=== PATIENT | female | born 1975 | race Caucasian/White ===

== ENCOUNTER 2021-10-23 12:10 | Emergency (ER) | payer OTHER, SELFPAY ==
[2021-10-23 12:20] VITALS: BP 140/90; PULSE 100; RESP 18; TEMP 36.4; O2SAT 100; BMI 35.4
--- NOTE | 2021-10-23 12:38 | ED_ITS ---
HPI - Nausea/Vomiting/Diarrhea General Chief complaint: Diarrhea Stated complaint: Diarrhea Time Seen by Provider: 10/23/21 12:11 History of Present Illness HPI Narrative: This 46-year-old female comes in reporting nausea, vomiting, and diarrhea for the past 7 or 8 days. She states that she has been able to take some liquids but does feel that her mouth is dry. She does not report any fevers. She has some crampy abdominal discomfort that occurs occasionally. She denies having any blood in the toilet or mucus type diarrhea. She states that she did take an antibiotic for urinary tract infection and completed this prior to these symptoms. She does not report any upper respiratory symptoms or shortness of breath. Related Data Home Medications Medication Instructions Recorded Confirmed albuterol sulfate 90 mcg/actuation 2 inh inhalation Q4H 08/24/21 09/24/21 breath activated powder inhaler,sensor (Proair Digihaler) diphenhydramine 25 1 tab PO Q6H PRN 08/24/21 09/24/21 mg-acetaminophen 500 mg tablet (Tylenol PM Extra Strength) epinephrine 0.3 mg/0.3 mL 0.3 mg IM ONCE 08/24/21 09/24/21 injection, auto-injector ferrous gluconate 324 mg (38 mg 324 mg PO BID 08/24/21 09/24/21 iron) tablet fluticasone propionate 50 2 spray intranasal QDAY 08/24/21 09/24/21 mcg/actuation nasal spray,suspension (Allergy Relief (fluticasone)) furosemide 20 mg tablet 20 mg PO DAILY 08/24/21 09/24/21 loratadine 10 mg tablet (Allergy 10 mg PO QDAY 08/24/21 09/24/21 Relief (loratadine)) metformin 500 mg tablet 500 mg PO BID 08/24/21 09/24/21 nitrofurantoin macrocrystal 100 mg 100 mg PO BID 08/24/21 09/24/21 capsule omeprazole 20 mg capsule,delayed 20 mg PO BID 08/24/21 09/24/21 release phenazopyridine 200 mg tablet 200 mg PO TID PRN 08/24/21 09/24/21 prochlorperazine maleate 10 mg 10 mg PO TID PRN 08/24/21 09/24/21 tablet pseudoephedrine HCl 120 mg 120 mg PO Q12H 08/24/21 09/24/21 tablet,extended release (Sudafed 12 Hour) scopolamine base 1 mg over 3 days 1 patch transdermal Q3D PRN 08/24/21 09/24/21 transdermal patch spironolactone 25 mg tablet 25 mg PO BID 08/24/21 09/24/21 warfarin 3 mg tablet See Rx Instructions PO QDAY 08/24/21 09/24/21 Previous Rx's Medication Instructions Recorded cyclobenzaprine 10 mg tablet 10 mg PO DAILY PRN muscle spasm 09/01/21 #30 tabs minocycline 100 mg capsule 100 mg PO QDAY #90 caps 09/01/21 tramadol 50 mg tablet 50 - 100 mg PO Q6H PRN pain #90 09/01/21 tabs gabapentin 300 mg capsule 300 - 600 mg PO TID PRN pain #360 10/05/21 caps trazodone 50 mg tablet 50 mg PO .hs #90 tabs 10/05/21 ondansetron HCl 4 mg tablet 4 mg PO Q6H #20 tabs 10/23/21 Allergies Allergy/AdvReac Type Severity Reaction Status Date / Time bee venom protein (honey bee) Allergy Severe Verified 09/24/21 13:00 clavulanic acid Allergy Severe Verified 09/24/21 13:00 diphtheria,pertussis Allergy Severe Swelling Verified 09/24/21 13:00 (acellular),te [From Boostrix Tdap] Penicillins Allergy Severe Hives Verified 09/24/21 13:00 Sulfa (Sulfonamide Allergy Severe N/V Verified 09/24/21 13:00 Antibiotics) latex Allergy Intermediate Verified 09/24/21 13:00 cat dander Allergy Mild Hives Verified 09/24/21 13:00 codeine Allergy Mild Vomiting Verified 09/24/21 13:00 dog dander Allergy Mild Hives Verified 09/24/21 13:00 strawberry Allergy Mild numbness Verified 09/24/21 13:00 lips and tongue Dust Allergy Severe Wheezing Uncoded 09/24/21 13:00 Tetanus toxoid Allergy Severe major Uncoded 09/24/21 13:00 swelling Tobacco Allergy Intermediate sinusitis Uncoded 09/24/21 13:00 Birds Allergy Mild Hives Uncoded 09/24/21 13:00 tropical fruits Allergy Mild hives, Uncoded 09/24/21 13:00 swelling Review of Systems Status of ROS: Reports: 10 or more systems reviewed and unremarkable except as noted in History and below Narrative: Constitutional: No fevers, no weight gain or loss. Eyes: No discharge. No vision changes. HENT: No congestion, no sore throat, no ear pain. Cardiovascular: No chest pain, no palpitations. Respiratory: No shortness of breath, no wheezes, no cough. Gastrointestinal: Crampy abdominal pain, nausea, vomiting, and diarrhea as described above. Genitourinary: No dysuria, no hematuria. Musculoskeletal: Normal range of motion. Skin: No rashes, no pruritis. Neurological: No dizziness, weakness, sensory change, speech change. Endo/Heme/Allergies: No bruising or bleeding. No polydipsia. Pysch: no suicidality, no anxiety, no insomnia. All other systems reviewed and are negative. [facility] Medical History Shoulder injury UTI (urinary tract infection) Surgical History History of right breast biopsy History of third molar tooth extraction (10/24/08) History of tonsillectomy and adenoidectomy (10/24/08) Hx of nasal septoplasty S/P breast biopsy S/P foot surgery S/P tonsillectomy and adenoidectomy Status post surgery of both feet Family History Other Diabetes Social History Smoking Status: Never smoker Do you use any of these nicotine containing products: None How often do you have a drink containing alcohol: monthly or less AUDIT-C Alcohol total score: 1 Non-prescribed substance use: denies use Exam Narrative: Exam Narrative: Constitutional: Well-developed, well-nourished, no acute distress. HEENT: Normocephalic, atraumatic. Neck: Normal range of motion. Nontender. Supple. Heart: Regular. No murmurs. Normal rate. Intact distal pulses. Lungs: Clear to auscultation. No chest discomfort. No wheezes, rhonchi, or rales. Abdomen: Normal bowel sounds. Nontender. No rebound tenderness. Genitalia: Deferred. Back: No midline tenderness. Normal range of motion. Extremities: Normal range of motion. No injury. Skin: Intact. No rash. Warm. No erythema or pallor. Neurologic: No altered sensation. No weakness. Alert and oriented. Psychiatric: No suicidality. No anxiety or depression. No insomnia. Nursing notes and vitals signs are reviewed. Const: Vital Signs, click to edit/add: Vital Signs - 24 hr 10/23/21 12:20 Temperature 97.6 F Pulse Rate [Left P ulse Oximeter] 100 Respiratory Rate 18 Blood Pressure [Ri ght Upper Arm] 140/90 H Pulse Oximetry 100 Oxygen Delivery Me thod Room Air Course Vital Signs Vital signs: Initial Vital Signs Temperature 97.6 F 10/23/21 12:20 Temperature Source Temporal Artery Scan 10/23/21 12:20 Pulse Rate 100 10/23/21 12:20 Respiratory Rate 18 10/23/21 12:20 Blood Pressure 140/90 H 10/23/21 12:20 Blood Pressure Mean 106 10/23/21 12:20 Blood Pressure Position Sitting 10/23/21 12:20 Pulse Oximetry 100 10/23/21 12:20 Oxygen Delivery Method 10/23/21 12:20 Vital Signs Temperature 97.6 F 10/23/21 12:20 Pulse Rate 100 10/23/21 12:20 Respiratory Rate 18 10/23/21 12:20 Blood Pressure 140/90 H 10/23/21 12:20 Pulse Oximetry 100 10/23/21 12:20 Oxygen Delivery Method 10/23/21 12:20 Temperature 97.6 F 10/23/21 12:20 Pulse Rate 100 10/23/21 12:20 Respiratory Rate 18 10/23/21 12:20 Blood Pressure 140/90 H 10/23/21 12:20 Pulse Oximetry 100 10/23/21 12:20 Oxygen Delivery Method 10/23/21 12:20 MDM - Nausea/Vomiting/Diarrhea MDM Narrative Medical decision making narrative: This patient comes in with nausea, vomiting, and diarrhea for the past week or so. She arrives with normal vital signs. An IV was established where she received a L of normal saline and 4 mg of Zofran. Lab results returned with findings that are consistent with previous values. She does have some anemia and has a history of non alcoholic steatohepatitis. With the treatments received today her nausea is much improved. She is okay to return home and advance her diet as tolerated. She received a prescription for Zofran. Lab Data Labs: Lab Results 10/23/21 10/23/21 10/23/21 Range/Units 12:36 12:36 12:36 WBC 3.28 L (4.50-11.00) K/uL RBC 3.30 L (4.00-5.20) m/uL Hgb 9.9 L (12.0-16.0) gm/dL Hct 32.0 L (33.0-51.0) % MCV 97 (80-100) fL MCH 30 (26-34) pg MCHC 31 L (32-36) gm/dL RDW Coeff of Kaleb 17.1 H (11.5-15.5) % Plt Count 78 L (140-440) K/uL Neut % (Auto) 74.2 H (42.0-72.0) % Lymph % (Auto) 9.1 L (20-44) % Davison % (Auto) 14.3 H (0.0-11.0) % Eos % (Auto) 1.5 (0.0-7.0) % Baso % (Auto) 0.9 (0.0-3.0) % Neut # (Auto) 2.40 (1.7-7.0) K/uL Lymph # (Auto) 0.30 L (0.90-2.90) K/uL Davison # (Auto) 0.50 (0.00-0.90) K/UL Eos # (Auto) 0.00 (0.00-0.50) K/uL Baso # (Auto) 0.00 (0.00-0.30) K/uL Abs Immat Gran (auto) 0.00 (0.00-0.30) K/uL Sodium 134 L (135-149) mmol/L Potassium 3.5 L (3.6-5.1) mmol/L Chloride 103 (96-114) mmol/L Carbon Dioxide 21 (20-32) mmol/L BUN < 2 L (5-24) mg/dL Creatinine 0.4 L (0.5-1.5) mg/dL Estimated Creat Clear 146.92 Estimated GFR 124 ml/min Glucose 115 (60-115) mg/dL Calcium 8.3 L (8.4-10.6) mg/dL Total Bilirubin (0.1-1.5) mg/dL Direct Bilirubin (0.0-0.5) mg/dL AST (12-35) U/L ALT (4-35) U/L Alkaline Phosphatase (40-150) U/L Total Protein (6.0-8.3) g/dL Albumin (3.3-5.0) g/dL Lipase (23-300) U/L SARS-CoV-2 (PCR) Negative SARS-CoV-2 (Negative) Influenza Type A (PCR) Negative PCR FLU A (Negative) Influenza Type B (PCR) Negative PCR FLU B (Negative) 10/23/21 Range/Units 12:36 WBC (4.50-11.00) K/uL RBC (4.00-5.20) m/uL Hgb (12.0-16.0) gm/dL Hct (33.0-51.0) % MCV (80-100) fL MCH (26-34) pg MCHC (32-36) gm/dL RDW Coeff of Kaleb (11.5-15.5) % Plt Count (140-440) K/uL Neut % (Auto) (42.0-72.0) % Lymph % (Auto) (20-44) % Davison % (Auto) (0.0-11.0) % Eos % (Auto) (0.0-7.0) % Baso % (Auto) (0.0-3.0) % Neut # (Auto) (1.7-7.0) K/uL Lymph # (Auto) (0.90-2.90) K/uL Davison # (Auto) (0.00-0.90) K/UL Eos # (Auto) (0.00-0.50) K/uL Baso # (Auto) (0.00-0.30) K/uL Abs Immat Gran (auto) (0.00-0.30) K/uL Sodium (135-149) mmol/L Potassium (3.6-5.1) mmol/L Chloride (96-114) mmol/L Carbon Dioxide (20-32) mmol/L BUN (5-24) mg/dL Creatinine (0.5-1.5) mg/dL Estimated Creat Clear Estimated GFR ml/min Glucose (60-115) mg/dL Calcium (8.4-10.6) mg/dL Total Bilirubin 1.5 (0.1-1.5) mg/dL Direct Bilirubin 0.8 H (0.0-0.5) mg/dL AST 48 H (12-35) U/L ALT 23 (4-35) U/L Alkaline Phosphatase 221 H (40-150) U/L Total Protein 7.2 (6.0-8.3) g/dL Albumin 3.1 L (3.3-5.0) g/dL Lipase 135 (23-300) U/L SARS-CoV-2 (PCR) (Negative) Influenza Type A (PCR) (Negative) Influenza Type B (PCR) (Negative) Discharge Plan Discharge Clinical Impression: Gastroenteritis Patient Disposition: Home, Self-Care Condition: Stable Instructions: Gastroenteritis (ED) Additional Instructions: Increased diet as tolerated. Take medication as needed and indicated. Follow up with MD or return if worsening. Prescriptions: New ondansetron HCl 4 mg tablet 4 mg PO Q6H Qty: 20 0RF No Action loratadine [Allergy Relief (loratadine)] 10 mg tablet 10 mg PO QDAY pseudoephedrine HCl [Sudafed 12 Hour] 120 mg tablet extended release 120 mg PO Q12H Proair Digihaler 90 mcg/actuation aero powdr breath act w/sensor 2 inh inhalation Q4H epinephrine 0.3 mg/0.3 mL auto-injector 0.3 mg IM ONCE Rx Instructions: as a single dose; may repeat once ferrous gluconate 324 mg (38 mg iron) tablet 324 mg PO BID fluticasone propionate [Allergy Relief (fluticasone)] 50 mcg/actuation spray,suspension 2 spray intranasal QDAY Rx Instructions: administer into each nostril furosemide 20 mg tablet 20 mg PO DAILY metformin 500 mg tablet 500 mg PO BID nitrofurantoin macrocrystal 100 mg capsule 100 mg PO BID Rx Instructions: must administer with a meal/food omeprazole 20 mg capsule,delayed release(DR/EC) 20 mg PO BID phenazopyridine 200 mg tablet 200 mg PO TID PRN prochlorperazine maleate 10 mg tablet 10 mg PO TID PRN scopolamine base 1 mg over 3 days patch 3 day 1 patch transdermal Q3D PRN spironolactone 25 mg tablet 25 mg PO BID diphenhydramine-acetaminophen [Tylenol PM Extra Strength] 25-500 mg tablet 1 tab PO Q6H PRN warfarin 3 mg tablet See Rx Instructions PO QDAY Label Comments: KWONG 3 mg,M, 1.5 MG, TU 3 MG, W 1.5 MG, TH 3 MG, F 1.5 MG, SA 3 MG Rx Instructions: 1.5-3 PO every day; 1.5 mg Q Monday, and 3 mg Q Monday tramadol 50 mg tablet 50 - 100 mg PO Q6H PRN (Reason: pain) Qty: 90 0RF cyclobenzaprine 10 mg tablet 10 mg PO DAILY PRN (Reason: muscle spasm) Qty: 30 3RF minocycline 100 mg capsule 100 mg PO QDAY Qty: 90 3RF trazodone 50 mg tablet 50 mg PO .hs Qty: 90 3RF gabapentin 300 mg capsule 300 - 600 mg PO TID PRN (Reason: pain) Qty: 360 5RF Follow Up/Referrals: Dl Oneil MD [Primary Care Provider] - Stand Alone Forms: [facility] Info Instructions
[2021-10-23] MEDS: 0.9 % SODIUM CHLORIDE 1000 ml 1,000 ML IV (13:07)
[2021-10-23 13:08] LABS: Basophils Percent Auto 0.9 % (0.0-3.0); Eosinophils Percent Auto 1.5 % (0.0-7.0); Hemoglobin* 9.9 gm/dL (12.0-16.0); Lymphocytes Percent Auto 9.1 % (20-44); Mean Corpuscular HGB Conc 31 gm/dL (32-36); Mean Corpuscular Hemoglobin 30 pg (26-34); Mean Corpuscular Volume 97 fL (80-100); Monocytes Percent Auto 14.3 % (0.0-11.0); Neutrophils Percent Auto 74.2 % (42.0-72.0); Platelet Count* 78 K/uL (140-440); RDW Coefficient of Variation % 17.1 % (11.5-15.5); White Blood Count* 3.28 K/uL (4.50-11.00)
[2021-10-23] MEDS: ONDANSETRON 2 MG/ML inj 4 MG IVP (13:08)
[2021-10-23 13:10] LABS: Slide Review Reflex No
[2021-10-23 13:44] LABS: PCR FLU A Negative PCR FLU A (Negative); PCR FLU B Negative PCR FLU B (Negative)
[2021-10-23 13:53] LABS: SARS PCR* Negative SARS-CoV-2 (Negative)
[2021-10-23 13:57] LABS: Chloride* 103 mmol/L (96-114); Sodium* 134 mmol/L (135-149)
[2021-10-23 13:58] LABS: Albumin* 3.1 g/dL (3.3-5.0); Potassium* 3.5 mmol/L (3.6-5.1)
[2021-10-23 14:00] LABS: Carbon Dioxide* 21 mmol/L (20-32); Creatinine* 0.4 mg/dL (0.5-1.5); Est. Creatinine Clearance* 146.92; Estimated Glomerular Filt Rate 124 ml/min
[2021-10-23 14:01] LABS: Aspartate Amino Transferase* 48 U/L (12-35); Bilirubin Direct* 0.8 mg/dL (0.0-0.5); Bilirubin Total* 1.5 mg/dL (0.1-1.5); Calcium* 8.3 mg/dL (8.4-10.6); Glucose* 115 mg/dL (60-115); Total Protein* 7.2 g/dL (6.0-8.3)
[2021-10-23 14:02] LABS: Alanine Aminotransferase* 23 U/L (4-35); Alkaline Phosphatase* 221 U/L (40-150); Lipase* 135 U/L (23-300)
[2021-10-23 14:06] LABS: Blood Urea Nitrogen* < 2 mg/dL (5-24)
[2021-10-23 14:27] VITALS: BP 139/90; PULSE 95; RESP 18; O2SAT 100
== END 2021-10-23 14:34 | disposition home or self-care (01) ==
PROVIDERS: Emergency Provider Emergency Medicine Emergency Medical Services; PCP Family Medicine
DX: K52.9 Noninfective gastroenteritis and colitis, unspecified (principal); D64.9 Anemia, unspecified; K75.81 Nonalcoholic steatohepatitis (NASH)
CPT/HCPCS: 36415; 80048; 80076; 83690; 85025; 87631; 96374; 99284; J2405; J7030

== ENCOUNTER 2021-11-07 15:43 | Inpatient (IN) | payer OTHER, SELFPAY ==
[2021-11-07] VITALS (9 sets, daily range): BP systolic 121–159; BP diastolic 86–97; PULSE 104–105; RESP 16–32; TEMP 36.4–36.7; O2SAT 100; BMI 33.7; BMI 34.2
--- NOTE | 2021-11-07 16:07 | CRLHL7_ITS ---
For Patients: As a result of the Century Cures Act, medical imaging exams and procedure reports are released immediately into your electronic medical record. You may view this report before your referring provider. If you have questions, please contact your health care provider. INDICATION: Two weeks of vomiting. COMPARISON: [address] TECHNIQUE: 91 mL Isovue-370 IV contrast. FINDINGS: Moderate amount of new ascites. Indurated appearance of presumed omentum in the anterior left abdomen and edematous mesenteries. Fat filled and fluid-filled supraumbilical midline hernia. IUD in the uterus. Heterogeneous low attenuation of liver with somewhat punctate low-attenuation cystic or low attenuation nodular appearance. Portal veins are patent. Spleen size is moderately enlarged at 15.5 cm. No varices appreciated. Indistinct intermediate attenuation possible dependent sludge in the inferior body of the gallbladder. Mucosal mass in the lumen is felt less likely. Small somewhat poorly defined faviola hepatis, portacaval and peripancreatic lymph nodes presumably from liver disease. No dilated or inflamed large or small bowel. IMPRESSION: 1. Interval development of prominent ascites presumably related to chronic cirrhotic liver and portal hypertension. Moderate splenomegaly. Vascular congestion in the mesentery. 2. Chronic supraumbilical abdominal wall hernia. 3. Presumed dependent sludge in the gallbladder. Ultrasound recommended for better characterization. Intraluminal mass felt unlikely but not excluded. Please note that all CT scans at this facility use dose modulation, iterative reconstruction, and/or weight-based dosing when appropriate to reduce radiation dose to as low as reasonably achievable. Dictated by Jeff Wolf MD @ 11/07/2021 5:25:04 PM (Electronically Signed)
--- NOTE | 2021-11-07 16:25 | ED_ITS ---
HPI - General Adult General Date Seen: 11/07/21 Chief complaint: Nausea/Vomiting Stated complaint: vomiting and finger numbness Time Seen by Provider: 11/07/21 15:49 Source: patient History of Present Illness HPI narrative: Patient is a 46-year-old woman who says she has been having difficulty with daily vomiting since seen here on October 23. She was having diarrhea at that time and that has resolved. She says she has not had a bowel movement in multiple days. She does not feel constipated however, she just says she is not really taking in much orally. She feels nauseated, she has Zofran but says that makes her feel more nauseated. She is vomiting 3 to 4 times a day, not associated with eating. Last time was earlier today. She has not had any fevers. She denies urinary symptoms, bloody stools. She sometimes has some b lood in her emesis. She says she had a problem like this in 2014 where she had weeks of vomiting, eventually just resolved and she says no cause was ever found, although she says also that she does not recall any tests being done. She says that she believes she was given medication for yeast infection and that helped. She also says that her fingers and toes are feeling numb today. I asked her about previous colonoscopy which she says she last had in 2015 or 17, she reports that that was unremarkable. She also tells me she had a previous abdominal surgery because of intestinal pain, she had a laparotomy and says that part of her intestine was removed, but she does not think that they ever told her why. As far she knows she still has her appendix. She believes she still has her gallbladder. She takes warfarin for a history of factor 5 Leiden and DVT. She is here with her boyfriend. She does not smoke, she says that she drank a little bit before this problem with vomiting started, but denies drinking to excess. She has not had anything to drink since starting have problems with vomiting. Related Data Home Medications Medication Instructions Recorded Confirmed albuterol sulfate 90 mcg/actuation 2 inh inhalation Q4H 08/24/21 09/24/21 breath activated powder inhaler,sensor (Proair Digihaler) diphenhydramine 25 1 tab PO Q6H PRN 08/24/21 09/24/21 mg-acetaminophen 500 mg tablet (Tylenol PM Extra Strength) epinephrine 0.3 mg/0.3 mL 0.3 mg IM ONCE 08/24/21 09/24/21 injection, auto-injector ferrous gluconate 324 mg (38 mg 324 mg PO BID 08/24/21 09/24/21 iron) tablet fluticasone propionate 50 2 spray intranasal QDAY 08/24/21 09/24/21 mcg/actuation nasal spray,suspension (Allergy Relief (fluticasone)) furosemide 20 mg tablet 20 mg PO DAILY 08/24/21 09/24/21 loratadine 10 mg tablet (Allergy 10 mg PO QDAY 08/24/21 09/24/21 Relief (loratadine)) metformin 500 mg tablet 500 mg PO BID 08/24/21 09/24/21 nitrofurantoin macrocrystal 100 mg 100 mg PO BID 08/24/21 09/24/21 capsule omeprazole 20 mg capsule,delayed 20 mg PO BID 08/24/21 09/24/21 release phenazopyridine 200 mg tablet 200 mg PO TID PRN 08/24/21 09/24/21 prochlorperazine maleate 10 mg 10 mg PO TID PRN 08/24/21 09/24/21 tablet pseudoephedrine HCl 120 mg 120 mg PO Q12H 08/24/21 09/24/21 tablet,extended release (Sudafed 12 Hour) scopolamine base 1 mg over 3 days 1 patch transdermal Q3D PRN 08/24/21 09/24/21 transdermal patch spironolactone 25 mg tablet 25 mg PO BID 08/24/21 09/24/21 warfarin 3 mg tablet See Rx Instructions PO QDAY 08/24/21 09/24/21 Previous Rx's Medication Instructions Recorded cyclobenzaprine 10 mg tablet 10 mg PO DAILY PRN muscle spasm 09/01/21 #30 tabs minocycline 100 mg capsule 100 mg PO QDAY #90 caps 09/01/21 tramadol 50 mg tablet 50 - 100 mg PO Q6H PRN pain #90 09/01/21 tabs gabapentin 300 mg capsule 300 - 600 mg PO TID PRN pain #360 10/05/21 caps trazodone 50 mg tablet 50 mg PO .hs #90 tabs 10/05/21 ondansetron HCl 4 mg tablet 4 mg PO Q6H #30 tabs 11/02/21 Allergies Allergy/AdvReac Type Severity Reaction Status Date / Time bee venom protein (honey bee) Allergy Severe Verified 09/24/21 13:00 clavulanic acid Allergy Severe Verified 09/24/21 13:00 diphtheria,pertussis Allergy Severe Swelling Verified 09/24/21 13:00 (acellular),te [From Boostrix Tdap] Penicillins Allergy Severe Hives Verified 09/24/21 13:00 Sulfa (Sulfonamide Allergy Severe N/V Verified 09/24/21 13:00 Antibiotics) latex Allergy Intermediate Verified 09/24/21 13:00 cat dander Allergy Mild Hives Verified 09/24/21 13:00 codeine Allergy Mild Vomiting Verified 09/24/21 13:00 dog dander Allergy Mild Hives Verified 09/24/21 13:00 strawberry Allergy Mild numbness Verified 09/24/21 13:00 lips and tongue Dust Allergy Severe Wheezing Uncoded 09/24/21 13:00 Tetanus toxoid Allergy Severe major Uncoded 09/24/21 13:00 swelling Tobacco Allergy Intermediate sinusitis Uncoded 09/24/21 13:00 Birds Allergy Mild Hives Uncoded 09/24/21 13:00 tropical fruits Allergy Mild hives, Uncoded 09/24/21 13:00 swelling Review of Systems Status of ROS: Reports: 10 or more systems reviewed and unremarkable except as noted in History and below [facility] Medical History (Updated 11/07/21 @ 21:28 by Prosper Silvestre MD) Adult acne Asthma Chronic anticoagulation Esophageal varices Factor 5 Leiden mutation, heterozygous Foot injury Insomnia Nonalcoholic steatohepatitis Obesity Polycystic ovarian syndrome Polycystic ovaries (10/24/08) Portal hypertension with esophageal varices Portal vein thrombosis Shoulder injury Traumatic brain injury UTI (urinary tract infection) Surgical History History of right breast biopsy History of third molar tooth extraction (10/24/08) History of tonsillectomy and adenoidectomy (10/24/08) Hx of nasal septoplasty S/P breast biopsy S/P foot surgery S/P tonsillectomy and adenoidectomy Status post surgery of both feet Family History Other Diabetes Social History Highest level of school completed/degree received: Associate degree: occupational, technical, vocational program Smoking Status: Never smoker Do you use any of these nicotine containing products: None How often do you have a drink containing alcohol: monthly or less AUDIT-C Alcohol total score: 1 Non-prescribed substance use: denies use Caffeine: Yes (soda in AM) Exam Narrative: Exam Narrative: Vital signs as noted above. In general, an alert, well-appearing patient. Head: Normocephalic, atraumatic. Eyes: Pupils are equal reactive. Extraocular movements are full. Conjunctivae are normal. ENT: Mucous membranes are slightly dry. Throat is normal. Neck: Supple without lymphadenopathy. Heart: Regular rate and rhythm. No murmur or rub. Lungs: Clear bilaterally. No increased work of breathing, crackles or wheezes. Tachypneic. Abdomen: Soft and nontender. No organomegaly. Small hernia near the umbilicus which is easily reducible. No erythema. Extremities: Well perfused. No edema. No calf tenderness. Pulses intact. Neurologic: Patient is alert and oriented to person and place. Speech is fluent. Face is symmetric. Moves all extremities equally. Affect: Normal. Skin: Warm and dry. Well perfused. Const: Vital Signs, click to edit/add: Vital Signs - 24 hr 11/07/21 15:49 11/07/21 18:49 11/07/21 19:00 Temperature 97.8 F 97.8 F Pulse Rate [Left P ulse Oximeter] Pulse Rate [Pulse Oximeter] 105 H 105 H Respiratory Rate 32 H 32 H Blood Pressure [Le ft Arm] Blood Pressure [Ri ght Upper Arm] 136/90 H 136/90 H 121/96 H Pulse Oximetry 100 100 Oxygen Delivery Me thod Room Air Room Air 11/07/21 19:30 11/07/21 20:28 Temperature 97.6 F Pulse Rate [Left P ulse Oximeter] 105 H Pulse Rate [Pulse Oximeter] Respiratory Rate 16 Blood Pressure [Le ft Arm] 159/97 H Blood Pressure [Ri ght Upper Arm] 150/86 H Pulse Oximetry 100 Oxygen Delivery Me thod Room Air Documenting provider has reviewed patient's vital signs: yes Course Course Hospital Course: We will go ahead and place an IV and give her some fluids, recheck labs. I reviewed her records from the . She is tachypneic here, which may be related to some anxiety but we will see how labs look in terms of whether not she is acidotic at this point. I do think she just has likely some tingling in her fingers and toes related to hyperventilation most likely. I am going to try giving her some Compazine here since she has not felt that Zofran is helpful. I am going to do a CT scan today to look for any evidence of increased tightest, cholecystitis, obstruction, hepatitis, or other acute process which may be contributing to her vomiting. Her lactate can back rather quickly at 6.9. She was given a L of normal saline and this was rechecked at 5.8. I did do a venous gas at that point and her pH was normal although she was noted to have a bicarb of 16 and a pCO2 of 25, so I think she has a compensated metabolic acidosis at this point. White blood cell count is 10.9, hemoglobin is 12.3 and platelets an hour normal although looking at her labs from the end of September at that time she had 78,000 platelets and her white blood cell count was suppressed at 3.8. Her basic metabolic panel shows a normal creatinine of 0.5. CO2 is 11. Sodium is low at 132 but potassium is normal at 4. Blood sugar was normal at 111. LFT show an elevated bilirubin of 2.3, increased from 1.5 at the end of September. Direct is 1.1. AST is 86, ALT of 47, alk-phos is stable at 221. CRP is minimally elevated at 2.8. Total protein is slightly elevated at 8.7, albumin is normal at 3.9. Lipase is normal at 246. Urinalysis showed ketones and bilirubin, no evidence of infection. Drug screen was positive for tricyclics; according to the drug list I have she is not on a tricyclic antidepressant. I am not sure if something is cross reacting or if she is on medication that we do not have on our list. I reviewed her CT scan, she has evidence of ascites and her gallbladder looks distended with what looks like sludge. The wall looked thickened to me as well. CT scan is read by Radiology as follows:IMPRESSION: 1. Interval development of prominent ascites presumably related to chronic cirrhotic liver and portal hypertension. Moderate splenomegaly. Vascular congestion in the mesentery. 2. Chronic supraumbilical abdominal wall hernia. 3. Presumed dependent sludge in the gallbladder. Ultrasound recommended for better characterization. Intraluminal mass felt unlikely but not excluded. I ordered a right upper quadrant ultrasound which is read as follows: Findings: The liver is nodular and heterogeneous with a shrunken morphology characteristic of significant cirrhosis. There is significant ascites identified. The aorta and cava are not well seen. The right kidney is unremarkable in size and appearance. The right kidney measures 10.7 x 5.5 x 5.4 centimeters. No pancreatic ductal dilatation or pancreatic mass. The common duct measures 4 millimeters which is normal. The gallbladder is abnormal. Gallbladder wall is diffusely thickened and irregular at 9 millimeters. Greater than 3 millimeters is considered abnormal. This probably is not associated with acute cholecystitis. This is probably associated with chronic liver disease, hypoproteinemia or portal hypertension. There is nodular masslike thickening of a portion of the wall. This probably represents sludge within the gallbladder. It does not appear to be vascularized at Doppler. It does make sense to me the gallbladder is likely not thickened due to cholecystitis given that she does not complain of abdominal pain and does not have right upper quadrant tenderness or Garcia sign. I did talk with Dr. Vieyra, on-call for Gastroenterology at [facility]. They do not have any bed availability, although he said that really she does not require admission to a facility with GI. He said that he would recommend admission for diuresis, getting her on a low-sodium diet, getting her metabolically improved. He also would recommend paracentesis to make sure she does not have spontaneous bacterial peritonitis, despite the fact that she does not have fever abdominal pain, because she has new ascites and has an elevated lactate. However, her INR returned at 15, so we are not able to do a paracentesis right now. I did run her by General surgery, and when her INR is acceptable they are willing to do a paracentesis. It sounds like in talking with the technology applications teacher they feel like there is enough ascites to get a sample for analysis. I am going to have the lab recheck her INR just to make sure that is accurate, and then have discussed that with the hospitalist who says that he will manage reversing that if needed. She does not have any active bleeding and I do not think there is any urgency to that. Vital Signs Vital signs: Initial Vital Signs Temperature 97.8 F 11/07/21 15:49 Temperature Source Temporal Artery Scan 11/07/21 15:49 Pulse Rate 105 H 11/07/21 15:49 Respiratory Rate 32 H 11/07/21 15:49 Blood Pressure 136/90 H 11/07/21 15:49 Blood Pressure Mean 105 11/07/21 15:49 Blood Pressure Position Supine 11/07/21 15:49 Pulse Oximetry 100 11/07/21 15:49 Oxygen Delivery Method 11/07/21 15:49 Vital Signs Temperature 97.8 F 11/07/21 15:49 Pulse Rate 105 H 11/07/21 15:49 Respiratory Rate 32 H 11/07/21 15:49 Blood Pressure 136/90 H 11/07/21 15:49 Pulse Oximetry 100 11/07/21 15:49 Oxygen Delivery Method 11/07/21 15:49 Temperature 97.6 F 11/07/21 20:28 Pulse Rate 105 H 11/07/21 20:28 Respiratory Rate 16 11/07/21 20:28 Blood Pressure 159/97 H 11/07/21 20:28 Pulse Oximetry 100 11/07/21 20:28 Oxygen Delivery Method 11/07/21 20:28 Medical Decision Making Lab Data Labs: Lab Results 11/07/21 11/07/21 11/07/21 Range/Units 16:09 16:09 16:40 WBC 10.90 (4.50-11.00) K/uL RBC 4.06 (4.00-5.20) m/uL Hgb 12.3 (12.0-16.0) gm/dL Hct 37.9 (33.0-51.0) % MCV 93 (80-100) fL MCH 30 (26-34) pg MCHC 33 (32-36) gm/dL RDW Coeff of Kaleb 18.4 H (11.5-15.5) % Plt Count 216 (140-440) K/uL Neut % (Auto) 81.9 H (42.0-72.0) % Lymph % (Auto) 7.5 L (20-44) % [place] % (Auto) 8.3 (0.0-11.0) % Eos % (Auto) 1.3 (0.0-7.0) % Baso % (Auto) 0.5 (0.0-3.0) % Neut # (Auto) 8.90 H (1.7-7.0) K/uL Lymph # (Auto) 0.80 L (0.90-2.90) K/uL [place] # (Auto) 0.90 (0.00-0.90) K/UL Eos # (Auto) 0.14 (0.00-0.50) K/uL Baso # (Auto) 0.05 (0.00-0.30) K/uL Abs Immat Gran (auto) 0.05 (0.00-0.30) K/uL INR (0.91-1.10) APTT (23-33) Seconds VBG pH (7.32-7.43) VBG pCO2 (40-50) mmHG VBG pO2 (25-47) mmHG VBG HCO3 (21-28) mmol/L Sodium (135-149) mmol/L Potassium (3.6-5.1) mmol/L Chloride (96-114) mmol/L Carbon Dioxide (20-32) mmol/L BUN (5-24) mg/dL Creatinine (0.5-1.5) mg/dL Estimated Creat Clear Estimated GFR ml/min Glucose (60-115) mg/dL Lactate (0.5-1.9) mmol/L Calcium (8.4-10.6) mg/dL Total Bilirubin (0.1-1.5) mg/dL Direct Bilirubin (0.0-0.5) mg/dL AST (12-35) U/L ALT (4-35) U/L Alkaline Phosphatase (40-150) U/L C-Reactive Protein (0.5-1.0) mg/dL Total Protein (6.0-8.3) g/dL Albumin (3.3-5.0) g/dL Lipase (23-300) U/L Urine Color Yellow (Yellow) Urine Appearance Clear (Clear) Urine pH 6.0 (5.0-8.5) Ur Specific [place] >= 1.030 (1.000-1.030) Urine Protein 1+ A (Negative) Urine Glucose (UA) Negative (Negative) Urine Ketones 2+ A (Negative) Urine Blood Trace-intact A (Negative) Urine Nitrite Negative (Negative) Urine Bilirubin 2+ A (Negative) Urine Urobilinogen 1.0 (0.2-1.0) Ur Leukocyte Esterase Negative (Negative) Urine RBC 2-5 A (0-2) Urine WBC 0-2 (0-5) Ur Squamous Epith Cells Few (None-Few) Urine Bacteria Few A (None) Urine Opiates Screen Negative (Negative) Ur Oxycodone Screen Negative (Negative) Urine Methadone Screen Negative (Negative) Ur Propoxyphene Screen Negative (Negative) Ur Barbiturates Screen Negative (Negative) U Tricyclic Antidepress POSITIVE A* (Negative) Ur Phencyclidine Scrn Negative (Negative) Ur Amphetamines Screen Negative (Negative) U Methamphetamines Scrn Negative (Negative) U Benzodiazepines Scrn Negative (Negative) Urine Cocaine Screen Negative (Negative) U Marijuana (THC) Screen Negative (Negative) Ur Drug Screen Comment See Note SARS-CoV-2 (PCR) (Negative) Influenza Type A (PCR) (Negative) Influenza Type B (PCR) (Negative) RSV (PCR) (Negative) 11/07/21 11/07/21 11/07/21 Range/Units 16:40 16:40 17:43 WBC (4.50-11.00) K/uL RBC (4.00-5.20) m/uL Hgb (12.0-16.0) gm/dL Hct (33.0-51.0) % MCV (80-100) fL MCH (26-34) pg MCHC (32-36) gm/dL RDW Coeff of Kaleb (11.5-15.5) % Plt Count (140-440) K/uL Neut % (Auto) (42.0-72.0) % Lymph % (Auto) (20-44) % [place] % (Auto) (0.0-11.0) % Eos % (Auto) (0.0-7.0) % Baso % (Auto) (0.0-3.0) % Neut # (Auto) (1.7-7.0) K/uL Lymph # (Auto) (0.90-2.90) K/uL [place] # (Auto) (0.00-0.90) K/UL Eos # (Auto) (0.00-0.50) K/uL Baso # (Auto) (0.00-0.30) K/uL Abs Immat Gran (auto) (0.00-0.30) K/uL INR 15.27 H* (0.91-1.10) APTT (23-33) Seconds VBG pH (7.32-7.43) VBG pCO2 (40-50) mmHG VBG pO2 (25-47) mmHG VBG HCO3 (21-28) mmol/L Sodium 132 L (135-149) mmol/L Potassium 4.0 (3.6-5.1) mmol/L Chloride 100 (96-114) mmol/L Carbon Dioxide 11 L (20-32) mmol/L BUN 5 (5-24) mg/dL Creatinine 0.5 (0.5-1.5) mg/dL Estimated Creat Clear 117.54 Estimated GFR 118 ml/min Glucose 111 (60-115) mg/dL Lactate 6.9 H* (0.5-1.9) mmol/L Calcium 8.9 (8.4-10.6) mg/dL Total Bilirubin 2.3 H (0.1-1.5) mg/dL Direct Bilirubin 1.1 H (0.0-0.5) mg/dL AST 86 H (12-35) U/L ALT 47 H (4-35) U/L Alkaline Phosphatase 221 H (40-150) U/L C-Reactive Protein 2.8 H (0.5-1.0) mg/dL Total Protein 8.7 H (6.0-8.3) g/dL Albumin 3.9 (3.3-5.0) g/dL Lipase 246 (23-300) U/L Urine Color (Yellow) Urine Appearance (Clear) Urine pH (5.0-8.5) Ur Specific [place] (1.000-1.030) Urine Protein (Negative) Urine Glucose (UA) (Negative) Urine Ketones (Negative) Urine Blood (Negative) Urine Nitrite (Negative) Urine Bilirubin (Negative) Urine Urobilinogen (0.2-1.0) Ur Leukocyte Esterase (Negative) Urine RBC (0-2) Urine WBC (0-5) Ur Squamous Epith Cells (None-Few) Urine Bacteria (None) Urine Opiates Screen (Negative) Ur Oxycodone Screen (Negative) Urine Methadone Screen (Negative) Ur Propoxyphene Screen (Negative) Ur Barbiturates Screen (Negative) U Tricyclic Antidepress (Negative) Ur Phencyclidine Scrn (Negative) Ur Amphetamines Screen (Negative) U Methamphetamines Scrn (Negative) U Benzodiazepines Scrn (Negative) Urine Cocaine Screen (Negative) U Marijuana (THC) Screen (Negative) Ur Drug Screen Comment SARS-CoV-2 (PCR) (Negative) Influenza Type A (PCR) (Negative) Influenza Type B (PCR) (Negative) RSV (PCR) (Negative) 11/07/21 11/07/21 11/07/21 Range/Units 17:43 19:03 19:07 WBC (4.50-11.00) K/uL RBC (4.00-5.20) m/uL Hgb (12.0-16.0) gm/dL Hct (33.0-51.0) % MCV (80-100) fL MCH (26-34) pg MCHC (32-36) gm/dL RDW Coeff of [place] (11.5-15.5) % Plt Count (140-440) K/uL Neut % (Auto) (42.0-72.0) % Lymph % (Auto) (20-44) % [place] % (Auto) (0.0-11.0) % Eos % (Auto) (0.0-7.0) % Baso % (Auto) (0.0-3.0) % Neut # (Auto) (1.7-7.0) K/uL Lymph # (Auto) (0.90-2.90) K/uL [place] # (Auto) (0.00-0.90) K/UL Eos # (Auto) (0.00-0.50) K/uL Baso # (Auto) (0.00-0.30) K/uL Abs Immat Gran (auto) (0.00-0.30) K/uL INR 14.79 H* (0.91-1.10) APTT 105 H* (23-33) Seconds VBG pH 7.410 (7.32-7.43) VBG pCO2 25 L (40-50) mmHG VBG pO2 47.6 H (25-47) mmHG VBG HCO3 16 L (21-28) mmol/L Sodium (135-149) mmol/L Potassium (3.6-5.1) mmol/L Chloride (96-114) mmol/L Carbon Dioxide (20-32) mmol/L BUN (5-24) mg/dL Creatinine (0.5-1.5) mg/dL Estimated Creat Clear Estimated GFR ml/min Glucose (60-115) mg/dL Lactate 5.8 H* (0.5-1.9) mmol/L Calcium (8.4-10.6) mg/dL Total Bilirubin (0.1-1.5) mg/dL Direct Bilirubin (0.0-0.5) mg/dL AST (12-35) U/L ALT (4-35) U/L Alkaline Phosphatase (40-150) U/L C-Reactive Protein (0.5-1.0) mg/dL Total Protein (6.0-8.3) g/dL Albumin (3.3-5.0) g/dL Lipase (23-300) U/L Urine Color (Yellow) Urine Appearance (Clear) Urine pH (5.0-8.5) Ur Specific [place] (1.000-1.030) Urine Protein (Negative) Urine Glucose (UA) (Negative) Urine Ketones (Negative) Urine Blood (Negative) Urine Nitrite (Negative) Urine Bilirubin (Negative) Urine Urobilinogen (0.2-1.0) Ur Leukocyte Esterase (Negative) Urine RBC (0-2) Urine WBC (0-5) Ur Squamous Epith Cells (None-Few) Urine Bacteria (None) Urine Opiates Screen (Negative) Ur Oxycodone Screen (Negative) Urine Methadone Screen (Negative) Ur Propoxyphene Screen (Negative) Ur Barbiturates Screen (Negative) U Tricyclic Antidepress (Negative) Ur Phencyclidine Scrn (Negative) Ur Amphetamines Screen (Negative) U Methamphetamines Scrn (Negative) U Benzodiazepines Scrn (Negative) Urine Cocaine Screen (Negative) U Marijuana (THC) Screen (Negative) Ur Drug Screen Comment SARS-CoV-2 (PCR) Negative SARS-CoV-2 (Negative) Influenza Type A (PCR) Negative PCR FLU A (Negative) Influenza Type B (PCR) Negative PCR FLU B (Negative) RSV (PCR) Negative PCR RSV (Negative) Discharge Plan Discharge Clinical Impression: Elevated INR, Nonalcoholic steatohepatitis, Acute liver failure
[2021-11-07 16:39] LABS: Appearance Urine Clear (Clear); Bilirubin Urine 2+ (Negative); Blood Urine Trace-intact (Negative); Glucose Urine Negative (Negative); Ketones Urine 2+ (Negative); Leukocyte Esterase Urine Negative (Negative); Nitrite Urine Negative (Negative); Protein Urine 1+ (Negative); Specific Gravity Urine >= 1.030 (1.000-1.030)
[2021-11-07] MEDS: 0.9 % SODIUM CHLORIDE 1000 ml 1,000 ML IV ×3 (16:44→22:27)
[2021-11-07] MEDS: PROCHLORPERAZINE 5 MG/ML VIAL IV (16:44)
[2021-11-07 16:46] LABS: Amphetamine Screen Urine Negative (Negative); Barbiturate Screen Urine Negative (Negative); Benzodiazepines Screen Urine Negative (Negative); Cannabinoid Screen Urine Negative (Negative); Cocaine Screen Urine Negative (Negative); Methadone Screen Urine Negative (Negative); Methamphetamines Screen Urine Negative (Negative); Opiate Screen Urine Negative (Negative); Oxycodone Screen Urine Negative (Negative); Phencyclidine Screen Urine Negative (Negative)
[2021-11-07 16:48] LABS: Tricyclic Antidepressant Urine POSITIVE (Negative)
--- NOTE | 2021-11-07 16:49 | ED.NURSE ---
call from lab, urine pos tca, care nurse and md notified
[2021-11-07 16:56] LABS: Color Urine Yellow (Yellow)
[2021-11-07 16:56] LABS: Basophils Absolute Auto 0.05 K/uL (0.00-0.30); Basophils Percent Auto 0.5 % (0.0-3.0); Eosinophils Absolute Auto 0.14 K/uL (0.00-0.50); Eosinophils Percent Auto 1.3 % (0.0-7.0); Hematocrit 37.9 % (33.0-51.0); Hemoglobin* 12.3 gm/dL (12.0-16.0); Immature Granulocytes Abs Auto 0.05 K/uL (0.00-0.30); Lymphocytes Percent Auto 7.5 % (20-44); Mean Corpuscular HGB Conc 33 gm/dL (32-36); Mean Corpuscular Hemoglobin 30 pg (26-34); Mean Corpuscular Volume 93 fL (80-100); Monocytes Percent Auto 8.3 % (0.0-11.0); Neutrophils Percent Auto 81.9 % (42.0-72.0); Platelet Count* 216 K/uL (140-440); RDW Coefficient of Variation % 18.4 % (11.5-15.5); Red Blood Count 4.06 m/uL (4.00-5.20)
[2021-11-07 17:00] LABS: Lactate* 6.9 mmol/L (0.5-1.9)
[2021-11-07 17:01] LABS: Slide Review Reflex No
[2021-11-07 17:05] LABS: Bacteria Urine Few; Squamous Epithelial Cell Urine Few (None-Few); WBC Urine 0-2 (0-5)
[2021-11-07 17:13] LABS: Albumin* 3.9 g/dL (3.3-5.0); Chloride* 100 mmol/L (96-114)
[2021-11-07 17:14] LABS: Sodium* 132 mmol/L (135-149)
[2021-11-07 17:16] LABS: Alkaline Phosphatase* 221 U/L (40-150); Aspartate Amino Transferase* 86 U/L (12-35); Bilirubin Direct* 1.1 mg/dL (0.0-0.5); Bilirubin Total* 2.3 mg/dL (0.1-1.5); Blood Urea Nitrogen* 5 mg/dL (5-24); Carbon Dioxide* 11 mmol/L (20-32); Creatinine* 0.5 mg/dL (0.5-1.5); Est. Creatinine Clearance* 117.54; Estimated Glomerular Filt Rate 118 ml/min; Total Protein* 8.7 g/dL (6.0-8.3)
[2021-11-07 17:17] LABS: Calcium* 8.9 mg/dL (8.4-10.6); Glucose* 111 mg/dL (60-115); Lipase* 246 U/L (23-300)
[2021-11-07 17:19] LABS: C Reactive Protein* 2.8 mg/dL (0.5-1.0)
[2021-11-07 17:27] LABS: Alanine Aminotransferase* 47 U/L (4-35)
--- NOTE | 2021-11-07 17:31 | CRLHL7_ITS ---
For Patients: As a result of the Century Cures Act, medical imaging exams and procedure reports are released immediately into your electronic medical record. You may view this report before your referring provider. If you have questions, please contact your health care provider. Indication: Assess gallbladder appearance Technique: Sonography of the abdomen was performed limited to the structures discussed below. Comparison: Portions of a CT from earlier the same day Findings: The liver is nodular and heterogeneous with a shrunken morphology characteristic of significant cirrhosis. There is significant ascites identified. The aorta and cava are not well seen. The right kidney is unremarkable in size and appearance. The right kidney measures 10.7 x 5.5 x 5.4 centimeters. No pancreatic ductal dilatation or pancreatic mass. The common duct measures 4 millimeters which is normal. The gallbladder is abnormal. Gallbladder wall is diffusely thickened and irregular at 9 millimeters. Greater than 3 millimeters is considered abnormal. This probably is not associated with acute cholecystitis. This is probably associated with chronic liver disease, hypoproteinemia or portal hypertension. There is nodular masslike thickening of a portion of the wall. This probably represents sludge within the gallbladder. It does not appear to be vascularized at Doppler. Impression: 1. Morphologic evidence of cirrhosis. Ascites 2. Irregular thickening of the gallbladder wall measuring up to 9 millimeters. Greater than 3 millimeters is considered abnormal. This is probably not related to acute cholecystitis and is probably related to chronic liver disease, hypoproteinemia and/or portal hypertension. 3. Nonmobile masslike thickening of the wall the gallbladder. This is nonmobile and does not appear to be vascularized at Doppler. This probably represents sludge rather than a true mass. Dictated by Devon Chandler MD @ 11/07/2021 6:28:38 PM (Electronically Signed)
[2021-11-07 17:53] LABS: HCO3 VBG 16 mmol/L (21-28); PCO2 VBG 25 mmHG (40-50); PO2 VBG 47.6 mmHG (25-47)
[2021-11-07 17:58] LABS: Lactate* 5.8 mmol/L (0.5-1.9)
[2021-11-07 18:45] LABS: INR 15.27 (0.91-1.10)
[2021-11-07 19:49] LABS: INR 14.79 (0.91-1.10); Partial Thromboplastin Time* 105 Seconds (23-33); Prothrombin Time 106.3 Seconds
[2021-11-07 19:53] LABS: PCR FLU A Negative PCR FLU A (Negative); PCR FLU B Negative PCR FLU B (Negative); PCR RSV Negative PCR RSV (Negative)
[2021-11-07 19:55] LABS: SARS PCR* Negative SARS-CoV-2 (Negative)
--- NOTE | 2021-11-07 20:49 | P.IMHP_ITS ---
Hospitalist- H&P: HPI History of Present Illness Time Seen by Provider: 19:30 Date Seen: 11/07/21 Chief complaint: vomiting and finger numbness Narrative: Monica Haines is a 46 year old woman who presents to our emergency department today with a 4-6 week history of nausea, vomiting, decreased ability to maintain her hydration, decreased ability to maintain her nutritional status, at least a 15 lb weight loss over the last month, increasing abdominal girth, 1 week history of constipation, tingling sensation on her fingers and toes for the last couple of days. Typically has about 2 episodes of nausea and vomiting during the course of the day, morning and evening. Has tried ondansetron p.r.n. without success. Has episodes of dry heaves as well. Nausea and vomiting worse postprandially. Able to keep some 7 up and water down. Last few days has been able to eat only bites of pudding. Has had blood in her vomitus at times. No other bleeding. When this 1st started over a month ago she had a couple episodes of diarrhea but none since. Denies abdominal pain. Denies nausea or vomiting. She tells me she may have had abdominal surgery in the past and possibly a to part of the intestine may have been removed, her memory is not the best given her traumatic brain injury however. No other recollection of details of this. Last colonoscopy was in 2016 or 17 and was unremarkable according to her. Was treated for of bladder infection in early August with nitrofurantoin and possibly also with doxycycline. Denies any dysuria, urgency, frequency, or hematuria at this time. Denies chest heaviness, pressure, tightness, or pain. Denies dyspnea at rest, paroxysmal nocturnal dyspnea, orthopnea. Acknowledges a sense of lightheadedness. Denies syncope. Denies palpitations. She tells me she has previously been followed by Gastroenterology. Has not seen a cardiovascular surgical tech for over 6 years. Was seeing the cardiovascular surgical tech in regard to non alcoholic steatohepatitis. Follows with her primary care physician, Dr. Vasile Oneil. Does take low-dose furosemide 20 mg daily and low- dose spironolactone 25 mg daily. Additionally has a history of portal vein thrombosis as well as esophageal varices, and has known factor 5 Leiden deficiency, heterozygous, for which she is chronically anticoagulated with warfarin. Review of Systems Status of ROS: Reports: 10 or more systems reviewed and unremarkable except as noted in History and below Narrative: Acknowledges increasing fatigue and malaise. Denies night sweats. Denies cold or heat intolerance. Denies polyuria, polydipsia, polyphagia. Denies odynophagia. Acknowledges intermittent reflux. Denies pain or swelling of any extremity or myalgias or arthralgias. Acknowledges long-standing easy bruising, although she is chronically anticoagulated. Lives alone. . Has no pets. Designates her sister as her power of trade mark attorney for health should that be required. Her sister's name is Mary. Sykes cell phone number is [phone]. Patient requests DNR DNI resuscitation status. I spent a fair amount of time reviewing this with her but she is resolu te about this decision. She tells me her primary care physician is Dr. Oneil. [facility] Medical History (Updated 11/07/21 @ 21:28 by Prosper Silvestre MD) Adult acne Asthma Chronic anticoagulation Esophageal varices Factor 5 Leiden mutation, heterozygous Foot injury Insomnia Nonalcoholic steatohepatitis Obesity Polycystic ovarian syndrome Polycystic ovaries (10/24/08) Portal hypertension with esophageal varices Portal vein thrombosis Shoulder injury Traumatic brain injury UTI (urinary tract infection) Surgical History History of right breast biopsy History of third molar tooth extraction (10/24/08) History of tonsillectomy and adenoidectomy (10/24/08) Hx of nasal septoplasty S/P breast biopsy S/P foot surgery S/P tonsillectomy and adenoidectomy Status post surgery of both feet Family History Other Diabetes Social History Highest level of school completed/degree received: Associate degree: occupational, technical, vocational program Smoking Status: Never smoker Do you use any of these nicotine containing products: None How often do you have a drink containing alcohol: monthly or less AUDIT-C Alcohol total score: 1 Non-prescribed substance use: denies use Caffeine: Yes (soda in AM) Meds Home Medications and Allergies Home Medications Medication Instructions Recorded Confirmed Type albuterol sulfate 90 mcg/actuation 2 inh inhalation Q4H 08/24/21 09/24/21 History breath activated powder inhaler,sensor (Proair Digihaler) diphenhydramine 25 1 tab PO Q6H PRN 08/24/21 09/24/21 History mg-acetaminophen 500 mg tablet (Tylenol PM Extra Strength) epinephrine 0.3 mg/0.3 mL 0.3 mg IM ONCE 08/24/21 09/24/21 History injection, auto-injector ferrous gluconate 324 mg (38 mg 324 mg PO BID 08/24/21 09/24/21 History iron) tablet fluticasone propionate 50 2 spray intranasal QDAY 08/24/21 09/24/21 History mcg/actuation nasal spray,suspension (Allergy Relief (fluticasone)) furosemide 20 mg tablet 20 mg PO DAILY 08/24/21 09/24/21 History loratadine 10 mg tablet (Allergy 10 mg PO QDAY 08/24/21 09/24/21 History Relief (loratadine)) metformin 500 mg tablet 500 mg PO BID 08/24/21 09/24/21 History nitrofurantoin macrocrystal 100 mg 100 mg PO BID 08/24/21 09/24/21 History capsule omeprazole 20 mg capsule,delayed 20 mg PO BID 08/24/21 09/24/21 History release phenazopyridine 200 mg tablet 200 mg PO TID PRN 08/24/21 09/24/21 History prochlorperazine maleate 10 mg 10 mg PO TID PRN 08/24/21 09/24/21 History tablet pseudoephedrine HCl 120 mg 120 mg PO Q12H 08/24/21 09/24/21 History tablet,extended release (Sudafed 12 Hour) scopolamine base 1 mg over 3 days 1 patch transdermal Q3D PRN 08/24/21 09/24/21 History transdermal patch spironolactone 25 mg tablet 25 mg PO BID 08/24/21 09/24/21 History warfarin 3 mg tablet See Rx Instructions PO QDAY 08/24/21 09/24/21 History Allergies Allergy/AdvReac Type Severity Reaction Status Date / Time bee venom protein (honey bee) Allergy Severe Verified 09/24/21 13:00 clavulanic acid Allergy Severe Verified 09/24/21 13:00 diphtheria,pertussis Allergy Severe Swelling Verified 09/24/21 13:00 (acellular),te [From Boostrix Tdap] Penicillins Allergy Severe Hives Verified 09/24/21 13:00 Sulfa (Sulfonamide Allergy Severe N/V Verified 09/24/21 13:00 Antibiotics) latex Allergy Intermediate Verified 09/24/21 13:00 cat dander Allergy Mild Hives Verified 09/24/21 13:00 codeine Allergy Mild Vomiting Verified 09/24/21 13:00 dog dander Allergy Mild Hives Verified 09/24/21 13:00 strawberry Allergy Mild numbness Verified 09/24/21 13:00 lips and tongue Dust Allergy Severe Wheezing Uncoded 09/24/21 13:00 Tetanus toxoid Allergy Severe major Uncoded 09/24/21 13:00 swelling Tobacco Allergy Intermediate sinusitis Uncoded 09/24/21 13:00 Birds Allergy Mild Hives Uncoded 09/24/21 13:00 tropical fruits Allergy Mild hives, Uncoded 09/24/21 13:00 swelling Exam Narrative: Exam Narrative: Moderate respiratory distress with tachypnea when I 1st see her. Otherwise in no acute distress. Alert, oriented to self, place, time, situation. Cooperative, friendly, articulate. Mood and affect are congruent. Hearing is preserved. Vision is also preserved. Midline nasal septum. Dry buccal mucosa. Dentition in fair repair. Mild icterus. No conjunctival injection. Pupils equally round and reactive to light and accommodation. Extraocular muscles intact. No jaundice. Does have areas of scattered ecchymosis on forearms and hands. No petechiae. No rashes. No cyanosis. Full neck. Neck is supple. Midline trachea. No obvious JVD, hepatojugular reflux, or carotid bruits. Does not have adenopathy in the pre or postauricular chains, anterior-posterior cervical chains, submandibular or submental fossa, supra or infraclavicular fossa, or axilla bilaterally. Lungs clear to auscultation, without wheezing, rhonchi, or rales. Chest wall excursions are full. Heart tones with regular rhythm, tachycardic, normal S1-S2, without murmur, gallop, or rub. PMI not laterally displaced. Abdomen is obese. Protuberant. Periumbilical hernia easily reducible. Active bowel sounds. Soft, nontender. Extremities without edema. Decreased pulses in upper and lower extremities but palpable. Independent with transfer, station, and gait. No tremor, asterixis, or ataxia. Moves slowly. Const: Vital Signs, click to edit/add: Vital Signs - 24 hr 11/07/21 15:49 11/07/21 18:49 11/07/21 19:00 Temperature 97.8 F 97.8 F Pulse Rate [Left P ulse Oximeter] Pulse Rate [Pulse Oximeter] 105 H 105 H Respiratory Rate 32 H 32 H Blood Pressure [Le ft Arm] Blood Pressure [Ri ght Upper Arm] 136/90 H 136/90 H 121/96 H Pulse Oximetry 100 100 Oxygen Delivery Me thod Room Air Room Air 11/07/21 19:30 11/07/21 20:28 Temperature 97.6 F Pulse Rate [Left P ulse Oximeter] 105 H Pulse Rate [Pulse Oximeter] Respiratory Rate 16 Blood Pressure [Le ft Arm] 159/97 H Blood Pressure [Ri ght Upper Arm] 150/86 H Pulse Oximetry 100 Oxygen Delivery Me thod Room Air Documenting provider has reviewed patient's vital signs: yes Hospitalist - H&P: Result Labs Labs: Short CBC 11/07/21 Range/Units 16:40 WBC 10.90 (4.50-11.00) K/uL Hgb 12.3 (12.0-16.0) gm/dL Hct 37.9 (33.0-51.0) % Plt Count 216 (140-440) K/uL BMP 11/07/21 16:40 Sodium 132 L Potassium 4.0 Chloride 100 Carbon Dioxide 11 L BUN 5 Creatinine 0.5 Glucose 111 Calcium 8.9 Liver Function 11/07/21 Range/Units 16:40 Total Bilirubin 2.3 H (0.1-1.5) mg/dL Direct Bilirubin 1.1 H (0.0-0.5) mg/dL AST 86 H (12-35) U/L ALT 47 H (4-35) U/L Alkaline Phosphatase 221 H (40-150) U/L Albumin 3.9 (3.3-5.0) g/dL Urine 11/07/21 Range/Units 16:09 Urine Color Yellow (Yellow) Urine Appearance Clear (Clear) Urine pH 6.0 (5.0-8.5) Ur Specific [place] >= 1.030 (1.000-1.030) Urine Protein 1+ A (Negative) Urine Glucose (UA) Negative (Negative) Imaging CT scan - abdomen: Attestation: I have reviewed the pertinent imaging results. Radiologist's impression: 1. Interval development of prominent ascites presumably related to chronic cirrhotic liver and portal hypertension. Moderate splenomegaly. Vascular congestion in the mesentery. 2. Chronic supraumbilical abdominal wall hernia. 3. Presumed dependent sludge in the gallbladder. Ultrasound recommended for better characterization. Intraluminal mass felt unlikely but not excluded. US - abdomen: Radiologist's impression: 1. Morphologic evidence of cirrhosis. Ascites 2. Irregular thickening of the gallbladder wall measuring up to 9 millimeters. Greater than 3 millimeters is considered abnormal. This is probably not related to acute cholecystitis and is probably related to chronic liver disease, hypoproteinemia and/or portal hypertension. 3. Nonmobile masslike thickening of the wall the gallbladder. This is nonmobile and does not appear to be vascularized at Doppler. This probably represents sludge rather than a true mass. Assessment and Plan Assessment and plan (1) Nausea & vomiting: Status: Acute Assessment and Plan: 1. Etiology not yet determined. 2. Differential diagnosis includes: PUD, gastroesophageal reflux, acute portal vein thrombosis (I doubt this without pain and with patient being hypoprothrombinemia), gastroparesis, increased pressure from increased ascites, eosinophilic gastroenteritis, functional nausea and vomiting, iatrogenic such as from recent course of doxycycline or recent course of nitrofurantoin, polypharmacy including from metformin and tramadol, multifactorial, etc. I doubt gallbladder disease is causing this. 3. Will check an upper GI fluoroscopy study to assess for gastroparesis in the lining of the upper gastrointestinal tract. 4. After we rehydrate, will consider intensifying the patient's diuresis regimen with furosemide and spironolactone in order to decrease the ascites. (2) Dehydration: Status: Acute Assessment and Plan: 1. Recheck her lactate as we continue with hydration efforts. 2. Administer another L of normal saline IV. 3. Maintenance normal saline 125 mL/hour IV overnight and consider stopping it in the morning.. 4. Monitor orthostatic blood pressures and pulses. 5. I doubt sepsis or spontaneous bacterial peritonitis. (3) Tachypnea on examination: Status: Acute Assessment and Plan: 1. Much improved with IV fluid administration. 2. Monitor vitals as well as venous blood gases. (4) Respiratory alkalosis: Status: Acute Assessment and Plan: 1. Tachypnea much improved with IV fluid administration. 2. Monitor symptoms. 3. Monitor venous blood gases (5) Tingling of both upper extremities: Status: Acute Assessment and Plan: 1. Due to respiratory alkalosis. (6) Situational anxiety: Status: Acute Assessment and Plan: 1. She is understandably anxious about her situation and circumstance. (7) Acute liver failure: Status: Acute Assessment and Plan: 1. It is unclear she has acute on chronic or simply chronic liver failure. Certainly has a known GOLDSMITH. Also recently took nitrofurantoin which can cause idiopathic hepatic failure. Also recently took a course of doxycycline. Given that she is chronically anticoagulated I doubt that she has more portal vein thrombosis but is certainly possible. 2. Monitor liver function studies. 3. 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 (8) Nonalcoholic steatohepatitis: Status: Acute (9) Elevated INR: Status: Acute Assessment and Plan: 1. Hold her warfarin. 2. Vitamin K 5 mg IV. 3. Daily INRs. (10) Chronic anticoagulation: Problem comment: INR range 2.5-3.5 Status: Acute (11) Ascites: Status: Acute Assessment and Plan: 1. Given her paucity of abdominal pain, fever, rigors, I am not convinced that we need to check her for spontaneous bacterial peritonitis. 2. Additionally her hypoprothrombinemia state precludes us from being able to safely do a diagnostic paracentesis at this time. (12) Portal hypertension with esophageal varices: Status: Acute (13) Obesity: Status: Acute (14) Protein-calorie malnutrition, moderate: Status: Acute Assessment and Plan: 1. Will ask our dietitian to see the patient in consultation. 2. Will initiate a 2 g sodium diet. (15) Constipation: Status: Acute Assessment and Plan: 1. Will initiate lactulose. Plan 1. I reviewed my impressions, plans, recommendations with the patient. Answered her questions to her satisfaction. She asses to proceed as specified.
[2021-11-07] MEDS: 0.9 % SODIUM CHLORIDE 1000 ml 1,000 ML 125 ML IV (21:05)
[2021-11-07] MEDS: PHYTONADIONE (VIT K1) 5 MG in 0.9 % SODIUM CHLORIDE 50 ml 50 ML 100 MG IVPB (21:19)
[2021-11-07] MEDS: SCOPOLAMINE 1 MG/3 DAY PATCH 1 PATCH TRANSDERMA (21:20)
[2021-11-07] MEDS: OMEPRAZOLE 20 MG CAPSULE DR PO (21:56)
[2021-11-07] MEDS: TRAZODONE HCL 50 MG TABLET PO (21:57)
[2021-11-07] MEDS: LACTULOSE 20 GM/30 ML PO (21:57)
[2021-11-07] MEDS: FLUTICASONE PROPIONATE NASAL 2 SPRAY NOSTRIL-B (22:28)
[2021-11-07] MEDS: PROCHLORPERAZINE 10 MG TABLET PO (22:37)
[2021-11-08] VITALS (7 sets, daily range): BP systolic 138–145; BP diastolic 82–87; PULSE 99–106; RESP 16–20; TEMP 36.6–37; O2SAT 97–100
[2021-11-08] MEDS: LORazepam 2 MG/ML inj 1 MG IVP ×2 (00:57→16:03)
[2021-11-08] MEDS: OMEPRAZOLE 20 MG CAPSULE DR PO ×2 (05:59→16:03)
[2021-11-08] MEDS: 0.9 % SODIUM CHLORIDE 1000 ml 1,000 ML 125 ML IV ×2 (06:01→19:56)
[2021-11-08 06:49] LABS: HCO3 VBG 14 mmol/L (21-28); PCO2 VBG 23 mmHG (40-50); PO2 VBG 58.6 mmHG (25-47); pH VBG 7.387 (7.32-7.43)
[2021-11-08 06:50] LABS: Lactate* 5.5 mmol/L (0.5-1.9)
[2021-11-08 07:49] LABS: INR 2.95 (0.91-1.10)
--- NOTE | 2021-11-08 07:50 | PC.NURSE ---
END OF SHIFT NOTE: PT WITH x2 SMALL AMOUNT EMESIS WITH BLOOD. RELIEF FROM COMPAZINE. MOVES INDEPENDENTLY IN ROOM. PT REPORTS THAT ADMINISTRATION OF ZOFRAN INCREASES NAUSEA. PT DID NOT SLEEP AT ALL DURING THE NIGHT; PT SUFFERS FROM INSOMNIA. TACHYCARDIC [id number]. PT DENIES PAIN.
--- NOTE | 2021-11-08 08:00 | CRLHL7_ITS ---
For Patients: As a result of the Century Cures Act, medical imaging exams and procedure reports are released immediately into your electronic medical record. You may view this report before your referring provider. If you have questions, please contact your health care provider. Technique: Single contrast upper GI and small-bowel follow-through performed with thick and thin barium. Fluoroscopy time 27 seconds. Indication: Nausea and vomiting Comparison: CT 11/07/2021 Findings: Swallowing mechanism: Normal. Esophageal motility: Normal. Gastroesophageal reflux: None. Hernia: None. Stomach: Unremarkable. Small bowel: Normal. No evidence of inflammation. No obstruction. Transit time 3 hours. Impression: Normal upper GI/small bowel follow-through. Dictated by Mitchell Li MD @ 11/08/2021 3:42:48 PM (Electronically Signed)
[2021-11-08 08:01] LABS: Hemoglobin A1C* 4.64 % (0-5.6)
[2021-11-08 08:10] LABS: Iron* 216 ug/dL (37-170)
--- NOTE | 2021-11-08 08:19 | P.IMPN_ITS ---
Progress Note: A&P Assessment and plan (1) Acute liver failure: Problem details: Baseline bilirubin 1.4 Status: Acute Assessment and Plan: Ddx: iatrogenic (treated with Macrobid for UTI on 09/20/21), infectious, progression of chronic disease. Bilirubin 3.4 today, lactate remains elevated as well. Monica remains afebrile with a normal WBC count. Noted to have thickened gallbladder wall on abdominal ultrasound - likely related to chronic liver disease. General surgery has been consulted on patient to consider paracentesis given patient's risk for SBP. Empiric antibiotics not indicated at this time. Patient appears intravascularly dry with elevated lactate; will give another bolus of IVFs this morning, follow lactate, monitor fluid balance closely. On both Lasix and Spironolactone as an outpatient, will restart her Spironolactone this evening. Will require close outpatient follow-up for ongoing management. If worsening hematemesis, acute Hgb change, or change in status, would need transfer to tertiary care facility with GI capabilities. (2) Nonalcoholic steatohepatitis: Status: Acute (3) Portal hypertension with esophageal varices: Problem details: Last seen as an outpatient by Dr. Black at [facility] 12/17 - follow-up upper endoscopy with consideration of rebanding of varices recommended at that time; patient overdue for f/u with [facility]. Status: Acute (4) Nausea & vomiting: Status: Acute Assessment and Plan: Present for many weeks; etiology unclear. Upper GI with small-bowel follow- through completed this morning. Continue BID PPI. (5) Dehydration: Status: Acute Assessment and Plan: See #1 Above (6) Respiratory alkalosis: Status: Acute Assessment and Plan: Source unclear. RR has improved since admission. (7) Elevated INR: Problem details: Given 5 mg of IV vitamin K on 11/07. Status: Acute Assessment and Plan: INR down to 2.95 today. (8) Chronic anticoagulation: Problem details: INR range 2.5-3.5 Status: Acute (9) Ascites: Status: Acute Assessment and Plan: See #1 above (10) Protein-calorie malnutrition, moderate: Status: Acute Assessment and Plan: Nutrition referral has been placed. (11) Murmur: Status: Acute Assessment and Plan: TTE ordered for 11/08. Plan Per above. Appreciate input from Dr. Coronado of General Surgery. Patient lives independently, plans to go home when clinically stable. Time Spent With Patient Total time spent: 45 minutes, including review of outpatient records, discussion of care with specialty team, updating patient and parents at bedside. Subjective Date Seen: 11/08/21 Interval history: No acute events overnight. Bree continues to have intermittent nausea and vomiting since admission; intermittent hematemesis has been noted by both patient and nursing staff. She has remained afebrile. Her heart rate is in the low 100 range (baseline outpatient heart rate in the 90s per chart review). Exam Narrative: Exam Narrative: GEN: Alert and oriented, sitting comfortably in bed and answering questions appropriately HEENT: Normal external ears, EOMIs bilaterally CV: RRR, 3/6 systolic murmur heard best at left sternal border with radiation into left mid axillary line R: LCTA bilaterally without concerning wheezing, rales, or rhonchi, air movement adequate Abdomen: Positive fluid wave, mild discomfort with palpation of right upper quadrant Ext: wwp, no concerning edema Skin: Scattered bruising of extremities, most prominent over bilateral anterior lower extremities Neuro: Nonfocal, no resting tremor Psych: Appropriate Const: Vital Signs, click to edit/add: Vital Signs - 24 hr 11/07/21 15:49 11/07/21 18:49 11/07/21 19:00 Temperature 97.8 F 97.8 F Pulse Rate [Left P ulse Oximeter] Pulse Rate [Pulse Oximeter] 105 H 105 H Respiratory Rate 32 H 32 H Blood Pressure [Le ft Arm] Blood Pressure [Ri ght Arm] Blood Pressure [Ri ght Upper Arm] 136/90 H 136/90 H 121/96 H Pulse Oximetry 100 100 Oxygen Delivery Me thod Room Air Room Air 11/07/21 19:30 11/07/21 20:28 11/07/21 20:37 Temperature 97.6 F Pulse Rate [Left P ulse Oximeter] 105 H Pulse Rate [Pulse Oximeter] Respiratory Rate 16 18 Blood Pressure [Le ft Arm] 159/97 H Blood Pressure [Ri ght Arm] Blood Pressure [Ri ght Upper Arm] 150/86 H Pulse Oximetry 100 100 Oxygen Delivery Me thod Room Air Room Air 11/07/21 22:40 11/07/21 23:00 11/07/21 20:00 Temperature 98.0 F 97.6 F Pulse Rate [Left P ulse Oximeter] 104 H 104 H 105 H Pulse Rate [Pulse Oximeter] Respiratory Rate 18 18 16 Blood Pressure [Le ft Arm] 150/87 H 159/97 H Blood Pressure [Ri ght Arm] Blood Pressure [Ri ght Upper Arm] Pulse Oximetry 100 100 Oxygen Delivery Me thod Room Air Room Air 11/08/21 03:00 Temperature 98.5 F Pulse Rate [Left P ulse Oximeter] 106 H Pulse Rate [Pulse Oximeter] Respiratory Rate 18 Blood Pressure [Le ft Arm] Blood Pressure [Ri ght Arm] 138/82 Blood Pressure [Ri ght Upper Arm] Pulse Oximetry 100 Oxygen Delivery Me thod Room Air Labs Labs: Laboratory Results - last 24 hr 11/07/21 11/07/21 11/07/21 16:09 16:09 16:40 WBC 10.90 RBC 4.06 Hgb 12.3 Hct 37.9 MCV 93 MCH 30 MCHC 33 RDW Coeff of Kaleb 18.4 H Plt Count 216 Neut % (Auto) 81.9 H Lymph % (Auto) 7.5 L [place] % (Auto) 8.3 Eos % (Auto) 1.3 Baso % (Auto) 0.5 Neut # (Auto) 8.90 H Lymph # (Auto) 0.80 L [place] # (Auto) 0.90 Eos # (Auto) 0.14 Baso # (Auto) 0.05 Abs Immat Gran (auto) 0.05 INR APTT VBG pH VBG pCO2 VBG pO2 VBG HCO3 Sodium Potassium Chloride Carbon Dioxide BUN Creatinine Estimated Creat Clear Estimated GFR Glucose Hemoglobin A1c Lactate Calcium Iron Total Bilirubin Direct Bilirubin AST ALT Alkaline Phosphatase C-Reactive Protein Total Protein Albumin Lipase Urine Color Yellow Urine Appearance Clear Urine pH 6.0 Ur Specific [place] >= 1.030 Urine Protein 1+ A Urine Glucose (UA) Negative Urine Ketones 2+ A Urine Blood Trace-intact A Urine Nitrite Negative Urine Bilirubin 2+ A Urine Urobilinogen 1.0 Ur Leukocyte Esterase Negative Urine RBC 2-5 A Urine WBC 0-2 Ur Squamous Epith Cells Few Urine Bacteria Few A Urine Opiates Screen Negative Ur Oxycodone Screen Negative Urine Methadone Screen Negative Ur Propoxyphene Screen Negative Ur Barbiturates Screen Negative U Tricyclic Antidepress POSITIVE A* Ur Phencyclidine Scrn Negative Ur Amphetamines Screen Negative U Methamphetamines Scrn Negative U Benzodiazepines Scrn Negative Urine Cocaine Screen Negative U Marijuana (THC) Screen Negative Ur Drug Screen Comment See Note SARS-CoV-2 (PCR) Influenza Type A (PCR) Influenza Type B (PCR) RSV (PCR) 11/07/21 11/07/21 11/07/21 16:40 16:40 17:43 WBC RBC Hgb Hct MCV MCH MCHC RDW Coeff of Kaleb Plt Count Neut % (Auto) Lymph % (Auto) [place] % (Auto) Eos % (Auto) Baso % (Auto) Neut # (Auto) Lymph # (Auto) [place] # (Auto) Eos # (Auto) Baso # (Auto) Abs Immat Gran (auto) INR 15.27 H* APTT VBG pH VBG pCO2 VBG pO2 VBG HCO3 Sodium 132 L Potassium 4.0 Chloride 100 Carbon Dioxide 11 L BUN 5 Creatinine 0.5 Estimated Creat Clear 117.54 Estimated GFR 118 Glucose 111 Hemoglobin A1c Lactate 6.9 H* Calcium 8.9 Iron Total Bilirubin 2.3 H Direct Bilirubin 1.1 H AST 86 H ALT 47 H Alkaline Phosphatase 221 H C-Reactive Protein 2.8 H Total Protein 8.7 H Albumin 3.9 Lipase 246 Urine Color Urine Appearance Urine pH Ur Specific [place] Urine Protein Urine Glucose (UA) Urine Ketones Urine Blood Urine Nitrite Urine Bilirubin Urine Urobilinogen Ur Leukocyte Esterase Urine RBC Urine WBC Ur Squamous Epith Cells Urine Bacteria Urine Opiates Screen Ur Oxycodone Screen Urine Methadone Screen Ur Propoxyphene Screen Ur Barbiturates Screen U Tricyclic Antidepress Ur Phencyclidine Scrn Ur Amphetamines Screen U Methamphetamines Scrn U Benzodiazepines Scrn Urine Cocaine Screen U Marijuana (THC) Screen Ur Drug Screen Comment SARS-CoV-2 (PCR) Influenza Type A (PCR) Influenza Type B (PCR) RSV (PCR) 11/07/21 11/07/21 11/07/21 17:43 19:03 19:07 WBC RBC Hgb Hct MCV MCH MCHC RDW Coeff of Kaleb Plt Count Neut % (Auto) Lymph % (Auto) [place] % (Auto) Eos % (Auto) Baso % (Auto) Neut # (Auto) Lymph # (Auto) [place] # (Auto) Eos # (Auto) Baso # (Auto) Abs Immat Gran (auto) INR 14.79 H* APTT 105 H* VBG pH 7.410 VBG pCO2 25 L VBG pO2 47.6 H VBG HCO3 16 L Sodium Potassium Chloride Carbon Dioxide BUN Creatinine Estimated Creat Clear Estimated GFR Glucose Hemoglobin A1c Lactate 5.8 H* Calcium Iron Total Bilirubin Direct Bilirubin AST ALT Alkaline Phosphatase C-Reactive Protein Total Protein Albumin Lipase Urine Color Urine Appearance Urine pH Ur Specific [place] Urine Protein Urine Glucose (UA) Urine Ketones Urine Blood Urine Nitrite Urine Bilirubin Urine Urobilinogen Ur Leukocyte Esterase Urine RBC Urine WBC Ur Squamous Epith Cells Urine Bacteria Urine Opiates Screen Ur Oxycodone Screen Urine Methadone Screen Ur Propoxyphene Screen Ur Barbiturates Screen U Tricyclic Antidepress Ur Phencyclidine Scrn Ur Amphetamines Screen U Methamphetamines Scrn U Benzodiazepines Scrn Urine Cocaine Screen U Marijuana (THC) Screen Ur Drug Screen Comment SARS-CoV-2 (PCR) Negative SARS-CoV-2 Influenza Type A (PCR) Negative PCR FLU A Influenza Type B (PCR) Negative PCR FLU B RSV (PCR) Negative PCR RSV 11/08/21 11/08/21 11/08/21 06:25 06:25 06:25 WBC RBC Hgb Hct MCV MCH MCHC RDW Coeff of Kaleb Plt Count Neut % (Auto) Lymph % (Auto) [place] % (Auto) Eos % (Auto) Baso % (Auto) Neut # (Auto) Lymph # (Auto) [place] # (Auto) Eos # (Auto) Baso # (Auto) Abs Immat Gran (auto) INR 2.95 H APTT VBG pH 7.387 VBG pCO2 23 L VBG pO2 58.6 H VBG HCO3 14 L Sodium Potassium Chloride Carbon Dioxide BUN Creatinine Estimated Creat Clear Estimated GFR Glucose Hemoglobin A1c Lactate 5.5 H* Calcium Iron 216 H Total Bilirubin Direct Bilirubin AST ALT Alkaline Phosphatase C-Reactive Protein Total Protein Albumin Lipase Urine Color Urine Appearance Urine pH Ur Specific [place] Urine Protein Urine Glucose (UA) Urine Ketones Urine Blood Urine Nitrite Urine Bilirubin Urine Urobilinogen Ur Leukocyte Esterase Urine RBC Urine WBC Ur Squamous Epith Cells Urine Bacteria Urine Opiates Screen Ur Oxycodone Screen Urine Methadone Screen Ur Propoxyphene Screen Ur Barbiturates Screen U Tricyclic Antidepress Ur Phencyclidine Scrn Ur Amphetamines Screen U Methamphetamines Scrn U Benzodiazepines Scrn Urine Cocaine Screen U Marijuana (THC) Screen Ur Drug Screen Comment SARS-CoV-2 (PCR) Influenza Type A (PCR) Influenza Type B (PCR) RSV (PCR) 11/08/21 06:25 WBC RBC Hgb Hct MCV MCH MCHC RDW Coeff of Kaleb Plt Count Neut % (Auto) Lymph % (Auto) [place] % (Auto) Eos % (Auto) Baso % (Auto) Neut # (Auto) Lymph # (Auto) [place] # (Auto) Eos # (Auto) Baso # (Auto) Abs Immat Gran (auto) INR APTT VBG pH VBG pCO2 VBG pO2 VBG HCO3 Sodium Potassium Chloride Carbon Dioxide BUN Creatinine Estimated Creat Clear Estimated GFR Glucose Hemoglobin A1c 4.64 Lactate Calcium Iron Total Bilirubin Direct Bilirubin AST ALT Alkaline Phosphatase C-Reactive Protein Total Protein Albumin Lipase Urine Color Urine Appearance Urine pH Ur Specific [place] Urine Protein Urine Glucose (UA) Urine Ketones Urine Blood Urine Nitrite Urine Bilirubin Urine Urobilinogen Ur Leukocyte Esterase Urine RBC Urine WBC Ur Squamous Epith Cells Urine Bacteria Urine Opiates Screen Ur Oxycodone Screen Urine Methadone Screen Ur Propoxyphene Screen Ur Barbiturates Screen U Tricyclic Antidepress Ur Phencyclidine Scrn Ur Amphetamines Screen U Methamphetamines Scrn U Benzodiazepines Scrn Urine Cocaine Screen U Marijuana (THC) Screen Ur Drug Screen Comment SARS-CoV-2 (PCR) Influenza Type A (PCR) Influenza Type B (PCR) RSV (PCR)
[2021-11-08 09:06] LABS: Albumin* 3.6 g/dL (3.3-5.0); Chloride* 108 mmol/L (96-114); Sodium* 133 mmol/L (135-149)
[2021-11-08 09:07] LABS: Potassium* 4.1 mmol/L (3.6-5.1)
[2021-11-08 09:08] LABS: Creatinine* 0.4 mg/dL (0.5-1.5); Est. Creatinine Clearance* 146.92; Estimated Glomerular Filt Rate 124 ml/min
[2021-11-08 09:09] LABS: Alkaline Phosphatase* 186 U/L (40-150); Aspartate Amino Transferase* 74 U/L (12-35); Bilirubin Direct* 1.4 mg/dL (0.0-0.5); Bilirubin Total* 3.4 mg/dL (0.1-1.5); Blood Urea Nitrogen* 4 mg/dL (5-24); Carbon Dioxide* 10 mmol/L (20-32); Lipase* 257 U/L (23-300); Total Protein* 8.1 g/dL (6.0-8.3)
[2021-11-08 09:10] LABS: Alanine Aminotransferase* 59 U/L (4-35); Calcium* 8.6 mg/dL (8.4-10.6); Cholesterol* 128 mg/dL (90-199); Gamma Glutamyl Transpeptidase* 220 U/L (8-55); Glucose* 97 mg/dL (60-115)
[2021-11-08 09:12] LABS: C Reactive Protein* 3.2 mg/dL (0.5-1.0)
[2021-11-08 09:22] LABS: Troponin I* 0.01 ng/mL (0.01-0.04)
[2021-11-08 09:32] LABS: Hematocrit 48.2 % (33.0-51.0); Hemoglobin* 15.8 gm/dL (12.0-16.0); Mean Corpuscular HGB Conc 33 gm/dL (32-36); Mean Corpuscular Hemoglobin 30 pg (26-34); Mean Corpuscular Volume 92 fL (80-100); Platelet Count* 124 K/uL (140-440); Red Blood Count 5.26 m/uL (4.00-5.20); White Blood Count* 10.17 K/uL (4.50-11.00)
[2021-11-08 09:33] LABS: Slide Review Reflex No
[2021-11-08] MEDS: LACTATED RINGERS 1000 ML 500 ML 250 ML IV (09:50)
[2021-11-08] MEDS: FLUTICASONE PROPIONATE NASAL 2 SPRAY NOSTRIL-B (10:43)
[2021-11-08] MEDS: PROCHLORPERAZINE 10 MG TABLET PO (10:44)
[2021-11-08] MEDS: LACTULOSE 20 GM/30 ML PO ×2 (10:44→21:54)
[2021-11-08] MEDS: ONDANSETRON ODT 4 MG TAB PO ×2 (12:03→21:59)
--- NOTE | 2021-11-08 13:09 | P.GSCN_ITS ---
History of Present Illness Consult details Date Seen: 11/08/21 Consult date: 11/08/21 Narrative: The patient is a 46-year-old female who presented to the emergency department yesterday with several weeks of nausea and vomiting. This is accompanied by mild abdominal pain. She states that she has had some hematemesis with this. She ate lunch and vomited after this as well. She has not had a bowel movement in 1 week. She has a history of liver disease and previously was seen gastroenterology but has not seen anybody in approximately 6 years. She previously had an upper endoscopy with band ligation of varices as well as colonoscopy in 2014 at [facility]. She did see Dr. Black 1 year ago, however she was referred to a tertiary GI Center as banding is not performed in [place]. She however did not follow up because she did not want to drive to the [facility]. She states that her abdominal distension has been worsening over the past few weeks. No shortness of breath or chest pain. She has been on Coumadin for factor 5 Leiden mutation and is on warfarin. Presentation her INR was 15. I was asked to see this patient for consideration of paracentesis as well as to comment on her finding of gallbladder wall thickening on ultrasound. She thinks that she has had abdominal surgery before but is not sure what was done. It was an exploration. She thinks it was done at [facility]. Review of Systems Status of ROS: Reports: 10 or more systems reviewed and unremarkable except as noted in History and below [facility] Medical History (Updated 11/08/21 @ 13:18 by Arabella Coronado MD) Adult acne Asthma Chronic anticoagulation Esophageal varices Factor 5 Leiden mutation, heterozygous Foot injury Insomnia Nonalcoholic steatohepatitis Obesity Polycystic ovarian syndrome Polycystic ovaries (10/24/08) Portal hypertension with esophageal varices Portal vein thrombosis Shoulder injury Traumatic brain injury UTI (urinary tract infection) Surgical History History of right breast biopsy History of third molar tooth extraction (10/24/08) History of tonsillectomy and adenoidectomy (10/24/08) Hx of nasal septoplasty S/P breast biopsy S/P foot surgery S/P tonsillectomy and adenoidectomy Status post surgery of both feet Family History Other Diabetes Social History Highest level of school completed/degree received: Associate degree: occupational, technical, vocational program Smoking Status: Never smoker Do you use any of these nicotine containing products: None How often do you have a drink containing alcohol: monthly or less AUDIT-C Alcohol total score: 1 Non-prescribed substance use: denies use Caffeine: Yes (soda in AM) Meds Home Medications and Allergies Home Medications Medication Instructions Recorded Confirmed Type albuterol sulfate 90 mcg/actuation 2 inh inhalation Q4H PRN 08/24/21 11/08/21 History breath activated powder inhaler,sensor (Proair Digihaler) diphenhydramine 25 1 tab PO HS PRN 08/24/21 11/08/21 History mg-acetaminophen 500 mg tablet (Tylenol PM Extra Strength) fluticasone propionate 50 2 spray intranasal QDAY 08/24/21 11/08/21 History mcg/actuation nasal spray,suspension (Allergy Relief (fluticasone)) furosemide 20 mg tablet 20 mg PO DAILY 08/24/21 11/08/21 History loratadine 10 mg tablet (Allergy 10 mg PO QDAY 08/24/21 11/08/21 History Relief (loratadine)) metformin 500 mg tablet 1,000 mg PO DAILY 08/24/21 11/08/21 History omeprazole 20 mg capsule,delayed 20 mg PO BID 08/24/21 11/08/21 History release prochlorperazine maleate 10 mg 10 mg PO TID PRN 08/24/21 11/08/21 History tablet pseudoephedrine HCl 120 mg 120 mg PO DAILY 08/24/21 11/08/21 History tablet,extended release (Sudafed 12 Hour) spironolactone 25 mg tablet 25 mg PO BID 08/24/21 11/08/21 History warfarin 3 mg tablet See Rx Instructions PO QDAY 08/24/21 11/08/21 History gabapentin 300 mg capsule 900 mg PO BID pain 11/08/21 11/08/21 History trazodone 50 mg tablet 50 mg PO HS 11/08/21 11/08/21 History Allergies Allergy/AdvReac Type Severity Reaction Status Date / Time bee venom protein (honey bee) Allergy Severe Verified 09/24/21 13:00 clavulanic acid Allergy Severe Verified 09/24/21 13:00 diphtheria,pertussis Allergy Severe Swelling Verified 09/24/21 13:00 (acellular),te [From Boostrix Tdap] Penicillins Allergy Severe Hives Verified 09/24/21 13:00 Sulfa (Sulfonamide Allergy Severe N/V Verified 09/24/21 13:00 Antibiotics) latex Allergy Intermediate Verified 09/24/21 13:00 cat dander Allergy Mild Hives Verified 09/24/21 13:00 codeine Allergy Mild Vomiting Verified 09/24/21 13:00 dog dander Allergy Mild Hives Verified 09/24/21 13:00 strawberry Allergy Mild numbness Verified 09/24/21 13:00 lips and tongue Dust Allergy Severe Wheezing Uncoded 09/24/21 13:00 Tetanus toxoid Allergy Severe major Uncoded 09/24/21 13:00 swelling Tobacco Allergy Intermediate sinusitis Uncoded 09/24/21 13:00 Birds Allergy Mild Hives Uncoded 09/24/21 13:00 tropical fruits Allergy Mild hives, Uncoded 09/24/21 13:00 swelling Exam Narrative: Exam Narrative: General appearance: Alert, cooperative, and in no distress Eyes: PERRLA, eye lids clear, and sclera white HENT Head: Normocephalic Pulmonary: Breathing nonlabored on room air Cardiovascular Heart: Mildly tachycardic Extremities: warm and well perfused Gastrointestinal Abdominal: Protuberant. Nontender to palpation. There is an supraumbilic al scar. She also has a supraumbilical hernia which is reducible. Abdomen is somewhat distended but still soft. Musculoskeletal: Extremities: Upper: Both upper extremities have normal joint range of motion and intact strength. Lower: Both lower extremities have normal joint range of motion and intact strength. Skin: Normal skin color, texture, and turgor. No rashes or lesions. Neurologic: No focal deficits Psychiatric: Alert, oriented, cooperative, normal affect. Const: Vital Signs, click to edit/add: Vital Signs - 24 hr 11/07/21 15:49 11/07/21 18:49 11/07/21 19:00 Temperature 97.8 F 97.8 F Pulse Rate [Left P ulse Oximeter] Pulse Rate [Pulse Oximeter] 105 H 105 H Respiratory Rate 32 H 32 H Blood Pressure [Le ft Arm] Blood Pressure [Ri ght Arm] Blood Pressure [Ri ght Upper Arm] 136/90 H 136/90 H 121/96 H Pulse Oximetry 100 100 Oxygen Delivery Mo thod Room Air Room Air 11/07/21 19:30 11/07/21 20:28 11/07/21 20:37 Temperature 97.6 F Pulse Rate [Left P ulse Oximeter] 105 H Pulse Rate [Pulse Oximeter] Respiratory Rate 16 18 Blood Pressure [Le ft Arm] 159/97 H Blood Pressure [Ri ght Arm] Blood Pressure [Ri ght Upper Arm] 150/86 H Pulse Oximetry 100 100 Oxygen Delivery [place] Room Air Room Air 11/07/21 22:40 11/07/21 23:00 11/07/21 20:00 Temperature 98.0 F 97.6 F Pulse Rate [Left P ulse Oximeter] 104 H 104 H 105 H Pulse Rate [Pulse Oximeter] Respiratory Rate 18 18 16 Blood Pressure [Le ft Arm] 150/87 H 159/97 H Blood Pressure [Ri ght Arm] Blood Pressure [Ri ght Upper Arm] Pulse Oximetry 100 100 Oxygen Delivery [place] Room Air Room Air 11/08/21 03:00 Temperature 98.5 F Pulse Rate [Left P ulse Oximeter] 106 H Pulse Rate [Pulse Oximeter] Respiratory Rate 18 Blood Pressure [Le ft Arm] Blood Pressure [Ri ght Arm] 138/82 Blood Pressure [Ri ght Upper Arm] Pulse Oximetry 100 Oxygen Delivery Mo thod Room Air Results Labs Labs: Abnormal lab results 11/07/21 11/07/21 11/07/21 Range/Units 16:09 16:09 16:40 RBC (4.00-5.20) m/uL RDW Coeff of Kaleb 18.4 H (11.5-15.5) % Plt Count (140-440) K/uL Neut % (Auto) 81.9 H (42.0-72.0) % Lymph % (Auto) 7.5 L (20-44) % Neut # (Auto) 8.90 H (1.7-7.0) K/uL Lymph # (Auto) 0.80 L (0.90-2.90) K/uL INR (0.91-1.10) APTT (23-33) Seconds VBG pCO2 (40-50) mmHG VBG pO2 (25-47) mmHG VBG HCO3 (21-28) mmol/L Sodium (135-149) mmol/L Carbon Dioxide (20-32) mmol/L BUN (5-24) mg/dL Creatinine (0.5-1.5) mg/dL Lactate (0.5-1.9) mmol/L Iron (37-170) ug/dL Total Bilirubin (0.1-1.5) mg/dL Direct Bilirubin (0.0-0.5) mg/dL GGT (8-55) U/L AST (12-35) U/L ALT (4-35) U/L Alkaline Phosphatase (40-150) U/L C-Reactive Protein (0.5-1.0) mg/dL Total Protein (6.0-8.3) g/dL Urine Protein 1+ A (Negative) Urine Ketones 2+ A (Negative) Urine Blood Trace-intact A (Negative) Urine Bilirubin 2+ A (Negative) Urine RBC 2-5 A (0-2) Urine Bacteria Few A (None) U Tricyclic Antidepress POSITIVE A* (Negative) 11/07/21 11/07/21 11/07/21 Range/Units 16:40 16:40 17:43 RBC (4.00-5.20) m/uL RDW Coeff of Kaleb (11.5-15.5) % Plt Count (140-440) K/uL Neut % (Auto) (42.0-72.0) % Lymph % (Auto) (20-44) % Neut # (Auto) (1.7-7.0) K/uL Lymph # (Auto) (0.90-2.90) K/uL INR 15.27 H* (0.91-1.10) APTT (23-33) Seconds VBG pCO2 (40-50) mmHG VBG pO2 (25-47) mmHG VBG HCO3 (21-28) mmol/L Sodium 132 L (135-149) mmol/L Carbon Dioxide 11 L (20-32) mmol/L BUN (5-24) mg/dL Creatinine (0.5-1.5) mg/dL Lactate 6.9 H* (0.5-1.9) mmol/L Iron (37-170) ug/dL Total Bilirubin 2.3 H (0.1-1.5) mg/dL Direct Bilirubin 1.1 H (0.0-0.5) mg/dL GGT (8-55) U/L AST 86 H (12-35) U/L ALT 47 H (4-35) U/L Alkaline Phosphatase 221 H (40-150) U/L C-Reactive Protein 2.8 H (0.5-1.0) mg/dL Total Protein 8.7 H (6.0-8.3) g/dL Urine Protein (Negative) Urine Ketones (Negative) Urine Blood (Negative) Urine Bilirubin (Negative) Urine RBC (0-2) Urine Bacteria (None) U Tricyclic Antidepress (Negative) 11/07/21 11/07/21 11/08/21 Range/Units 17:43 19:03 06:25 RBC (4.00-5.20) m/uL RDW Coeff of Kaleb (11.5-15.5) % Plt Count (140-440) K/uL Neut % (Auto) (42.0-72.0) % Lymph % (Auto) (20-44) % Neut # (Auto) (1.7-7.0) K/uL Lymph # (Auto) (0.90-2.90) K/uL INR 14.79 H* 2.95 H (0.91-1.10) APTT 105 H* (23-33) Seconds VBG pCO2 25 L (40-50) mmHG VBG pO2 47.6 H (25-47) mmHG VBG HCO3 16 L (21-28) mmol/L Sodium (135-149) mmol/L Carbon Dioxide (20-32) mmol/L BUN (5-24) mg/dL Creatinine (0.5-1.5) mg/dL Lactate 5.8 H* (0.5-1.9) mmol/L Iron (37-170) ug/dL Total Bilirubin (0.1-1.5) mg/dL Direct Bilirubin (0.0-0.5) mg/dL GGT (8-55) U/L AST (12-35) U/L ALT (4-35) U/L Alkaline Phosphatase (40-150) U/L C-Reactive Protein (0.5-1.0) mg/dL Total Protein (6.0-8.3) g/dL Urine Protein (Negative) Urine Ketones (Negative) Urine Blood (Negative) Urine Bilirubin (Negative) Urine RBC (0-2) Urine Bacteria (None) U Tricyclic Antidepress (Negative) 11/08/21 11/08/21 11/08/21 Range/Units 06:25 06:25 06:25 RBC 5.26 H (4.00-5.20) m/uL RDW Coeff of Kaleb (11.5-15.5) % Plt Count 124 L (140-440) K/uL Neut % (Auto) (42.0-72.0) % Lymph % (Auto) (20-44) % Neut # (Auto) (1.7-7.0) K/uL Lymph # (Auto) (0.90-2.90) K/uL INR (0.91-1.10) APTT (23-33) Seconds VBG pCO2 (40-50) mmHG VBG pO2 (25-47) mmHG VBG HCO3 (21-28) mmol/L Sodium 133 L (135-149) mmol/L Carbon Dioxide 10 L (20-32) mmol/L BUN 4 L (5-24) mg/dL Creatinine 0.4 L (0.5-1.5) mg/dL Lactate (0.5-1.9) mmol/L Iron 216 H (37-170) ug/dL Total Bilirubin 3.4 H (0.1-1.5) mg/dL Direct Bilirubin 1.4 H (0.0-0.5) mg/dL GGT 220 H (8-55) U/L AST 74 H (12-35) U/L ALT 59 H (4-35) U/L Alkaline Phosphatase 186 H (40-150) U/L C-Reactive Protein 3.2 H (0.5-1.0) mg/dL Total Protein (6.0-8.3) g/dL Urine Protein (Negative) Urine Ketones (Negative) Urine Blood (Negative) Urine Bilirubin (Negative) Urine RBC (0-2) Urine Bacteria (None) U Tricyclic Antidepress (Negative) 11/08/21 Range/Units 06:25 RBC (4.00-5.20) m/uL RDW Coeff of Kaleb (11.5-15.5) % Plt Count (140-440) K/uL Neut % (Auto) (42.0-72.0) % Lymph % (Auto) (20-44) % Neut # (Auto) (1.7-7.0) K/uL Lymph # (Auto) (0.90-2.90) K/uL INR (0.91-1.10) APTT (23-33) Seconds VBG pCO2 23 L (40-50) mmHG VBG pO2 58.6 H (25-47) mmHG VBG HCO3 14 L (21-28) mmol/L Sodium (135-149) mmol/L Carbon Dioxide (20-32) mmol/L BUN (5-24) mg/dL Creatinine (0.5-1.5) mg/dL Lactate 5.5 H* (0.5-1.9) mmol/L Iron (37-170) ug/dL Total Bilirubin (0.1-1.5) mg/dL Direct Bilirubin (0.0-0.5) mg/dL GGT (8-55) U/L AST (12-35) U/L ALT (4-35) U/L Alkaline Phosphatase (40-150) U/L C-Reactive Protein (0.5-1.0) mg/dL Total Protein (6.0-8.3) g/dL Urine Protein (Negative) Urine Ketones (Negative) Urine Blood (Negative) Urine Bilirubin (Negative) Urine RBC (0-2) Urine Bacteria (None) U Tricyclic Antidepress (Negative) Diabetes panel 11/07/21 11/08/21 11/08/21 Range/Units 16:40 06:25 06:25 Sodium 132 L 133 L (135-149) mmol/L Potassium 4.0 4.1 (3.6-5.1) mmol/L Chloride 100 108 (96-114) mmol/L Carbon Dioxide 11 L 10 L (20-32) mmol/L BUN 5 4 L (5-24) mg/dL Creatinine 0.5 0.4 L (0.5-1.5) mg/dL Glucose 111 97 (60-115) mg/dL Hemoglobin A1c 4.64 (0-5.6) % Calcium 8.9 8.6 (8.4-10.6) mg/dL AST 86 H 74 H (12-35) U/L ALT 47 H 59 H (4-35) U/L Alkaline Phosphatase 221 H 186 H (40-150) U/L Total Protein 8.7 H 8.1 (6.0-8.3) g/dL Albumin 3.9 3.6 (3.3-5.0) g/dL Thyroid panel 11/08/21 Range/Units 06:25 TSH 3.150 (0.270-4.20) uIU/mL Calcium panel 11/07/21 11/08/21 Range/Units 16:40 06:25 Calcium 8.9 8.6 (8.4-10.6) mg/dL Phosphorus 3.0 (2.5-4.5) mg/dL Albumin 3.9 3.6 (3.3-5.0) g/dL Pituitary panel 11/07/21 11/08/21 11/08/21 Range/Units 16:40 06:25 06:25 Sodium 132 L 133 L (135-149) mmol/L Potassium 4.0 4.1 (3.6-5.1) mmol/L Chloride 100 108 (96-114) mmol/L Carbon Dioxide 11 L 10 L (20-32) mmol/L BUN 5 4 L (5-24) mg/dL Creatinine 0.5 0.4 L (0.5-1.5) mg/dL Glucose 111 97 (60-115) mg/dL Calcium 8.9 8.6 (8.4-10.6) mg/dL TSH 3.150 (0.270-4.20) uIU/mL Adrenal panel 11/07/21 11/08/21 Range/Units 16:40 06:25 Sodium 132 L 133 L (135-149) mmol/L Potassium 4.0 4.1 (3.6-5.1) mmol/L Chloride 100 108 (96-114) mmol/L Carbon Dioxide 11 L 10 L (20-32) mmol/L BUN 5 4 L (5-24) mg/dL Creatinine 0.5 0.4 L (0.5-1.5) mg/dL Glucose 111 97 (60-115) mg/dL Calcium 8.9 8.6 (8.4-10.6) mg/dL Total Bilirubin 2.3 H 3.4 H (0.1-1.5) mg/dL AST 86 H 74 H (12-35) U/L ALT 47 H 59 H (4-35) U/L Alkaline Phosphatase 221 H 186 H (40-150) U/L Total Protein 8.7 H 8.1 (6.0-8.3) g/dL Albumin 3.9 3.6 (3.3-5.0) g/dL All other labs normal. Imaging Abdomen CT scan report/results: image reviewed (Diagnostic Imaging Report Patient: Monica Haines LMR#: [id number]: 1975Acct:[id number]: EDService Date: 11/07/21Attending Dr: Ordering Physician: Lakesha Ventura MD Date of Service: 11/07/21 Procedure(s): CT abdomen pelvis w con Accession Number(s): [id number] cc: Lakesha Ventura ) Abdominal ultrasound report/results: image reviewed ( Diagnostic Imaging Report Patient: Monica Haines LMR#: [id number]: 1975Acct:[id number]: EDService Date: 11/07/21Attending Dr: Ordering Physician: Lakesha Ventura MD Date of Service: 11/07/21 Procedure(s): US abdomen limited Accession Number(s): [id number] cc: Lakesha Ventura MD;) Assessment and Plan Assessment and plan (1) Nonalcoholic steatohepatitis: Status: Acute (2) Portal hypertension with esophageal varices: Problem comment: Last seen as an outpatient by Dr. Black at [facility] 12/17 - follow-up upper endoscopy with consideration of rebanding of varices recommended at that time; patient overdue for f/u with [facility]. Status: Acute (3) Nausea & vomiting: Status: Acute (4) Elevated INR: Problem comment: Given 5 mg of IV vitamin K on 11/07. Status: Acute (5) Chronic anticoagulation: Problem comment: INR range 2.5-3.5 Status: Acute (6) Acute liver failure: Problem comment: Baseline bilirubin 1.4 Status: Acute (7) Ascites: Status: Acute (8) Obesity: Status: Acute (9) Hernia: Status: Acute Plan The patient is a 46-year-old female who has likely acute on chronic liver failure, factor 5 Leiden deficiency, supratherapeutic on Coumadin and nausea, vomiting and abdominal pain as well as esophageal variceal history and ascites. I was asked to weigh in on this patient's finding of gallbladder wall thickening as well as consider paracentesis. First, I believe the gallbladder wall thickening is likely 2nd to her cirrhosis and ascites. She would not be a candidate for cholecystectomy. Regarding paracentesis: She does have a fair amount of ascites though on her CT scan her bowel is very close to her abdominal wall in most locations except in the pelvis and near the liver. It is reasonable to attempt ultrasound-guided paracentesis today for diagnostic and possibly therapeutic purposes. If there is no good window then I would defer until the ascites worsens. She does not appear to have SBP given her normal white count and minimal abdominal pain. I discussed the risks and benefits with the patient and she agreed to proceed. Reducible supraumbilical hernia: Nothing further to be done with this. Patient would not be a candidate for endoscopy here as we do not have the capability to handle variceal bleeding. If she has further hematemesis recommend transfer to outside facility if possible.
--- NOTE | 2021-11-08 15:01 | PC.NURSE ---
Pt has had multiple radiology scans on day shift. Dr. Coronado will be in at 4PM to perform paracentesis at bedside with guided US. Poor appetite. 500 cc fluid bolus infused. New IV start #24 to left wrist. Old IV site d/c'ed on right ventral f/a d/to infiltration. Report to oncoming shift.
[2021-11-08 15:55] LABS: Lactate* 4.2 mmol/L (0.5-1.9)
--- NOTE | 2021-11-08 17:05 | W.PM.PARA ---
Paracentesis Date Date: 11/08/21 Procedure Note Procedure: Paracentesis with Ultrasound Guidance Type of paracentesis: Diagnostic Initial or Repeat?: Initial Surgeon: Arabella Coronado Indications: Patient is a 46-year-old female with acute on chronic liver failure and ascites with worsening abdominal distension. It was felt that she would benefit from a diagnostic and therapeutic paracentesis we are Labs and Cytology Sent:: Yes Albumin infused: No Procedure Note:: Prior to the procedure, the risks and benefits of the procedure were discussed and an informed consent was obtained. Patient identification was confirmed and TIME OUT was performed. An ultrasound was brought onto the field and an easily accessible pocket of ascites was identified that was away from intraabdominal organs. The patient's abdomen in the right mid abdomen was prepped and draped in the usual sterile fashion. 1% Lidocaine was used to anesthetize the skin, soft tissues and peritoneum over the proposed needle insertion site. A skin incision was made with a scalpel just large enough to fit the needle. The needle with the paracentesis catheter was advanced into the abdomen and a cystic fluid was aspirated into the syringe. The needle was then withdrawn and the catheter was left in place. Once the needle was removed, no further fluid was able to be aspirated. The catheter was adjusted, however was unable to be advanced. This was removed. A 2nd needle and catheter was obtained. This was advanced into the fluid pocket under ultrasound guidance. Clear fluid was aspirated. The needle was then removed. The catheter was then connected to the drainage tubing. 1.2 Liters of straw colored fluid was drained. [his was sent to the lab for testing and cytology. Post procedure ultrasound revealed less residual ascitic fluid. The catheter was then removed and the skin was closed with Dermabond. Patient tolerated procedure well and there were no immediate complications. Patient's vital signs were stable throughout the procedure and no albumin was infused.
[2021-11-08 17:27] LABS: Percent Iron Saturation 69 % (20-50); Total Iron Binding Capacity 315 ug/dL (265-497)
[2021-11-08 17:37] LABS: Lactate Dehydrogenase* 720 U/L (313-618)
[2021-11-08 17:38] LABS: Total Protein* 7.5 g/dL (6.0-8.3)
[2021-11-08 17:59] LABS: Mononuclear WBC Body Fluid* 83 %; Polynuclear WBC Body Fluid* 17 %; RBC, Body Fluid* 0.001 10^6/uL; WBC, Body Fluid* 0.152 10^3/uL
[2021-11-08 18:03] LABS: BF Clarity* Clear; BF Color Xanthochromic; BF Total Volume* 15
[2021-11-08 18:10] LABS: Albumin Body Fluid* < 1.0 gm/dL; Glucose Body Fluid* 111 mg/dL
[2021-11-08 18:11] LABS: Amylase Body Fluid* < 30 U/L; LDH Body Fluid* 158 U/L
[2021-11-08 18:30] LABS: Body Fluid Total Protein* < 2.0 gm/dL
[2021-11-08] MEDS: SPIRONOLACTONE 25 MG TABLET PO (21:54)
[2021-11-08] MEDS: TRAZODONE HCL 50 MG TABLET PO (21:59)
--- NOTE | 2021-11-08 23:34 | PC.NURSE ---
Pt complaining of RUQ pain, Lorazepam per MAR given per order prior to paracentesis w/Dr. Coronado @1630. 1200cc fluid removed in RUQ. 1 opening closed with steri-strip. No N/V on shift.
[2021-11-09] VITALS (7 sets, daily range): BP systolic 130–148; BP diastolic 83–88; PULSE 97–104; RESP 16–20; TEMP 36.4–37; O2SAT 98–100
[2021-11-09] MEDS: OXYCODONE 5 MG TABLET 2.5 MG PO ×4 (00:33→18:50)
[2021-11-09] MEDS: ONDANSETRON ODT 4 MG TAB PO ×3 (03:36→20:46)
[2021-11-09] MEDS: 0.9 % SODIUM CHLORIDE 1000 ml 1,000 ML 125 ML IV ×3 (03:36→18:50)
--- NOTE | 2021-11-09 05:44 | PC.NURSE ---
[id number] PT restless at beginning of shift, eventually able to sleep, confused throughout night, frequently setting off bed alarm saying she wanted to go to bed and lay down, she was already in bed, reorientated pt. Up to br approx 530, as pt was sitting down on toilet, fell forward landing on knees, helped pt get up, assessed for injuries, none noted, pt already had bruising throughout lower extremities, asked pt if she falls a lot and she replied when I'm tired asked her if she falls a lot at home, pt replies yes asked if that's where she got her bruises, pt again replied yes.
[2021-11-09] MEDS: OMEPRAZOLE 20 MG CAPSULE DR PO ×2 (06:03→16:50)
[2021-11-09 07:07] LABS: HCO3 VBG 18 mmol/L (21-28); Lactate* 2.7 mmol/L (0.5-1.9); PCO2 VBG 28 mmHG (40-50)
[2021-11-09 07:10] LABS: Basophils Absolute Auto 0.03 K/uL (0.00-0.30); Basophils Percent Auto 0.4 % (0.0-3.0); Eosinophils Absolute Auto 0.15 K/uL (0.00-0.50); Eosinophils Percent Auto 2.1 % (0.0-7.0); Hematocrit 30.7 % (33.0-51.0); Hemoglobin* 9.9 gm/dL (12.0-16.0); Immature Granulocytes Abs Auto 0.02 K/uL (0.00-0.30); Lymphocytes Percent Auto 8.5 % (20-44); Mean Corpuscular HGB Conc 32 gm/dL (32-36); Mean Corpuscular Hemoglobin 31 pg (26-34); Mean Corpuscular Volume 95 fL (80-100); Monocytes Percent Auto 11.2 % (0.0-11.0); Neutrophils Percent Auto 77.5 % (42.0-72.0); Platelet Count* 110 K/uL (140-440); RDW Coefficient of Variation % 18.3 % (11.5-15.5); Red Blood Count 3.24 m/uL (4.00-5.20); White Blood Count* 7.08 K/uL (4.50-11.00)
[2021-11-09 07:21] LABS: Slide Review Reflex No
[2021-11-09 07:34] LABS: INR 1.54 (0.91-1.10); Prothrombin Time 18.9 Seconds
[2021-11-09 07:36] LABS: Chloride* 106 mmol/L (96-114); Potassium* 3.4 mmol/L (3.6-5.1); Sodium* 133 mmol/L (135-149)
[2021-11-09 07:38] LABS: Bilirubin Total* 3.6 mg/dL (0.1-1.5); Carbon Dioxide* 17 mmol/L (20-32); Creatinine* 0.4 mg/dL (0.5-1.5); Est. Creatinine Clearance* 146.92; Estimated Glomerular Filt Rate 124 ml/min
[2021-11-09 07:39] LABS: Alanine Aminotransferase* 27 U/L (4-35); Alkaline Phosphatase* 176 U/L (40-150); Aspartate Amino Transferase* 60 U/L (12-35); Blood Urea Nitrogen* 2 mg/dL (5-24); Glucose* 111 mg/dL (60-115); Total Protein* 6.9 g/dL (6.0-8.3)
--- NOTE | 2021-11-09 09:04 | PM.IMPN1 ---
Progress Note: A&P Assessment and plan (1) Acute liver failure: Problem details: Baseline bilirubin 1.4 Status: Acute Assessment and Plan: New onset ascites and bilirubin >3. Given IVF boluses upon admission given elevated lactate and clinical concern for dehydration, and patient has improved with increase po intake and less vomiting. We are restarting her diuretics at home dose today. Reviewed the case with Dr. Longoria of [facility] to discuss follow-up (urgent outpatient referral with EGD and consideration of variceal banding versus inpatient transfer). Given patient's hematemesis and acute liver failure with known chronic liver disease, he does not feel that she is a candidate for an outpatient procedure. We will continue to call tertiary care facilities throughout the state for transfer; no beds available at this time. (2) Nonalcoholic steatohepatitis: Status: Acute (3) Portal hypertension with esophageal varices: Problem details: Last seen as an outpatient by Dr. Black at [facility] 12/17 - follow-up upper endoscopy with consideration of rebanding of varices recommended at that time; patient overdue for f/u with [facility]. Status: Acute Assessment and Plan: Given hematemesis, we are holding her Coumadin. Hemoglobin has fallen today, we will recheck in the afternoon with a type and screen. BUN is normal. (4) Nausea & vomiting: Status: Acute Assessment and Plan: see #1 (5) Elevated INR: Problem details: Given 5 mg of IV vitamin K on 11/07. Status: Acute Assessment and Plan: INR now <2. (6) Chronic anticoagulation: Problem details: INR range 2.5-3.5 Status: Acute Assessment and Plan: Coumadin being held given hematemesis. SCDs for prophylaxis. (7) Ascites: Problem details: Paracentesis with Dr. Coronado on 11/08 Status: Acute Assessment and Plan: No growth on culture at this time, we have restarted her diuretics and will continue to watch fluid balance closely. (8) Murmur: Problem details: TTE completed 11/08 Final Impressions: 1. Normal left ventricular size, normal wall thickness, normal global systolic function, calculated EF of 74 %. 2. Right ventricular cavity size is normal, global systolic RV function is normal. 3. No hemodynamically significant valve disease detected. 4. The inferior vena cava is normal sized, respiratory size variation greater than 50%. 5. No pericardial effusion. Status: Acute Plan Per above. Continue to actively pursue transfer to tertiary care facility. Holding anticoagulation given bleeding concerns, continue SCDs for prophylaxis. PT/OT following given fall risk. Time Spent With Patient Total time spent: 45, >50% in coordination of care, updates, transfer attempts. Subjective Date Seen: 11/09/21 Interval history: Monica had a fall last night, and a fall this morning. She states both were mechanical and denies any lightheadedness, dizziness, or palpitations. She endorses frequent falls since her TBI. Her nausea and vomiting have improved. She has not had hematemesis today. She remains afebrile and hemodynamically stable. Her hemoglobin fell this morning to 9.9, BUN is normal. Exam Narrative: Exam Narrative: GEN: Alert and answering questions appropriately HEENT: Normal external ears, EOMIs bilaterally, dentition poor without concern of active infection, oropharynx otherwise clear CV: RRR, holosystolic murmur heard best at LSB, unchanged R: LCTA bilaterally without concerning wheezing, rales, or rhonchi Ab: + fluid wave, + hepatomegaly, mild ttp in RUQ but no other ttp on abdominal exam Ext: wwp, no concerning edema Skin: No concerning skin lesions or rashes on exposed skin Neuro: Nonfocal Psych: Appropriate Const: Vital Signs, click to edit/add: Vital Signs - 24 hr 11/08/21 12:00 11/08/21 15:00 11/08/21 16:00 Temperature 97.9 F 98.2 F Pulse Rate [Left P ulse Oximeter] 99 99 99 Respiratory Rate 18 18 18 Blood Pressure [Le ft Arm] 144/84 H Blood Pressure [Ri ght Arm] 143/82 H Pulse Oximetry 100 99 Oxygen Delivery Me thod Room Air Room Air 11/08/21 19:00 11/08/21 23:00 11/08/21 23:00 Temperature 98.2 F 98.6 F Pulse Rate [Left P ulse Oximeter] 100 101 H 101 H Respiratory Rate 16 16 16 Blood Pressure [Le ft Arm] Blood Pressure [Ri ght Arm] 145/87 H 144/82 H Pulse Oximetry 99 100 Oxygen Delivery Me thod Room Air Room Air 11/09/21 03:00 Temperature 98.6 F Pulse Rate [Left P ulse Oximeter] 104 H Respiratory Rate 16 Blood Pressure [Le ft Arm] 146/88 H Blood Pressure [Ri ght Arm] Pulse Oximetry 100 Oxygen Delivery Me thod Room Air Labs Labs: Laboratory Results - last 24 hr 11/08/21 11/08/21 11/08/21 06:25 06:25 06:25 WBC 10.17 RBC 5.26 H Hgb 15.8 Hct 48.2 MCV 92 MCH 30 MCHC 33 RDW Coeff of Kaleb Plt Count 124 L Neut % (Auto) Lymph % (Auto) Lawrence % (Auto) Eos % (Auto) Baso % (Auto) Neut # (Auto) Lymph # (Auto) Lawrence # (Auto) Eos # (Auto) Baso # (Auto) Abs Immat Gran (auto) INR VBG pH VBG pCO2 VBG pO2 VBG HCO3 Sodium 133 L Potassium 4.1 Chloride 108 Carbon Dioxide 10 L BUN 4 L Creatinine 0.4 L Estimated Creat Clear 146.92 Estimated GFR 124 Glucose 97 Lactate Calcium 8.6 Phosphorus 3.0 TIBC 315 % Saturation 69 H Total Bilirubin 3.4 H Direct Bilirubin 1.4 H GGT 220 H AST 74 H ALT 59 H Alkaline Phosphatase 186 H Lactate Dehydrogenase Troponin I 0.01 C-Reactive Protein 3.2 H Total Protein 8.1 Albumin 3.6 Cholesterol 128 Lipase 257 TSH Fluid Volume Fluid Color Fluid Appearance Fluid WBC Fluid RBC Fluid Polynuclear WBCs Fluid Mononuclear WBCs Fluid Glucose Fluid Total Protein Fluid Albumin Fluid LDH Fluid Amylase 11/08/21 11/08/21 11/08/21 06:25 15:46 17:05 WBC RBC Hgb Hct MCV MCH MCHC RDW Coeff of Kaleb Plt Count Neut % (Auto) Lymph % (Auto) Lawrence % (Auto) Eos % (Auto) Baso % (Auto) Neut # (Auto) Lymph # (Auto) Lawrence # (Auto) Eos # (Auto) Baso # (Auto) Abs Immat Gran (auto) INR VBG pH VBG pCO2 VBG pO2 VBG HCO3 Sodium Potassium Chloride Carbon Dioxide BUN Creatinine Estimated Creat Clear Estimated GFR Glucose Lactate 4.2 H* Calcium Phosphorus TIBC % Saturation Total Bilirubin Direct Bilirubin GGT AST ALT Alkaline Phosphatase Lactate Dehydrogenase 720 H Troponin I C-Reactive Protein Total Protein 7.5 Albumin Cholesterol Lipase TSH 3.150 Fluid Volume Fluid Color Fluid Appearance Fluid WBC Fluid RBC Fluid Polynuclear WBCs Fluid Mononuclear WBCs Fluid Glucose Fluid Total Protein Fluid Albumin Fluid LDH Fluid Amylase 11/08/21 11/09/21 11/09/21 17:09 06:50 06:50 WBC 7.08 RBC 3.24 L Hgb 9.9 L Hct 30.7 L MCV 95 MCH 31 MCHC 32 RDW Coeff of Kaleb 18.3 H Plt Count 110 L Neut % (Auto) 77.5 H Lymph % (Auto) 8.5 L Lawrence % (Auto) 11.2 H Eos % (Auto) 2.1 Baso % (Auto) 0.4 Neut # (Auto) 5.50 Lymph # (Auto) 0.60 L Lawrence # (Auto) 0.80 Eos # (Auto) 0.15 Baso # (Auto) 0.03 Abs Immat Gran (auto) 0.02 INR 1.54 H VBG pH VBG pCO2 VBG pO2 VBG HCO3 Sodium Potassium Chloride Carbon Dioxide BUN Creatinine Estimated Creat Clear Estimated GFR Glucose Lactate Calcium Phosphorus TIBC % Saturation Total Bilirubin Direct Bilirubin GGT AST ALT Alkaline Phosphatase Lactate Dehydrogenase Troponin I C-Reactive Protein Total Protein Albumin Cholesterol Lipase TSH Fluid Volume 15 Fluid Color Xanthochromic A Fluid Appearance Clear Fluid WBC 0.152 Fluid RBC 0.001 Fluid Polynuclear WBCs 17 Fluid Mononuclear WBCs 83 Fluid Glucose 111 Fluid Total Protein < 2.0 Fluid Albumin < 1.0 Fluid LDH 158 Fluid Amylase < 30 11/09/21 11/09/21 06:50 06:50 WBC RBC Hgb Hct MCV MCH MCHC RDW Coeff of Kaleb Plt Count Neut % (Auto) Lymph % (Auto) Lawrence % (Auto) Eos % (Auto) Baso % (Auto) Neut # (Auto) Lymph # (Auto) Lawrence # (Auto) Eos # (Auto) Baso # (Auto) Abs Immat Gran (auto) INR VBG pH 7.420 VBG pCO2 28 L VBG pO2 48.0 H VBG HCO3 18 L Sodium 133 L Potassium 3.4 L Chloride 106 Carbon Dioxide 17 L BUN 2 L Creatinine 0.4 L Estimated Creat Clear 146.92 Estimated GFR 124 Glucose 111 Lactate 2.7 H Calcium 8.0 L Phosphorus TIBC % Saturation Total Bilirubin 3.6 H Direct Bilirubin GGT AST 60 H ALT 27 Alkaline Phosphatase 176 H Lactate Dehydrogenase Troponin I C-Reactive Protein Total Protein 6.9 Albumin 3.0 L Cholesterol Lipase TSH Fluid Volume Fluid Color Fluid Appearance Fluid WBC Fluid RBC Fluid Polynuclear WBCs Fluid Mononuclear WBCs Fluid Glucose Fluid Total Protein Fluid Albumin Fluid LDH Fluid Amylase
[2021-11-09] MEDS: PROCHLORPERAZINE 10 MG TABLET PO (09:10)
[2021-11-09] MEDS: FLUTICASONE PROPIONATE NASAL 2 SPRAY NOSTRIL-B (09:10)
[2021-11-09] MEDS: SPIRONOLACTONE 25 MG TABLET PO ×2 (09:11→20:46)
[2021-11-09] MEDS: LACTULOSE 20 GM/30 ML PO ×2 (09:15→20:46)
[2021-11-09 14:41] LABS: Basophils Absolute Auto 0.03 K/uL (0.00-0.30); Basophils Percent Auto 0.3 % (0.0-3.0); Eosinophils Absolute Auto 0.09 K/uL (0.00-0.50); Eosinophils Percent Auto 0.9 % (0.0-7.0); Hematocrit 31.8 % (33.0-51.0); Hemoglobin* 10.1 gm/dL (12.0-16.0); Immature Granulocytes Abs Auto 0.04 K/uL (0.00-0.30); Lymphocytes Percent Auto 7.7 % (20-44); Mean Corpuscular HGB Conc 32 gm/dL (32-36); Mean Corpuscular Hemoglobin 31 pg (26-34); Mean Corpuscular Volume 97 fL (80-100); Monocytes Percent Auto 9.5 % (0.0-11.0); Neutrophils Percent Auto 81.2 % (42.0-72.0); Platelet Count* 146 K/uL (140-440); RDW Coefficient of Variation % 18.5 % (11.5-15.5); Red Blood Count 3.28 m/uL (4.00-5.20); White Blood Count* 9.89 K/uL (4.50-11.00)
[2021-11-09 14:46] LABS: Slide Review Reflex No
--- NOTE | 2021-11-09 16:03 | PC.NURSE ---
Pt continues to rate her pain 8-10 out of 10 though she has a flat affect secondary to her hx of TBI in 2002 when she slipped on the ice and hit my head. Prn oxycodone 2.5 mg given PO twice on day shift. Pt continues to have a poor appetite and intermittent dry heaves. She received scheduled zofran and prn compazine for her chronic nausea. Dietary consult initiated by RN. Maintenance IVF continue. Report to Monica Prescott RN for evening shift.
[2021-11-09] MEDS: TRAZODONE HCL 50 MG TABLET PO (20:46)
--- NOTE | 2021-11-09 22:46 | PC.NURSE ---
Shift Note [id number]: Flat affect, answers questions appropriately. Rates pain 7/10, PRN Oxycodone given. VS WNL and LS COA. Scattered bruising to shins, right shoulder blade, and right side of abdomen from paracentesis. During HS cares pt brushed her teeth and gums were bloody. Mouth rinsed with water and bleeding has stopped. Poor appetite, pt did drink a juice and a broth as well as a couple bites of cake. Pt is continent and voiding, urine is concentrated.
[2021-11-10] VITALS: BP 144/68; PULSE 100; RESP 18; TEMP 36.6; O2SAT 100
[2021-11-10] MEDS: LORazepam 2 MG/ML inj 1 MG IVP (00:52)
[2021-11-10] MEDS: 0.9 % SODIUM CHLORIDE 1000 ml 1,000 ML 125 ML IV (02:17)
[2021-11-10 02:21] VITALS: BP 135/83; PULSE 103; RESP 18; TEMP 36.6; O2SAT 100
[2021-11-10] MEDS: ONDANSETRON ODT 4 MG TAB PO (04:02)
--- NOTE | 2021-11-10 04:44 | PC.NURSE ---
[id number]: patient up with assist X1 walker and gait belt. patient switched between bed and chair through out the night, c/o pain and nausea that improves with medication; see EMAR.
[2021-11-10] MEDS: OMEPRAZOLE 20 MG CAPSULE DR PO (06:37)
[2021-11-10 08:00] VITALS: PULSE 102; RESP 18
[2021-11-10 08:03] LABS: Basophils Absolute Auto 0.03 K/uL (0.00-0.30); Basophils Percent Auto 0.4 % (0.0-3.0); Eosinophils Percent Auto 2.3 % (0.0-7.0); Hematocrit 30.2 % (33.0-51.0); Hemoglobin* 9.7 gm/dL (12.0-16.0); Immature Granulocytes Abs Auto 0.03 K/uL (0.00-0.30); Mean Corpuscular HGB Conc 32 gm/dL (32-36); Mean Corpuscular Hemoglobin 31 pg (26-34); Mean Corpuscular Volume 96 fL (80-100); Monocytes Percent Auto 10.1 % (0.0-11.0); Neutrophils Percent Auto 78.8 % (42.0-72.0); Platelet Count* 123 K/uL (140-440); RDW Coefficient of Variation % 18.3 % (11.5-15.5); Red Blood Count 3.16 m/uL (4.00-5.20); White Blood Count* 8.55 K/uL (4.50-11.00)
[2021-11-10 08:04] LABS: Slide Review Reflex No
[2021-11-10 08:18] LABS: Albumin* 3.1 g/dL (3.3-5.0); Chloride* 107 mmol/L (96-114); Potassium* 3.2 mmol/L (3.6-5.1); Sodium* 133 mmol/L (135-149)
[2021-11-10 08:20] LABS: Aspartate Amino Transferase* 59 U/L (12-35); Bilirubin Total* 3.4 mg/dL (0.1-1.5); Carbon Dioxide* 14 mmol/L (20-32); Creatinine* 0.3 mg/dL (0.5-1.5); Est. Creatinine Clearance* 195.89; Estimated Glomerular Filt Rate 133 ml/min
[2021-11-10 08:21] LABS: Alanine Aminotransferase* 30 U/L (4-35); Alkaline Phosphatase* 169 U/L (40-150); Calcium* 7.9 mg/dL (8.4-10.6); Glucose* 116 mg/dL (60-115); INR 1.41 (0.91-1.10); Prothrombin Time 17.7 Seconds; Total Protein* 7.1 g/dL (6.0-8.3)
[2021-11-10 08:24] LABS: Blood Urea Nitrogen* < 2 mg/dL (5-24)
[2021-11-10] MEDS: OXYCODONE 5 MG TABLET 2.5 MG PO ×2 (08:28→12:31)
[2021-11-10] MEDS: FUROSEMIDE 20 MG TABLET PO (08:58)
[2021-11-10] MEDS: SPIRONOLACTONE 25 MG TABLET PO (08:58)
[2021-11-10] MEDS: FLUTICASONE PROPIONATE NASAL 2 SPRAY NOSTRIL-B (08:59)
[2021-11-10] MEDS: LACTULOSE 20 GM/30 ML PO (09:00)
--- NOTE | 2021-11-10 09:09 | PM.IMPN1 ---
Progress Note: A&P Assessment and plan (1) Portal hypertension with esophageal varices: Problem details: Last seen as an outpatient by Dr. Black at [facility] 12/17 - follow-up upper endoscopy with consideration of rebanding of varices recommended at that time; patient overdue for f/u with [facility]. Status: Acute Assessment and Plan: Patient presented on 11/07 with 4-6 weeks of intermittent hematemesis. Requires higher level of care hospitalization with GI involvement. She has on her home doses of diuretics at this time. (2) Nonalcoholic steatohepatitis: Problem details: With resultant cirrhosis Status: Acute (3) Cirrhosis: Status: Acute (4) Nausea & vomiting: Status: Acute Assessment and Plan: Has continued to improve since admission, negative upper GI with small bowel follow-through on 11/08. (5) Elevated INR: Problem details: Given 5 mg of IV vitamin K on 11/07. Status: Acute Assessment and Plan: Patient's INR was 15 on admission (presumed to be iatrogenic from recent Macrobid), given vitamin K on admission. INR is 1.43 today. We have held anticoagulation during stay given hematemesis upon arrival in addition to concern for bleeding. (6) Chronic anticoagulation: Problem details: INR range 2.5-3.5 Status: Acute Assessment and Plan: Patient is on Coumadin for history of SMV thrombosis (7) Ascites: Problem details: Paracentesis with Dr. Coronado on 11/08 Status: Acute Assessment and Plan: New, no evidence of SBP by fluid analysis. (8) Murmur: Problem details: TTE completed 11/08 Final Impressions: 1. Normal left ventricular size, normal wall thickness, normal global systolic function, calculated EF of 74 %. 2. Right ventricular cavity size is normal, global systolic RV function is normal. 3. No hemodynamically significant valve disease detected. 4. The inferior vena cava is normal sized, respiratory size variation greater than 50%. 5. No pericardial effusion. Status: Acute Plan Reviewed case with multiple hospitals throughout the [facility] area; bed availability continues to be severely limited. Reviewed case with Dr. Brooke at [facility] in [place], who has agreed to accept patient in transfer for higher level of care and GI services. If patient were to remain stable after EGD, she would be able to return to [facility] for any follow-up cares not requiring GI intervention. Patient is agreeable to transfer, as is her sister Mony (CORNELIO, nurse in [place], [place]). Mony can be reached at [phone]. Time Spent With Patient Total time spent: 60, > 50% in coordination of care and transfer discussions, as well as updates to family. Subjective Date Seen: 11/10/21 Interval history: Monica has no concerns for me this morning. She has had 2 more mechanical falls, witnessed. She has a history of these since her TBI, sister confirms this. Her appetite is improving, she has not had vomiting for the last 24 hours. Hemoglobin has remained stable over the past 24 hours. BUN remains normal. She is afebrile and hemodynamically stable. Exam Narrative: Exam Narrative: GEN: Alert, sittin g comfortably in b edside chair, answ ering questions ap propriately HEENT : Normal external ears, EOMIs bilate rally, dentition p oor without concer n of active infect ion, oropharynx ot herwise clear CV: RRR, holosystolic murmur heard best at LSB, unchanged R: LCTA bilaterall y without concerni ng wheezing, rales , or rhonchi Ab: + fluid wave, + hep atomegaly, mild br uising over site o f recent paracente sis Ext: wwp, no c oncerning edema Sk in: Scattered bru ising over extremi ties abdomen and b ack from recent fa lls, stable Neuro: No resting tremo r, no asterixis, g ait not observed P sych: Flat affect ,baseline Const: Vital Signs, click to edit/add: Vital Signs - 24 hr 11/09/21 12:00 11/09/21 15:00 11/09/21 16:00 Temperature 98.2 F 97.7 F Pulse Rate [Left P ulse Oximeter] 98 97 97 Respiratory Rate 18 18 18 Blood Pressure [Le ft Arm] Blood Pressure [Ri ght Arm] 141/83 H 130/85 Pulse Oximetry 100 98 Oxygen Delivery Me thod Room Air Room Air 11/09/21 20:00 11/10/21 00:00 11/09/21 23:00 Temperature 97.5 F L 98 F Pulse Rate [Left P ulse Oximeter] 102 H 100 100 Respiratory Rate 18 18 18 Blood Pressure [Le ft Arm] 144/68 H Blood Pressure [Ri ght Arm] 131/83 Pulse Oximetry 99 100 Oxygen Delivery Me thod Room Air Room Air 11/10/21 02:21 Temperature 97.8 F Pulse Rate [Left P ulse Oximeter] 103 H Respiratory Rate 18 Blood Pressure [Le ft Arm] 135/83 Blood Pressure [Ri ght Arm] Pulse Oximetry 100 Oxygen Delivery Me thod Room Air Labs Labs: Laboratory Results - last 24 hr 11/09/21 11/09/21 11/10/21 14:15 14:15 07:55 WBC 9.89 RBC 3.28 L Hgb 10.1 L Hct 31.8 L MCV 97 MCH 31 MCHC 32 RDW Coeff of Kaleb 18.5 H Plt Count 146 Neut % (Auto) 81.2 H Lymph % (Auto) 7.7 L Desha % (Auto) 9.5 Eos % (Auto) 0.9 Baso % (Auto) 0.3 Neut # (Auto) 8.00 H Lymph # (Auto) 0.80 L Desha # (Auto) 0.90 Eos # (Auto) 0.09 Baso # (Auto) 0.03 Abs Immat Gran (auto) 0.04 INR 1.41 H Sodium Potassium Chloride Carbon Dioxide BUN Creatinine Estimated Creat Clear Estimated GFR Glucose Calcium Total Bilirubin AST ALT Alkaline Phosphatase Total Protein Albumin Blood Type A Positive Antibody Screen NEGATIVE 11/10/21 11/10/21 07:55 07:55 WBC 8.55 RBC 3.16 L Hgb 9.7 L Hct 30.2 L MCV 96 MCH 31 MCHC 32 RDW Coeff of Kaleb 18.3 H Plt Count 123 L Neut % (Auto) 78.8 H Lymph % (Auto) 8.0 L Desha % (Auto) 10.1 Eos % (Auto) 2.3 Baso % (Auto) 0.4 Neut # (Auto) 6.70 Lymph # (Auto) 0.70 L Desha # (Auto) 0.90 Eos # (Auto) 0.20 Baso # (Auto) 0.03 Abs Immat Gran (auto) 0.03 INR Sodium 133 L Potassium 3.2 L Chloride 107 Carbon Dioxide 14 L BUN < 2 L Creatinine 0.3 L Estimated Creat Clear 195.89 Estimated GFR 133 Glucose 116 H Calcium 7.9 L Total Bilirubin 3.4 H AST 59 H ALT 30 Alkaline Phosphatase 169 H Total Protein 7.1 Albumin 3.1 L Blood Type Antibody Screen
[2021-11-10] MEDS: POTASSIUM CHLORIDE 10 MEQ CAPSULE ER 20 MEQ PO (11:14)
[2021-11-10 11:29] VITALS: BP 124/78; PULSE 98; RESP 16; TEMP 36.6; O2SAT 98
--- NOTE | 2021-11-10 12:14 | PC.NURSE ---
Report given to Elham RICHARDS at [facility] for transfer. All questions answered. stated would give a call once pt leave facility. Pt informed by computer meteorologist and pt ok with transfer per computer meteorologist.
--- NOTE | 2021-11-10 13:26 | PC.NURSE ---
by transferred to [facility] for higher level of care and GI services via [facility]. report given to Elham [place] and EMS transporting pt, all questions answered. pt stable on transfer and belongings sent with pt.
== END 2021-11-10 12:55 | disposition short-term general hospital (02) | DRG 441 ==
LOC: ED 16:38 → MEDSURG 19:47
PROVIDERS: Family Medicine; Surgery; Admitting Provider Family Medicine; Emergency Provider Emergency Medicine; PCP Family Medicine; Visit Provider Internal Medicine
DX: K76.6 Portal hypertension (principal); I85.11 Secondary esophageal varices with bleeding; K72.00 Acute and subacute hepatic failure without coma; K92.0 Hematemesis; R18.8 Other ascites; D68.2 Hereditary deficiency of other clotting factors; D68.32 Hemorrhagic disorder due to extrinsic circulating anticoagulants; D68.51 Activated protein C resistance; E87.3 Alkalosis; E44.0 Moderate protein-calorie malnutrition; K74.69 Other cirrhosis of liver; K75.81 Nonalcoholic steatohepatitis (NASH); T37.8X5A Adverse effect of other specified systemic anti-infectives and antiparasitics, initial encounter; K72.10 Chronic hepatic failure without coma; Z79.01 Long term (current) use of anticoagulants; E66.9 Obesity, unspecified; E86.0 Dehydration; F41.9 Anxiety disorder, unspecified; K74.60 Unspecified cirrhosis of liver; K59.00 Constipation, unspecified; Z86.718 Personal history of other venous thrombosis and embolism; R01.1 Cardiac murmur, unspecified
CPT/HCPCS: 36415; 49083; 74177; 74240; 74248; 76705; 80048; 80053; 80076; 80306; 81001; 82042; 82150; 82465; 82803; 82945; 82977; 83036; 83540; 83550; 83605; 83615; 83690; 84100; 84155; 84157; 84443; 84484; 85025; 85027; 85610; 85730; 86140; 86850; 86900; 86901; 87070; 87086; 87186; 87205; 87502; 87634; 87635; 88112; 89051; 93306; 97110; 97116; 97161; 97165; 97530; 99284; 99285; A9270; J0610; J0780; J2060; J3430; J7030; J7120; Q9967

== ENCOUNTER 2021-11-10 12:38 | Outpatient (CLI) | payer OTHER, SELFPAY | END 2021-11-10 12:39 | disposition home or self-care (01) | LOC: AMB 12-03 11:35 | PROVIDERS: PCP Family Medicine; Visit Provider Family Medicine | DX: R18.8 Other ascites (principal); K72.90 Hepatic failure, unspecified without coma; K75.81 Nonalcoholic steatohepatitis (NASH); K76.6 Portal hypertension; Z79.01 Long term (current) use of anticoagulants | CPT/HCPCS: A0425; A0428 ==

== ENCOUNTER 2021-11-12 12:20 | Outpatient (CLI) | payer OTHER, SELFPAY | END 2021-11-12 12:21 | disposition home or self-care (01) | LOC: AMB 11-16 12:55 | PROVIDERS: PCP Family Medicine; Visit Provider Family Medicine | DX: R53.1 Weakness (principal) | CPT/HCPCS: A0425; A0428 ==

== ENCOUNTER 2021-11-12 15:55 | Inpatient (IN) | payer OTHER, SELFPAY ==
--- NOTE | 2021-11-12 16:21 | P.IMHP_ITS ---
Hospitalist- H&P: HPI History of Present Illness Date Seen: 11/12/21 Chief complaint: Cirrhosis Narrative: Monica Haines is a 46 year old female with a complex history involving Portal Hypertension with chronic ascites and the concern for esophageal varices who was recently hospitalized at our facility and transferred [address] [facility] for GI evaluation of possible esophageal varices. Pt states she hated her time there although it is not clear why. What is clear is that the patient underwent and EGD which showed Gastritis and Gastropathy with Grade 1 Esophageal Varices. No signs of acute bleeding were noted. GI recommended Coreg 3.125 mg BID and continued PPI. Lovenox was started back today at 100 mg BID. Pt initially had presented to our facility with Nausea, Vomiting and Weakness as well as occasional hematemesis and a 15 lb weight loss. Pt was noted to have an INR greater than 15 which was reversed. Pts hgb fell from 12.3 to roughly 9 which led to the above mentioned transfer. Pt underwent an abdominal paracentesis at 1400 cc which was felt to be negative for SBP. Pt now feels well. She is weary from the long trip but states that she has no pain, nausea, vomiting or problems with her stool. Review of Systems Status of ROS: Reports: 10 or more systems reviewed and unremarkable except as noted in History and below [facility] Medical History (Updated 11/12/21 @ 16:49 by Chad Jackson MD) Acute liver failure Adult acne Asthma Chronic anticoagulation Esophageal varices Factor 5 Leiden mutation, heterozygous Foot injury Insomnia Nonalcoholic steatohepatitis Obesity Polycystic ovarian syndrome Polycystic ovaries (10/24/08) Portal hypertension with esophageal varices Portal vein thrombosis Shoulder injury Traumatic brain injury Traumatic brain injury UTI (urinary tract infection) Surgical History History of right breast biopsy History of third molar tooth extraction (10/24/08) History of tonsillectomy and adenoidectomy (10/24/08) Hx of nasal septoplasty S/P breast biopsy S/P foot surgery S/P tonsillectomy and adenoidectomy Status post surgery of both feet Family History Other Diabetes Social History Highest level of school completed/degree received: Associate degree: occupational, technical, vocational program Smoking Status: Never smoker Do you use any of these nicotine containing products: None How often do you have a drink containing alcohol: monthly or less AUDIT-C Alcohol total score: 1 Non-prescribed substance use: denies use Caffeine: Yes (soda in AM) Meds Home Medications and Allergies Home Medications Medication Instructions Recorded Confirmed Type diphenhydramine 25 1 tab PO HS PRN 08/24/21 11/08/21 History mg-acetaminophen 500 mg tablet (Tylenol PM Extra Strength) fluticasone propionate 50 2 spray intranasal QDAY 08/24/21 11/08/21 History mcg/actuation nasal spray,suspension (Allergy Relief (fluticasone)) furosemide 20 mg tablet 20 mg PO DAILY 08/24/21 11/08/21 History loratadine 10 mg tablet (Allergy 10 mg PO QDAY 08/24/21 11/08/21 History Relief (loratadine)) metformin 500 mg tablet 1,000 mg PO DAILY 08/24/21 11/08/21 History omeprazole 20 mg capsule,delayed 20 mg PO DAILY 08/24/21 11/12/21 History release prochlorperazine maleate 10 mg 10 mg PO TID PRN 08/24/21 11/08/21 History tablet pseudoephedrine HCl 120 mg 120 mg PO Q12H 08/24/21 11/12/21 History tablet,extended release (Sudafed 12 Hour) spironolactone 25 mg tablet 25 mg PO BID 08/24/21 11/08/21 History warfarin 3 mg tablet See Rx Instructions PO QDAY 08/24/21 11/08/21 History gabapentin 300 mg capsule 300 mg PO TID pain 11/08/21 11/12/21 History trazodone 50 mg tablet 50 mg PO HS 11/08/21 11/08/21 History carvedilol 3.125 mg tablet 3.125 mg PO BID 11/12/21 11/12/21 History cyclobenzaprine 10 mg tablet mg PO DAILY PRN 11/12/21 History enoxaparin 100 mg/mL subcutaneous 100 mg subcut Q12H 11/12/21 11/12/21 History syringe (Lovenox) epinephrine 0.3 mg/0.3 mL 0.3 ml IM Q5-15M PRN 11/12/21 11/12/21 History injection, auto-injector (EpiPen) ferrous gluconate 324 mg (37.5 mg 324 mg PO BID 11/12/21 11/12/21 History iron) tablet ondansetron HCl 4 mg tablet 4 mg PO Q6H PRN 11/12/21 11/12/21 History phenazopyridine 200 mg tablet 200 mg PO TID PRN 11/12/21 11/12/21 History scopolamine base 1 mg over 3 days 1 patch transdermal Q72H PRN 11/12/21 11/12/21 History transdermal patch Home Medication Comments: Complex and above. Allergies Allergy/AdvReac Type Severity Reaction Status Date / Time bee venom protein (honey bee) Allergy Severe Verified 09/24/21 13:00 clavulanic acid Allergy Severe Verified 09/24/21 13:00 diphtheria,pertussis Allergy Severe Swelling Verified 09/24/21 13:00 (acellular),te [From Boostrix Tdap] Penicillins Allergy Severe Hives Verified 09/24/21 13:00 Sulfa (Sulfonamide Allergy Severe N/V Verified 09/24/21 13:00 Antibiotics) latex Allergy Intermediate Verified 09/24/21 13:00 cat dander Allergy Mild Hives Verified 09/24/21 13:00 codeine Allergy Mild Vomiting Verified 09/24/21 13:00 dog dander Allergy Mild Hives Verified 09/24/21 13:00 strawberry Allergy Mild numbness Verified 09/24/21 13:00 lips and tongue Dust Allergy Severe Wheezing Uncoded 09/24/21 13:00 Tetanus toxoid Allergy Severe major Uncoded 09/24/21 13:00 swelling Tobacco Allergy Intermediate sinusitis Uncoded 09/24/21 13:00 Birds Allergy Mild Hives Uncoded 09/24/21 13:00 tropical fruits Allergy Mild hives, Uncoded 09/24/21 13:00 swelling Exam Narrative: Exam Narrative: EXAM GENERAL: Patient appears obese with slow cognition. EYES: No scleral icterus. ENT: Tympanic membranes and oropharynx normal. LYMPH: No supraclavicular or cervical lymphadenopathy. SKIN: Visible skin seen during exam normal or with benign process only. Minor bruising noted. EXT: No dependent lower extremity pedal edema. HEART: Distant heart tones with 2/6 systolic murmur. LUNGS: Clear to auscultation bilaterally with no crackles or wheezes. ABD: Mildly distended with fluid wave consistent with chronic ascites. No rebound masses or guarding. PSYCH: Good eye contact, speech is not pressured. Neurologic cranial nerves 2-12 grossly intact. Effects of TBI noted during conversation. Hospitalist - H&P: Result Labs Labs: Records from [facility] reviewed. I do not see labs from today. Assessment and Plan Assessment and plan (1) Portal hypertension with esophageal varices: Problem comment: Last seen as an outpatient by Dr. Black at [facility] 12/17 - follow-up upper endoscopy with consideration of rebanding of varices recommended at that time; patient overdue for f/u with [facility]. Status: Acute Assessment and Plan: Pt seen by GI at [facility]. Gastritis, Gastropathy with Grade 1 Esophageal Varices noted. Pt started back on Lovenox today as well as continued PPI. Coreg dosed at 3.125 mg BID. Will review previous meds as well. Recomended repeat EGD in one year. Will check CBC now. (2) Cirrhosis: Status: Acute Assessment and Plan: Will resume previous therapy as she tolerates. Pt will need to follow with GI as outpt. (3) Ascites: Problem comment: Paracentesis with Dr. Coronado on 11/08 Status: Acute Assessment and Plan: Pt's ascites cultures still negative. Will resume diuretics as she tolerates. Try to limit fluid intake (4) Hernia: Status: Chronic Assessment and Plan: Chronic No signs of incarceration (5) Nonalcoholic steatohepatitis: Problem comment: With resultant cirrhosis Status: Chronic Assessment and Plan: This is the cause for her Cirrhosis and Varices. Will continue outpt regiment as she tolerates and plan for GI follow up. (6) Chronic anticoagulation: Problem comment: INR range 2.5-3.5 Status: Chronic Assessment and Plan: Pt started back on Lovenox today will repeat CBC, INR in am with consideration of restarting coumadin. (7) Traumatic brain injury: Status: Chronic (8) Murmur: Problem comment: TTE completed 11/08 Final Impressions: 1. Normal left ventricular size, normal wall thickness, normal global systolic function, calculated EF of 74 %. 2. Right ventricular cavity size is normal, global systolic RV function is normal. 3. No hemodynamically significant valve disease detected. 4. The inferior vena cava is normal sized, respiratory size variation greater than 50%. 5. No pericardial effusion. Status: Acute Assessment and Plan: No change from above. Plan Pt will need placement as she is not able to care for herself. Pt would like to be a full code. I will be contacting her sister who is POA as well.
[2021-11-12 16:50] VITALS: BP 116/70; PULSE 87; RESP 16; TEMP 36.6; O2SAT 99
[2021-11-12 18:09] LABS: Basophils Absolute Auto 0.05 K/uL (0.00-0.30); Basophils Percent Auto 0.5 % (0.0-3.0); Eosinophils Absolute Auto 0.27 K/uL (0.00-0.50); Eosinophils Percent Auto 2.9 % (0.0-7.0); Hematocrit 30.7 % (33.0-51.0); Hemoglobin* 9.9 gm/dL (12.0-16.0); Immature Granulocytes Abs Auto 0.05 K/uL (0.00-0.30); Lymphocytes Percent Auto 7.7 % (20-44); Mean Corpuscular HGB Conc 32 gm/dL (32-36); Mean Corpuscular Hemoglobin 30 pg (26-34); Mean Corpuscular Volume 93 fL (80-100); Monocytes Percent Auto 9.5 % (0.0-11.0); Neutrophils Percent Auto 78.9 % (42.0-72.0); Platelet Count* 145 K/uL (140-440); RDW Coefficient of Variation % 18.4 % (11.5-15.5); Red Blood Count 3.29 m/uL (4.00-5.20); White Blood Count* 9.47 K/uL (4.50-11.00)
[2021-11-12 18:10] LABS: Slide Review Reflex No
[2021-11-12 18:22] LABS: Albumin* 3.1 g/dL (3.3-5.0)
[2021-11-12 18:23] LABS: Chloride* 99 mmol/L (96-114); Potassium* 3.1 mmol/L (3.6-5.1); Sodium* 130 mmol/L (135-149)
[2021-11-12 18:25] LABS: Bilirubin Total* 4.3 mg/dL (0.1-1.5); Carbon Dioxide* 19 mmol/L (20-32); Creatinine* 0.3 mg/dL (0.5-1.5); Estimated Glomerular Filt Rate 133 ml/min
[2021-11-12 18:26] LABS: Alanine Aminotransferase* 37 U/L (4-35); Alkaline Phosphatase* 180 U/L (40-150); Aspartate Amino Transferase* 75 U/L (12-35); Blood Urea Nitrogen* 3 mg/dL (5-24); Calcium* 8.1 mg/dL (8.4-10.6); Glucose* 112 mg/dL (60-115); Total Protein* 7.2 g/dL (6.0-8.3)
[2021-11-12 19:00] VITALS: BP 142/85; PULSE 100; RESP 20; TEMP 36.8; O2SAT 100
--- NOTE | 2021-11-12 19:24 | CRLHL7_ITS ---
For Patients: As a result of the Century Cures Act, medical imaging exams and procedure reports are released immediately into your electronic medical record. You may view this report before your referring provider. If you have questions, please contact your health care provider. INDICATION: Weakness. TECHNIQUE: CT head without contrast. COMPARISON: None. FINDINGS: CSF spaces: Prominent extra-axial CSF spaces along the frontal convexities. Brain parenchyma: The carlos-white differentiation is normal. No sign of mass, hemorrhage, or midline shift. Skull base and calvarium: The visualized paranasal sinuses and mastoid air cells demonstrate no acute or significant findings. The visualized orbits are grossly unremarkable. No skull fractures. IMPRESSION: No acute intracranial abnormality. Please note that all CT scans at this facility use dose modulation, iterative reconstruction, and/or weight-based dosing when appropriate to reduce radiation dose to as low as reasonably achievable. Dictated by Pavel Hinds MD @ 11/12/2021 11:03:01 PM (Electronically Signed)
[2021-11-12 19:45] VITALS: BP 116/70; PULSE 87; RESP 16; TEMP 36.6; O2SAT 99; BMI 37.2
--- NOTE | 2021-11-12 19:52 | PC.NURSE ---
Patient arrived via EMS around 1540. Patient settled in bed. Attempted to transfer patient from bed to bedside commode and patient was very weak and had legs give out. Patient unable to support her weight and almost fell to the floor. Her weight was supported by 2 nurses and was able to transfer back to bed. Patient was then moved to room 245 to utilize the ceiling juice bar team member for safety of future transfers. Patient's sister in to visit this evening and expressed great concern about the change in the patients mental status and physical decline. Stated that she drove to Mom's house on 11/07/21 and was perceived to be well - having normal conversation and normal physical functioning. Sister was concerned that there could be something else going on. This information was shared with Dr. Jackson and he placed an order to obtain a CT of her head.
[2021-11-12 20:10] LABS: SARS PCR* Negative SARS-CoV-2 (Negative)
[2021-11-12] MEDS: carvediloL 6.25 MG TABLET 3.125 MG PO (21:38)
[2021-11-12] MEDS: FERROUS SULFATE 325 MG TABLET PO (21:38)
[2021-11-12] MEDS: SPIRONOLACTONE 25 MG TABLET PO (21:46)
[2021-11-12] MEDS: TRAZODONE HCL 50 MG TABLET PO (21:46)
[2021-11-12] MEDS: SODIUM CHLORIDE 0.9 % (FLUSH) 10 ML SYRINGE 5 ML IVF (21:46)
[2021-11-12] MEDS: ENOXAPARIN 100 MG/ML INJ SUBCUT (22:50)
[2021-11-12 23:00] VITALS: BP 113/90; PULSE 100; RESP 20; TEMP 36.4; O2SAT 100
[2021-11-13] VITALS (7 sets, daily range): BP systolic 98–130; BP diastolic 75–86; PULSE 85–96; RESP 16–22; TEMP 36.4–36.7; O2SAT 98–100
[2021-11-13] MEDS: OMEPRAZOLE 20 MG CAPSULE DR PO (06:10)
--- NOTE | 2021-11-13 06:35 | PC.NURSE ---
[id number]: Patient exhibits slowed mentation. Forgetful and confused at times. Set off bed alarm numerous times. Patient able to turn and reposition self in bed. Ceiling lift for transfers per previous shift d/t weakness. Bed grullon utilized. Urine noted to have blood. Multiple bruises noted throughout arms and legs.
[2021-11-13 07:12] LABS: INR 1.39 (0.91-1.10); Prothrombin Time 17.5 Seconds
[2021-11-13 07:13] LABS: Albumin* 2.7 g/dL (3.3-5.0)
[2021-11-13 07:14] LABS: Basophils Absolute Auto 0.03 K/uL (0.00-0.30); Basophils Percent Auto 0.3 % (0.0-3.0); Chloride* 102 mmol/L (96-114); Eosinophils Absolute Auto 0.19 K/uL (0.00-0.50); Eosinophils Percent Auto 2.1 % (0.0-7.0); Hematocrit 27.3 % (33.0-51.0); Immature Granulocytes Abs Auto 0.05 K/uL (0.00-0.30); Lymphocytes Percent Auto 10.1 % (20-44); Mean Corpuscular HGB Conc 33 gm/dL (32-36); Mean Corpuscular Hemoglobin 30 pg (26-34); Mean Corpuscular Volume 92 fL (80-100); Monocytes Percent Auto 11.3 % (0.0-11.0); Neutrophils Percent Auto 75.7 % (42.0-72.0); Platelet Count* 113 K/uL (140-440); Potassium* 3.1 mmol/L (3.6-5.1); RDW Coefficient of Variation % 18.1 % (11.5-15.5); Red Blood Count 2.96 m/uL (4.00-5.20); Sodium* 129 mmol/L (135-149); White Blood Count* 9.15 K/uL (4.50-11.00)
[2021-11-13 07:16] LABS: Aspartate Amino Transferase* 79 U/L (12-35); Bilirubin Total* 4.4 mg/dL (0.1-1.5); Carbon Dioxide* 19 mmol/L (20-32); Creatinine* 0.3 mg/dL (0.5-1.5); Est. Creatinine Clearance* 195.89; Estimated Glomerular Filt Rate 133 ml/min; Total Protein* 6.4 g/dL (6.0-8.3)
[2021-11-13 07:17] LABS: Alanine Aminotransferase* 37 U/L (4-35); Alkaline Phosphatase* 165 U/L (40-150); Blood Urea Nitrogen* 4 mg/dL (5-24); Calcium* 8.2 mg/dL (8.4-10.6); Glucose* 107 mg/dL (60-115)
[2021-11-13 07:42] LABS: Slide Review Reflex Yes
[2021-11-13 07:43] LABS: Slide Review Acceptable Review (Acceptable)
[2021-11-13] MEDS: carvediloL 6.25 MG TABLET 3.125 MG PO ×2 (08:50→21:34)
[2021-11-13] MEDS: POTASSIUM CHLORIDE 10 MEQ CAPSULE ER 20 MEQ PO ×3 (08:50→17:51)
[2021-11-13] MEDS: FUROSEMIDE 20 MG TABLET PO (08:50)
[2021-11-13] MEDS: SPIRONOLACTONE 25 MG TABLET PO ×2 (08:51→21:34)
[2021-11-13] MEDS: FLUTICASONE PROPIONATE NASAL 2 SPRAY NOSTRIL-B (08:51)
[2021-11-13] MEDS: FERROUS SULFATE 325 MG TABLET PO ×2 (08:51→21:34)
[2021-11-13] MEDS: SODIUM CHLORIDE 0.9 % (FLUSH) 10 ML SYRINGE 5 ML IVF ×2 (08:51→21:33)
--- NOTE | 2021-11-13 09:26 | P.IMPN_ITS ---
Progress Note: A&P Assessment and plan (1) Portal hypertension with esophageal varices: Problem details: Last seen as an outpatient by Dr. Black at [facility] 12/17 - follow-up upper endoscopy with consideration of rebanding of varices recommended at that time; patient overdue for f/u with [facility]. Status: Acute (2) Traumatic brain injury: Status: Chronic (3) Cirrhosis: Status: Acute (4) Ascites: Problem details: Paracentesis with Dr. Coronado on 11/08 Status: Acute (5) Nonalcoholic steatohepatitis: Problem details: With resultant cirrhosis Status: Chronic (6) Elevated INR: Problem details: Given 5 mg of IV vitamin K on 11/07. Status: Acute (7) Chronic anticoagulation: Problem details: INR range 2.5-3.5 Status: Chronic (8) Murmur: Problem details: TTE completed 11/08 Final Impressions: 1. Normal left ventricular size, normal wall thickness, normal global systolic function, calculated EF of 74 %. 2. Right ventricular cavity size is normal, global systolic RV function is normal. 3. No hemodynamically significant valve disease detected. 4. The inferior vena cava is normal sized, respiratory size variation greater than 50%. 5. No pericardial effusion. Status: Acute Plan Assessment: 46F with PMhx of GOLDSMITH/Cirrhosis s/p EGD at [facility] showing Gastritis, Grade 1 Esophageal Varices, readmitted back to [facility] on 11/12 after completion of EGD at Replaced by [facility] 1. Hx of Portal HTN 2. Esophageal Varices 3. Hx of GOLDSMITH/Cirrhosis 4. Ascites 5. Hypokalemia 6. Hx of Hematemesis and Warfarin induced coagulpathy 7. Chronic hyponatremia; sodium 129 today Plan -repeat hemoglobin 3pm; monitor fors/s of bleeding -continue lovenox; if stable hgb; resume warfarin tomorrow -potassium replacement -check magnesium -GI recs -coreg 3.125 mg BID -PPI -continue lovenox -CT head no acute findings -resume PT, OT -250 cc NS bolus Subjective Date Seen: 11/13/21 Interval history: patient denies abdominal pain no nausea or vomiting denies headache Boyfriend at bedside Exam Narrative: Exam Narrative: Gen: no acute distress HEENT: NCAT EOMI MMM CV: RRR normal s1 s2 Lungs: CTAB Abd: soft, nt,nd Neuro: alert, oriented, Const: Vital Signs, click to edit/add: Vital Signs - 24 hr 11/12/21 16:50 11/12/21 19:45 11/12/21 19:00 Temperature 98 F 98 F 98.3 F Pulse Rate [Pulse Oximeter] 87 87 100 Respiratory Rate 16 16 20 Blood Pressure [Le ft Arm] 116/70 116/70 142/85 H Pulse Oximetry 99 99 100 Oxygen Delivery Me thod Room Air Room Air Room Air 11/12/21 23:00 11/13/21 03:00 Temperature 97.6 F 97.8 F Pulse Rate [Pulse Oximeter] 100 92 Respiratory Rate 20 20 Blood Pressure [Le ft Arm] 113/90 H 123/77 Pulse Oximetry 100 100 Oxygen Delivery Me thod Room Air Room Air Labs Labs: Laboratory Results - last 24 hr 11/12/21 11/12/21 11/12/21 18:00 18:00 18:02 WBC 9.47 RBC 3.29 L Hgb 9.9 L Hct 30.7 L MCV 93 MCH 30 MCHC 32 RDW Coeff of Kaleb 18.4 H Plt Count 145 Neut % (Auto) 78.9 H Lymph % (Auto) 7.7 L [place] % (Auto) 9.5 Eos % (Auto) 2.9 Baso % (Auto) 0.5 Neut # (Auto) 7.50 H Lymph # (Auto) 0.70 L [place] # (Auto) 0.90 Eos # (Auto) 0.27 Baso # (Auto) 0.05 Abs Immat Gran (auto) 0.05 Diff Slide Review INR Sodium 130 L Potassium 3.1 L Chloride 99 Carbon Dioxide 19 L BUN 3 L Creatinine 0.3 L Estimated Creat Clear Estimated GFR 133 Glucose 112 Calcium 8.1 L Total Bilirubin 4.3 H AST 75 H ALT 37 H Alkaline Phosphatase 180 H Total Protein 7.2 Albumin 3.1 L SARS-CoV-2 (PCR) Negative SARS-CoV-2 11/13/21 11/13/21 11/13/21 06:40 06:40 06:40 WBC 9.15 RBC 2.96 L Hgb 9.0 L Hct 27.3 L MCV 92 MCH 30 MCHC 33 RDW Coeff of Kaleb 18.1 H Plt Count 113 L Neut % (Auto) 75.7 H Lymph % (Auto) 10.1 L [place] % (Auto) 11.3 H Eos % (Auto) 2.1 Baso % (Auto) 0.3 Neut # (Auto) 6.90 Lymph # (Auto) 0.90 [place] # (Auto) 1.00 H Eos # (Auto) 0.19 Baso # (Auto) 0.03 Abs Immat Gran (auto) 0.05 Diff Slide Review Acceptable Review INR 1.39 H Sodium 129 L Potassium 3.1 L Chloride 102 Carbon Dioxide 19 L BUN 4 L Creatinine 0.3 L Estimated Creat Clear 195.89 Estimated GFR 133 Glucose 107 Calcium 8.2 L Total Bilirubin 4.4 H AST 79 H ALT 37 H Alkaline Phosphatase 165 H Total Protein 6.4 Albumin 2.7 L SARS-CoV-2 (PCR)
[2021-11-13] MEDS: 0.9 % SODIUM CHLORIDE 250 ml 250 ML IV (10:02)
[2021-11-13] MEDS: ONDANSETRON ODT 4 MG TAB PO (10:02)
[2021-11-13] MEDS: ENOXAPARIN 100 MG/ML INJ SUBCUT ×2 (11:11→23:24)
--- NOTE | 2021-11-13 11:47 | REH.OT ---
Orders received for OT and PT. Patient very somnolent and not appropriate for therapy services today. Will attempt on 11/14/21
[2021-11-13 15:45] LABS: Potassium* 3.5 mmol/L (3.6-5.1)
[2021-11-13 15:50] LABS: Magnesium* 1.5 mg/dL (1.5-2.6)
[2021-11-13 16:32] LABS: Hemoglobin* 9.6 gm/dL (12.0-16.0)
[2021-11-13] MEDS: LACTULOSE 20 GM/30 ML PO (18:00)
--- NOTE | 2021-11-13 19:09 | PC.NURSE ---
End of Shift ([id number]): Intermittent forgetfulness/confusion and slow to respond. Afebrile. Denies pain. Able to reposition self in bed but unable to stand when attempted with 3 assist from chair, legs buckled. Up to chair and BSC with 2 assist and ceiling lift. C/o nausea after some clear liquids for breakfast, PRN Zofran given x1. Unable to void by 1400 and patient bladder scanned for 249 mL, updated MD and no new orders at this time. Patient was able to void by the end of the shift. No BM.
[2021-11-13] MEDS: TRAZODONE HCL 50 MG TABLET PO (21:34)
[2021-11-14] VITALS (8 sets, daily range): BP systolic 116–153; BP diastolic 73–119; PULSE 90–100; RESP 20–42; TEMP 36.2–36.9; O2SAT 98–100
[2021-11-14] MEDS: OMEPRAZOLE 20 MG CAPSULE DR PO (06:35)
--- NOTE | 2021-11-14 06:55 | PC.NURSE ---
END OF SHIFT NOTE: PT CONFUSED. A&Ox1. PT GAVE RANDOM NUMBERS WHEN PT WAS ASKED TO STATE LAST NAME. SPEECH IS SOFT SPOKEN, MUMBLING, ?WORD SALAD?. PT EXTREMELY RESTLESS. TRYING TO GET OUT OF BED FREQUENTLY. BED ALARM ACTIVATED, BED IN LOWEST POSITION, SIDE RAILS RAISED AND?CALL LIGHT WITHIN REACH. PT IN ROOM #245 ACROSS FROM NURSE STATION. PT ABLE TO REPOPOSITION SELF; THOUGH UNABLE TO ?BOOST? SELF IN BED. PT HAVING HALLUCINATIONS (TRYING TO REMOVE SHEETS FROM SELF THAT ARE NOT THERE; ?PICKING? AT BED TO REMOVE ITEMS NOT THERE). PT WITH FLAT AFFECT. PT DID NOT SLEEP THROUGHOUT THE NIGHT, BUT PT WAS OBSERVED TO BE IN A ?SLEEP-LIKE? STATE WITH EYES OPEN FOR SHORT PERIODS AT A TIME. BLADDER SCANNED FOR 179ML. PT C/O PAIN WHEN ABDOMEN HELD UP DURING BLADDER SCAN.?GAGGED TRYING TO SWALLOW MED THIS MORNING. NO EMESIS.?
[2021-11-14 07:12] LABS: Basophils Percent Auto 0.3 % (0.0-3.0); Hematocrit 27.7 % (33.0-51.0); Hemoglobin* 9.2 gm/dL (12.0-16.0); Immature Granulocytes Abs Auto 0.08 K/uL (0.00-0.30); Lymphocytes Percent Auto 11.5 % (20-44); Mean Corpuscular HGB Conc 33 gm/dL (32-36); Mean Corpuscular Hemoglobin 31 pg (26-34); Mean Corpuscular Volume 92 fL (80-100); Monocytes Percent Auto 12.2 % (0.0-11.0); Neutrophils Percent Auto 73.3 % (42.0-72.0); Platelet Count* 155 K/uL (140-440); RDW Coefficient of Variation % 18.2 % (11.5-15.5); Red Blood Count 3.01 m/uL (4.00-5.20); White Blood Count* 11.61 K/uL (4.50-11.00)
[2021-11-14 07:18] LABS: Albumin* 2.8 g/dL (3.3-5.0); Chloride* 102 mmol/L (96-114); INR 1.62 (0.91-1.10); Potassium* 3.5 mmol/L (3.6-5.1); Prothrombin Time 19.7 Seconds; Sodium* 130 mmol/L (135-149)
[2021-11-14 07:20] LABS: Carbon Dioxide* 16 mmol/L (20-32); Creatinine* 0.3 mg/dL (0.5-1.5); Est. Creatinine Clearance* 195.89; Estimated Glomerular Filt Rate 133 ml/min
[2021-11-14 07:21] LABS: Alanine Aminotransferase* 49 U/L (4-35); Alkaline Phosphatase* 183 U/L (40-150); Aspartate Amino Transferase* 98 U/L (12-35); Bilirubin Direct* 2.5 mg/dL (0.0-0.5); Bilirubin Total* 5.9 mg/dL (0.1-1.5); Blood Urea Nitrogen* 4 mg/dL (5-24); Glucose* 109 mg/dL (60-115); Total Protein* 6.6 g/dL (6.0-8.3)
[2021-11-14 07:43] LABS: Slide Review Reflex Yes
[2021-11-14 07:44] LABS: Slide Review Acceptable Review (Acceptable)
[2021-11-14] MEDS: POTASSIUM CHLORIDE 10 MEQ CAPSULE ER 20 MEQ PO ×3 (08:30→18:14)
[2021-11-14] MEDS: carvediloL 6.25 MG TABLET 3.125 MG PO ×2 (08:32→21:14)
[2021-11-14] MEDS: FERROUS SULFATE 325 MG TABLET PO ×2 (08:32→21:14)
[2021-11-14] MEDS: SPIRONOLACTONE 25 MG TABLET PO ×2 (08:33→21:14)
[2021-11-14] MEDS: FUROSEMIDE 20 MG TABLET PO (08:33)
[2021-11-14] MEDS: FLUTICASONE PROPIONATE NASAL 2 SPRAY NOSTRIL-B (08:36)
[2021-11-14] MEDS: LACTULOSE 20 GM/30 ML PO ×2 (08:36→21:16)
[2021-11-14] MEDS: SODIUM CHLORIDE 0.9 % (FLUSH) 10 ML SYRINGE 5 ML IVF (08:36)
--- NOTE | 2021-11-14 09:07 | CRLHL7_ITS ---
For Patients: As a result of the Century Cures Act, medical imaging exams and procedure reports are released immediately into your electronic medical record. You may view this report before your referring provider. If you have questions, please contact your health care provider. INDICATION: SOB Possible PNA TECHNIQUE: Single view chest. FINDINGS: The lungs are clear. The heart, mediastinum and pulmonary vessels are of normal size. There is no evidence of pleural disease. Low lung volumes. IMPRESSION: Negative chest. Dictated by Jessica Arredondo MD @ 11/14/2021 10:15:07 AM (Electronically Signed)
--- NOTE | 2021-11-14 09:08 | CRLHL7_ITS ---
For Patients: As a result of the Century Cures Act, medical imaging exams and procedure reports are released immediately into your electronic medical record. You may view this report before your referring provider. If you have questions, please contact your health care provider. INDICATION: Cirrhosis. Check for ascites. TECHNIQUE: Limited transabdominal imaging with assessment of all 4 quadrants. COMPARISON: CT from 11/07/2021. IMPRESSION: Small to moderate amount of ascites is noted, with the largest amounts in both upper quadrants. Dictated by Antwon Jarrett MD @ 11/14/2021 10:06:13 AM (Electronically Signed)
[2021-11-14 09:48] LABS: Procalcitonin* 0.26 ng/mL (<0.50)
--- NOTE | 2021-11-14 09:53 | PM.IMPN1 ---
Progress Note: A&P Assessment and plan (1) Esophageal varices: Status: Acute (2) Cirrhosis: Status: Acute (3) Portal hypertension with esophageal varices: Problem details: Last seen as an outpatient by Dr. Black at [facility] 12/17 - follow-up upper endoscopy with consideration of rebanding of varices recommended at that time; patient overdue for f/u with [facility]. Status: Acute (4) Ascites: Problem details: Paracentesis with Dr. Coronado on 11/08 Status: Acute (5) Nonalcoholic steatohepatitis: Problem details: With resultant cirrhosis Status: Chronic (6) Elevated INR: Problem details: Given 5 mg of IV vitamin K on 11/07. Status: Acute (7) Chronic anticoagulation: Problem details: INR range 2.5-3.5 Status: Chronic (8) Traumatic brain injury: Status: Chronic (9) Encephalopathy acute: Status: Acute Plan Assessment: 46F with PMhx of GOLDSMITH/Cirrhosis s/p EGD at [facility] showing Gastritis, Grade 1 Esophageal Varices, readmitted back to [facility] on 11/12 after completion of EGD at [facility] 1. Hx of Portal HTN 2. Esophageal Varices 3. Hx of GOLDSMITH/Cirrhosis 4. Ascites 5. Hypokalemia 6. Hx of Hematemesis and Warfarin induced coagulpathy 7. Chronic hyponatremia; sodium 129->130 8. Hepatic and metabolic Encephalopathy Plan 11/14 -repeat hemoglobin 3pm; monitor fors/s of bleeding -continue lovenox; if stable hgb; resume warfarin tomorrow -potassium replacement -check magnesium -GI recs -coreg 3.125 mg BID -PPI -continue lovenox -CT head no acute findings -resume PT, OT -250 cc NS bolus -discussed wtih significant other at bedside Plan 11/15 -WBC elevated today and worsening confusion ddx: Sepsis, hepatic+Metabolic encephalopathy -hold lasix -IV bolus + albumin -obtain blood cx, lactate, procal, UA, ammonia -CXR and RUQ US -restart warfarin, continue lovenox -hold trazadone -if lactate, procal elevated will start empiric antibiotics -continue lactulose -follow LFTs/INR -will discuss with family Subjective Date Seen: 11/14/21 Interval history: pt confused this morning; oriented to time but not place started on lactulose yesterday patient unable to provide detailed hx Exam Narrative: Exam Narrative: Gen: no acute distress HEENT: NCAT EOMI MMM Cv: RRR normal s1 s2 Lungs: CTAB Abd: Soft, nt, nd Neuro: AOX1, able to follow some commands; moves extremities Const: Vital Signs, click to edit/add: Vital Signs - 24 hr 11/13/21 12:00 11/13/21 15:00 11/13/21 16:00 Temperature 97.5 F L 98.0 F Pulse Rate [Pulse Oximeter] 85 85 96 Respiratory Rate 16 16 16 Blood Pressure [Le ft Arm] 98/77 120/84 Pulse Oximetry 99 99 Oxygen Delivery Me thod Room Air Room Air 11/13/21 20:00 11/13/21 23:00 11/13/21 23:00 Temperature 97.6 F 97.8 F Pulse Rate [Pulse Oximeter] 91 95 95 Respiratory Rate 20 22 22 Blood Pressure [Le ft Arm] 130/75 122/76 Pulse Oximetry 100 100 Oxygen Delivery Me thod Room Air Room Air 11/14/21 03:30 11/14/21 07:00 Temperature 98.4 F 97.9 F Pulse Rate [Pulse Oximeter] 96 96 Respiratory Rate 28 H 20 Blood Pressure [Le ft Arm] 116/73 127/75 Pulse Oximetry 99 100 Oxygen Delivery Me thod Room Air Room Air Labs Labs: Laboratory Results - last 24 hr 11/13/21 11/13/21 11/13/21 15:23 15:23 15:23 WBC RBC Hgb Hct MCV MCH MCHC RDW Coeff of Kaleb Plt Count Neut % (Auto) Lymph % (Auto) [place] % (Auto) Eos % (Auto) Baso % (Auto) Neut # (Auto) Lymph # (Auto) [place] # (Auto) Eos # (Auto) Baso # (Auto) Abs Immat Gran (auto) Diff Slide Review INR Sodium Potassium 3.5 L Chloride Carbon Dioxide BUN Creatinine Estimated Creat Clear Estimated GFR Glucose Calcium Magnesium 1.5 Total Bilirubin Direct Bilirubin AST ALT Alkaline Phosphatase Ammonia 88.0 H Total Protein Albumin 11/13/21 11/14/21 11/14/21 16:26 06:50 06:50 WBC 11.61 H RBC 3.01 L Hgb 9.6 L 9.2 L Hct 27.7 L MCV 92 MCH 31 MCHC 33 RDW Coeff of Kaleb 18.2 H Plt Count 155 Neut % (Auto) 73.3 H Lymph % (Auto) 11.5 L [place] % (Auto) 12.2 H Eos % (Auto) 2.0 Baso % (Auto) 0.3 Neut # (Auto) 8.50 H Lymph # (Auto) 1.30 [place] # (Auto) 1.40 H Eos # (Auto) 0.20 Baso # (Auto) 0.00 Abs Immat Gran (auto) 0.08 Diff Slide Review Acceptable Review INR 1.62 H Sodium Potassium Chloride Carbon Dioxide BUN Creatinine Estimated Creat Clear Estimated GFR Glucose Calcium Magnesium Total Bilirubin Direct Bilirubin AST ALT Alkaline Phosphatase Ammonia Total Protein Albumin 11/14/21 06:50 WBC RBC Hgb Hct MCV MCH MCHC RDW Coeff of Kaleb Plt Count Neut % (Auto) Lymph % (Auto) [place] % (Auto) Eos % (Auto) Baso % (Auto) Neut # (Auto) Lymph # (Auto) [place] # (Auto) Eos # (Auto) Baso # (Auto) Abs Immat Gran (auto) Diff Slide Review INR Sodium 130 L Potassium 3.5 L Chloride 102 Carbon Dioxide 16 L BUN 4 L Creatinine 0.3 L Estimated Creat Clear 195.89 Estimated GFR 133 Glucose 109 Calcium 8.0 L Magnesium Total Bilirubin 5.9 H Direct Bilirubin 2.5 H AST 98 H ALT 49 H Alkaline Phosphatase 183 H Ammonia Total Protein 6.6 Albumin 2.8 L
[2021-11-14] MEDS: ALBUMIN HUMAN 25% 100 ML VIAL IV ×2 (10:12→13:29)
[2021-11-14] MEDS: 0.9 % SODIUM CHLORIDE 250 ml 250 ML IV (10:18)
[2021-11-14 10:31] LABS: Lactate* 4.4 mmol/L (0.5-1.9)
--- NOTE | 2021-11-14 10:33 | PC.NURSE ---
CRITICAL LACTATE LEVEL REPORTED BY LAB. DR. SCHMITZ UPDATED.
[2021-11-14 10:48] LABS: Magnesium* 1.7 mg/dL (1.5-2.6)
--- NOTE | 2021-11-14 11:26 | CRLHL7_ITS ---
For Patients: As a result of the Cures Act, medical imaging exams and procedure reports are released immediately into your electronic medical record. You may view this report before your referring provider. If you have questions, please contact your health care provider. Indication: ANTIBIOTIC AND IV ACCESS Technique: Sonographic images of the right basilic vein and right internal jugular vein. IMPRESSION: Sonographic guidance for right arm PICC line placement. Dictated by Mitchell Li MD @ 11/15/2021 8:17:21 AM (Electronically Signed)
--- NOTE | 2021-11-14 11:28 | CRLHL7_ITS ---
For Patients: As a result of the Century Cures Act, medical imaging exams and procedure reports are released immediately into your electronic medical record. You may view this report before your referring provider. If you have questions, please contact your health care provider. INDICATION: PICC placement. TECHNIQUE: PA chest. FINDINGS: Two images were submitted. The image time stamped 5:15 p.m. demonstrates a right-sided PICC with tip in the right atrium. The image time stamped 5:21 p.m. shows the PICC withdrawn several cm and tip now located within the low SVC. Dictated by Carl Jacobo MD @ 11/14/2021 5:26:17 PM Dictated by: Calr Jacobo MD @ 11/14/2021 17:26:28 (Electronically Signed)
[2021-11-14] MEDS: cefTRIAXone 2 GM in 0.9 % SODIUM CHLORIDE Mini-bag 100 ML IVPB (11:32)
[2021-11-14] MEDS: ENOXAPARIN 100 MG/ML INJ SUBCUT (11:35)
[2021-11-14] MEDS: 0.9 % SODIUM CHLORIDE 1000 ml 1,000 ML IV (12:11)
--- NOTE | 2021-11-14 12:55 | PM.GSPN ---
Subjective Subjective Date Seen: 11/14/21 Interval history: Monica is a 46-year-old female with acute on chronic liver failure was admitted to [facility] with abdominal pain and vomiting. She underwent therapeutic and diagnostic paracentesis by me approximately 1 week ago. She was transferred to an outside facility for upper endoscopy given her significant hemoglobin drift. She was found to have varices and gastritis. Since then she was restarted on anticoagulation and she has had a sepsis like picture with an increased white blood cell count as well as altered mental status. Because of this I have been asked to repeat paracentesis. For diagnostic purposes. She did undergo an ultrasound today which showed a small amount of fluid Exam Narrative: Exam Narrative: General: Patient is somewhat sleepy but does arouse to voice skin is oriented to self Abdomen: Obese. Minimally tender to palpation. Const: Vital Signs, click to edit/add: Vital Signs - 24 hr 11/13/21 15:00 11/13/21 16:00 11/13/21 20:00 Temperature 98.0 F 97.6 F Pulse Rate [Pulse Oximeter] 85 96 91 Respiratory Rate 16 16 20 Blood Pressure [Le ft Arm] 120/84 130/75 Pulse Oximetry 99 100 Oxygen Delivery Me thod Room Air Room Air 11/13/21 23:00 11/13/21 23:00 11/14/21 03:30 Temperature 97.8 F 98.4 F Pulse Rate [Pulse Oximeter] 95 95 96 Respiratory Rate 22 22 28 H Blood Pressure [Le ft Arm] 122/76 116/73 Pulse Oximetry 100 99 Oxygen Delivery Me thod Room Air Room Air 11/14/21 07:00 11/14/21 07:00 11/14/21 11:00 Temperature 97.9 F 97.3 F L Pulse Rate [Pulse Oximeter] 96 96 90 Respiratory Rate 20 20 20 Blood Pressure [Le ft Arm] 127/75 123/73 Pulse Oximetry 100 99 Oxygen Delivery Me thod Room Air Room Air Labs/Imaging Labs Labs: White blood cell count 11 Imaging Imaging: Ordering Physician: Gabriele Warren M.D. Date of Service: 11/14/21 Procedure(s): US abdomen limited Accession Number(s): [id number] cc: Gabriele Warren M.D.; Dl Oneil M.D.~ For Patients:? As a result of the Cures Act, medical imaging exams and procedure reports are released immediately into your electronic medical record.? You may view this report before your referring provider.? If you have questions, please contact your health care provider. INDICATION: Cirrhosis. Check for ascites. TECHNIQUE: Limited transabdominal imaging with assessment of all 4 quadrants. COMPARISON: CT from 11/07/2021. IMPRESSION: Small to moderate amount of ascites is noted, with the largest amounts in both upper quadrants. Dictated by Antwon Jarrett MD @ 11/14/2021 10:06:13 AM (Electronically Signed) Progress Note: A&P Assessment and plan (1) Encephalopathy acute: Status: Acute (2) Nonalcoholic steatohepatitis: Problem details: With resultant cirrhosis Status: Chronic (3) Portal hypertension with esophageal varices: Problem details: Last seen as an outpatient by Dr. Black at [facility] 12/17 - follow-up upper endoscopy with consideration of rebanding of varices recommended at that time; patient overdue for f/u with [facility]. Status: Acute (4) Ascites: Problem details: Paracentesis with Dr. Coronado on 11/08 Status: Acute (5) Elevated INR: Problem details: Given 5 mg of IV vitamin K on 11/07. Status: Acute Plan The patient is a 46-year-old female with cirrhosis and now septic like picture concerning for spontaneous bacterial peritonitis. She is on broad antibiotics. Ultrasound showed a small amount of ascites, however we repeated the ultrasound with an attempt at paracentesis and there was not a safe pocket in an area that was accessible. The best pocket was in the right upper quadrant however there was bowel and liver precluding access. This was discussed with the the patient's sister as well as the hospitalist. Recommend that radiologist try tomorrow to see if he can get a sample. Would hold Lovenox for this. Continue broad antibiotics.
[2021-11-14 13:05] LABS: Appearance Urine Clear (Clear); Bilirubin Urine 3+ (Negative); Blood Urine Negative (Negative); Color Urine Orange (Yellow); Glucose Urine Trace (Negative); Ketones Urine 1+ (Negative); Leukocyte Esterase Urine Negative (Negative); Nitrite Urine Negative (Negative); Protein Urine Negative (Negative); Urobilinogen Urine >=8.0 (0.2-1.0)
[2021-11-14 13:16] LABS: Lactate Sepsis w/Reflex* 4.6 mmol/L (0.5-1.9)
--- NOTE | 2021-11-14 14:20 | CRLHL7_ITS ---
For Patients: As a result of the Century Cures Act, medical imaging exams and procedure reports are released immediately into your electronic medical record. You may view this report before your referring provider. If you have questions, please contact your health care provider. HISTORY: Abdominal pain and nausea. COMPARISON: Of 11/07/2021. TECHNIQUE: Axial images were obtained through the abdomen pelvis following 100 cc of Isovue-370 intravenous contrast. FINDINGS: The lung bases are clear. Cirrhotic liver. Mild small amount of intra-abdominal ascites similar to the prior study. There is a barium in the colon which creates beam hardening artifact degrading the images. Mild splenomegaly. The pancreas and visualized gallbladder and adrenal glands and kidneys appear within normal. No evidence for small bowel obstruction. Small abdominal wall hernia containing fat unchanged. The bones are within normal. Impression : No acute abnormality. Retained barium in the colon limits the study. Cirrhosis and mild ascites appear unchanged. Please note that all CT scans at this facility use dose modulation, iterative reconstruction, and/or weight-based dosing when appropriate to reduce radiation dose to as low as reasonably achievable. Dictated by Anne Garcia MD @ 11/14/2021 6:10:21 PM (Electronically Signed)
[2021-11-14] MEDS: ONDANSETRON ODT 4 MG TAB PO (14:22)
[2021-11-14 17:40] LABS: Lactate Sepsis w/Reflex* 4.7 mmol/L (0.5-1.9)
[2021-11-14] MEDS: WARFARIN 5 MG TABLET PO (18:13)
[2021-11-14 18:56] LABS: Lactate Sepsis 2 Hour 4.8 mmol/L (0.5-1.9)
--- NOTE | 2021-11-14 18:57 | PC.NURSE ---
UPDATED DR. MCLAIN WITH CRITICAL LACTATE LEVEL OF 4.[address] MCLAIN ORDERED FOR FOLLOW-UP LACTATE AT 1900. JUST NOTIFIED OF CRITICAL LACTATE OF 4.8. DR. MCLAIN UPDATED AND NO FURTHER ORDERS AT THIS TIME.
--- NOTE | 2021-11-14 20:04 | PC.NURSE ---
End of Shift: Patient alert to self. Afebrile. Up to chair and BSC with 2 assist and ceiling lift. Able to reposition self in bed but unable to bear any weight on lower extremities. Patient up to chair and BSC frequently and constantly moving around in bed with very minimal rest in between. C/o nausea x1 and PRN Zofran given. Voided x1 for 600 mL. BM x1 and guaiac positive and pt also c/o abdominal pain, updated MD. Patient lowered to the floor by JAMAAL who was sitting 1:1 when patient attempted to stand up from chair. Returned to bed with 3 assist and ceiling lift. Respiratory rate 34-38, blood pressure 145/116. MD updated and in to see patient. PICC line placed this shift.
--- NOTE | 2021-11-14 20:26 | P.DS_ITS ---
Transfer Discharge Sum: Prov Provider Date Seen: 11/14/21 Date of admission: 11/14/21 09:57 Primary care physician: Dl Oneil MD Consults: 11/12/21 16:52 Consult to Occupational Therapy [CONS] Routine Comment: Reason(s) for OT Consult:: Difficulty Managing ADLs Any Restrictions?:: Non Wt Bearing Consult to Physical Therapy [CONS] Routine Comment: Reason(s) for PT Consult:: Evaluate and Treat Any Restrictions?:: Non Wt Bearing 11/12/21 21:11 Consult to Occupational Therapy [CONS] Routine Comment: Reason(s) for OT Consult:: Difficulty Managing ADLs Any Restrictions?:: Unknown Consult to Physical Therapy [CONS] Routine Comment: Reason(s) for PT Consult:: Weakness Any Restrictions?:: Unknown 11/13/21 13:28 Consult to Associate Professor Of Surgery [CONS] Routine Comment: Reason for Consult:: Social Service Consult 11/14/21 10:44 Consult to Physician [CONS] Routine Comment: paracentesis; SBP Consulting Provider: Arabella Coronado Has provider been notified: Yes DS: Diagnosis Discharge Diagnosis (1) Encephalopathy acute: Status: Acute (2) Traumatic brain injury: Status: Chronic (3) Nonalcoholic steatohepatitis: Status: Chronic Problem details: With resultant cirrhosis (4) Esophageal varices: Status: Acute (5) Cirrhosis: Status: Acute (6) Ascites: Status: Acute Problem details: Paracentesis with Dr. Coronado on 11/08 (7) Chronic anticoagulation: Status: Chronic Problem details: INR range 2.5-3.5 (8) Protein-calorie malnutrition, moderate: Status: Acute (9) Obesity: Status: Acute Transfer Discharge Sum: Med Medications Active and Home Medications: Home Medications diphenhydramine 25 mg-acetaminophen 500 mg tablet (Tylenol PM Extra Strength) 1 tab PO HS PRN 08/24/21 [History Confirmed 11/13/21] fluticasone propionate 50 mcg/actuation nasal spray,suspension (Allergy Relief (fluticasone)) 2 spray intranasal QDAY 08/24/21 [History Confirmed 11/13/21] furosemide 20 mg tablet 20 mg PO DAILY 08/24/21 [History Confirmed 11/13/21] loratadine 10 mg tablet (Allergy Relief (loratadine)) 10 mg PO QDAY 08/24/21 [History Confirmed 11/13/21] metformin 500 mg tablet 1,000 mg PO DAILY 08/24/21 [History Confirmed 11/13/21] omeprazole 20 mg capsule,delayed release 20 mg PO BID 08/24/21 [History Confirmed 11/13/21] prochlorperazine maleate 10 mg tablet 10 mg PO TID PRN 08/24/21 [History Confirmed 11/13/21] pseudoephedrine HCl 120 mg tablet,extended release (Sudafed 12 Hour) 120 mg PO DAILY 08/24/21 [History Confirmed 11/13/21] spironolactone 25 mg tablet 25 mg PO BID 08/24/21 [History Confirmed 11/13/21] warfarin 3 mg tablet See Rx Instructions PO QDAY 08/24/21 [History Confirmed 11/13/21] tramadol 50 mg tablet 50 - 100 mg PO Q6H PRN pain #90 tabs 09/01/21 [Rx Confirmed 11/13/21] gabapentin 300 mg capsule 900 mg PO BID pain 11/08/21 [History Confirmed 11/13/21] trazodone 50 mg tablet 50 mg PO HS 11/08/21 [History Confirmed 11/13/21] carvedilol 3.125 mg tablet 3.125 mg PO BID 11/12/21 [History Confirmed 11/13/21] enoxaparin 100 mg/mL subcutaneous syringe (Lovenox) 100 mg subcut Q12H 11/12/21 [History Confirmed 11/13/21] ferrous gluconate 324 mg (37.5 mg iron) tablet 324 mg PO BID 11/12/21 [History Confirmed 11/13/21] ondansetron HCl 4 mg tablet 4 mg PO Q6H PRN 11/12/21 [History Confirmed 11/13/21] albuterol sulfate 90 mcg/actuation aerosol inhaler (Ventolin HFA) 2 inh inhalation Q4H PRN 11/13/21 [History Confirmed 11/13/21] minocycline 100 mg capsule 100 mg PO DAILY 11/13/21 [History Confirmed 11/13/21] Active Medications Carvedilol (Carvedilol 6.25 Mg Tablet) 3.125 mg PO BID GABRIELE Last Admin: 11/14/21 08:32 Dose: 3.125 mg Enoxaparin Sodium (Enoxaparin 100 Mg/Ml Inj) 100 mg SUBCUT Q12H [facility] Last Admin: 11/14/21 11:35 Dose: 100 mg Ferrous Sulfate (Ferrous Sulfate 325 Mg Tablet) 325 mg PO BID [facility] Last Admin: 11/14/21 08:32 Dose: 325 mg Fluticasone Propionate (Fluticasone Propionate Nasal) 2 spray NOSTRIL-B DAILY [facility] Last Admin: 11/14/21 08:36 Dose: 2 spray Furosemide (Furosemide 20 Mg Tablet) 20 mg PO DAILY [facility] Last Admin: 11/14/21 08:33 Dose: 20 mg Ceftriaxone Sodium 2 gm/ (Sodium Chloride) 100 mls @ 200 mls/hr IVPB Q24H [facility] Last Infusion: 11/14/21 12:11 Dose: Infused Lactulose (Lactulose 20 Gm/30 Ml) 20 gm PO BID [facility] Last Admin: 11/14/21 08:36 Dose: 20 gm Omeprazole (Omeprazole [address]) 20 mg PO DAILY@0700 [facility] Last Admin: 11/14/21 06:35 Dose: 20 mg Ondansetron HCl (Ondansetron Odt 4 Mg Tab) 4 mg PO Q6H PRN Last Admin: 11/14/21 14:22 Dose: 4 mg Potassium Chloride (Potassium Chloride 10 Meq Capsule Er) 20 meq PO TIDWM [facility] Last Admin: 11/14/21 18:14 Dose: 20 meq Sodium Chloride (Sodium Chloride 0.9 % (Flush) 10 Ml Syringe) 5 ml IVF .FLUSH PRN Sodium Chloride (Sodium Chloride 0.9 % (Flush) 10 Ml Syringe) 5 ml IVF BID [facility] Last Admin: 11/14/21 08:36 Dose: 5 ml Spironolactone (Spironolactone 25 Mg Tablet) 25 mg PO BID [facility] Last Admin: 11/14/21 08:33 Dose: 25 mg Trazodone HCl (Trazodone Hcl 50 Mg Tablet) 50 mg PO HS [facility] Last Admin: 11/13/21 21:34 Dose: 50 mg Warfarin Sodium (Warfarin 5 Mg Tablet) 5 mg PO DAILYC [facility] Last Admin: 11/14/21 18:13 Dose: 5 mg Transfer Discharge Sum: Hosp Hospital Course Hospital course: Monica Haines is a 46 year old female with a complex hospital course. She initially presented with questionable GI bleeding with an INR of 15. The INR was corrected and pt was sent to [place] for GI assessment. EGD showed grade 1 esophageal varices. Pt was returned to [facility] where she was continued on PPI and Coreg. Pt has ascites and cirrhosis secondary to GOLDSMITH. Pt had a paracentesis prior to her trip to [place] which did not show SBP. Pt now has reaccumulation of ascites, mental status changes. increased weakness, tachypnea and was started on Rocephin as repeat paracentesis could not be done. As the day progressed, the pt became more tachypnic and confused. I called the middle school combination teacher at [facility] and reviewed the case with her. She agreed with management so far and is willing to accept Monica into the ICU at [facility]. Pt transferred via ALS ambulance. Time Spent with Patient Time attestation: Total time spent providing and/or coordinating transfer services:1 hour Exam Narrative: Exam Narrative: EXAM GENERAL: Patient appears Confused and obes EYES: No scleral icterus.al. THYROID: no thyroid nodules or thyromegaly. LYMPH: No supraclavicular or cervical lymphadenopathy. SKIN: diffuse bruising noted EXT: No dependent lower extremity pedal edema. HEART: Regular rate and rhythm with no murmurs, rubs, or gallops. Distant heart tones. LUNGS: scattered rhonchi noted. ABD: Increasingly distended with positive Fluid wave PSYCH: Good eye contact, speech is not pressured. Const: Vital Signs, click to edit/add: Vital Signs - 24 hr 11/13/21 23:00 11/13/21 23:00 11/14/21 03:30 Temperature 97.8 F 98.4 F Pulse Rate [Pulse Oximeter] 95 95 96 Respiratory Rate 22 22 28 H Blood Pressure [Le ft Arm] 122/76 116/73 Pulse Oximetry 100 99 Oxygen Delivery Me thod Room Air Room Air 11/14/21 07:00 11/14/21 07:00 11/14/21 11:00 Temperature 97.9 F 97.3 F L Pulse Rate [Pulse Oximeter] 96 96 90 Respiratory Rate 20 20 20 Blood Pressure [Le ft Arm] 127/75 123/73 Pulse Oximetry 100 99 Oxygen Delivery Me thod Room Air Room Air 11/14/21 15:00 11/14/21 15:35 11/14/21 15:35 Temperature 97.7 F Pulse Rate [Pulse Oximeter] 91 92 92 Respiratory Rate 24 36 H 36 H Blood Pressure [Le ft Arm] 147/88 H 145/119 H 145/119 H Pulse Oximetry 99 100 100 Oxygen Delivery Me thod Room Air Room Air Room Air 11/14/21 15:00 11/14/21 18:00 Temperature 97.1 F L Pulse Rate [Pulse Oximeter] 92 91 Respiratory Rate 36 H 36 H Blood Pressure [Le ft Arm] 125/93 H Pulse Oximetry 99 Oxygen Delivery Me thod Room Air Discharge Plan Discharge Disposition: Xfer [facility] Discharge Location: [facility] Date of Admission: 11/14/21 09:57 Attending Provider on Discharge: Kalina Villafuerte Consulting Providers: Arabella Coronado Primary Care Provider: Dl Oneil Discharge Medications: Continued loratadine [Allergy Relief (loratadine)] 10 mg tablet 10 mg PO QDAY pseudoephedrine HCl [Sudafed 12 Hour] 120 mg tablet extended release 120 mg PO DAILY fluticasone propionate [Allergy Relief (fluticasone)] 50 mcg/actuation spray,suspension 2 spray intranasal QDAY Rx Instructions: administer into each nostril furosemide 20 mg tablet 20 mg PO DAILY metformin 500 mg tablet 1,000 mg PO DAILY omeprazole 20 mg capsule,delayed release(DR/EC) 20 mg PO BID prochlorperazine maleate 10 mg tablet 10 mg PO TID PRN spironolactone 25 mg tablet 25 mg PO BID diphenhydramine-acetaminophen [Tylenol PM Extra Strength] 25-500 mg tablet 1 tab PO HS PRN warfarin 3 mg tablet See Rx Instructions PO QDAY Label Comments: KWONG 3 mg,M, 1.5 MG, TU 3 MG, W 1.5 MG, TH 3 MG, F 1.5 MG, SA 3 MG Rx Instructions: 1.5-3 PO every day; 1.5 mg Q Monday, and 3 mg Q Monday tramadol 50 mg tablet 50 - 100 mg PO Q6H PRN (Reason: pain) Qty: 90 0RF trazodone 50 mg tablet 50 mg PO HS gabapentin 300 mg capsule 900 mg PO BID Label Comments: PREFERS 300MG CAPSULE - EASIER TO SWALLOW carvedilol 3.125 mg tablet 3.125 mg PO BID Rx Instructions: must administer with a meal/food enoxaparin [Lovenox] 100 mg/mL syringe 100 mg subcut Q12H ferrous gluconate 324 mg (37.5 mg iron) tablet 324 mg PO BID ondansetron HCl 4 mg tablet 4 mg PO Q6H PRN Label Comments: TAKE 1 TABLET BY MOUTH EVERY 6 HOURS minocycline 100 mg capsule 100 mg PO DAILY albuterol sulfate [Ventolin HFA] 90 mcg/actuation HFA aerosol inhaler 2 inh inhalation Q4H PRN Discharge Orders: Discharge Order (Routine); Ordered 11/14/21 Ordered By: Chad Jackson Activity Level: Other Discharge Diet: Other Follow Up Appointments: Dl Oneil MD [Primary Care Provider] - Forms: [facility] Info Instructions
--- NOTE | 2021-11-14 23:46 | PC.NURSE ---
shift [id number] Pt this shift up to commode with 2 person assist and juanita lift. Pt remains confused, unable to answer questions appropriately. States her name is Mony and unable to answer her birthday. Repeated the name Mony when asked where she was. Cooperative with cares and medication administration. Tachypnea noted at 41 RR. LS clear, other vital signs WNL. PICC appears bloody and leaking under transparent film, flushed without observed active leaking. Multiple bruises in various stages as well as some superficial abrasions to upper and lower extremities. Attempting to get out from bed frequently, needing verbal redirections as well as a gentle touch as a reminder. Pt DC'd at 2200 to [facility] via [facility] and accompanied by sister. Nurse to Nurse report given via telephone.
--- NOTE | 2021-11-15 01:35 | ED.NURSE ---
accessed chart for ct results for [facility] icu [facility].
--- NOTE | 2021-11-15 18:54 | PC.NURSE ---
Critical Value-- Notified by lab of a positive blood culture after pt transferred to [facility]. Attempted to notify staff at [facility] but phone call was disconnected. Will attempt again.
== END 2021-11-14 22:00 | disposition short-term general hospital (02) | DRG 871 ==
PROVIDERS: Family Medicine; Admitting Provider Internal Medicine; PCP Family Medicine; Visit Provider Hospitalist
DX: A41.9 Sepsis, unspecified organism (principal); K65.2 Spontaneous bacterial peritonitis; G93.41 Metabolic encephalopathy; K76.6 Portal hypertension; R18.8 Other ascites; E87.1 Hypo-osmolality and hyponatremia; E44.0 Moderate protein-calorie malnutrition; I85.10 Secondary esophageal varices without bleeding; D68.51 Activated protein C resistance; K74.69 Other cirrhosis of liver; K72.90 Hepatic failure, unspecified without coma; K75.81 Nonalcoholic steatohepatitis (NASH); R65.20 Severe sepsis without septic shock; Z79.01 Long term (current) use of anticoagulants; E87.6 Hypokalemia; E66.9 Obesity, unspecified; Z68.37 Body mass index [BMI] 37.0-37.9, adult; Z87.820 Personal history of traumatic brain injury
CPT/HCPCS: 36415; 36573; 51798; 70450; 71045; 74177; 76705; 80048; 80053; 80076; 81003; 82140; 82945; 83605; 83735; 84132; 84145; 84157; 85018; 85025; 85610; 87040; 87070; 87186; 87205; 87635; 89051; 97162; 97165; 97530; A9270; C1751; G0378; J0696; J1650; J3475; J7030; J7050; P9047; Q9967

== ENCOUNTER 2021-11-14 21:50 | Outpatient (CLI) | payer OTHER, SELFPAY | END 2021-11-14 21:51 | disposition home or self-care (01) | LOC: AMB 12-14 11:51 | PROVIDERS: PCP Family Medicine; Visit Provider Family Medicine | DX: I85.00 Esophageal varices without bleeding (principal); K74.60 Unspecified cirrhosis of liver; R18.8 Other ascites | CPT/HCPCS: A0425; A0426 ==

== ENCOUNTER 2023-06-01 13:35 | Outpatient (CLI) | payer MEDICARE, OTHER, SELFPAY | END 2023-06-01 13:36 | disposition home or self-care (01) | LOC: AMB 06-07 17:13 | PROVIDERS: PCP Family Medicine; Visit Provider Student in an Organized Health Care Education/Training Program | DX: R10.9 Unspecified abdominal pain (principal) | CPT/HCPCS: A0425; A0427 ==

== ENCOUNTER 2024-02-13 08:22 | Outpatient (CLI) | payer MEDICARE, OTHER, SELFPAY | END 2024-02-13 08:23 | disposition home or self-care (01) | LOC: AMB 02-20 13:41 | PROVIDERS: PCP Family Medicine; Visit Provider Family Medicine | DX: K92.0 Hematemesis (principal) | CPT/HCPCS: A0425; A0427 ==

== ENCOUNTER 2024-09-02 11:02 | Outpatient (CLI) | payer MEDICARE, OTHER, SELFPAY | END 2024-09-02 11:03 | disposition home or self-care (01) | LOC: AMB 09-05 10:09 | PROVIDERS: Visit Provider Family Medicine | DX: S81.801A Unspecified open wound, right lower leg, initial encounter (principal); Z51.5 Encounter for palliative care | CPT/HCPCS: A0425; A0429 ==

== ENCOUNTER 2024-11-03 11:42 | Outpatient (CLI) | payer MEDICARE, SELFPAY | END 2024-11-03 11:43 | disposition home or self-care (01) | LOC: AMB 11-07 10:14 | PROVIDERS: Visit Provider Family Medicine | DX: R10.9 Unspecified abdominal pain (principal); R41.82 Altered mental status, unspecified; Z51.5 Encounter for palliative care | CPT/HCPCS: A0425; A0427 ==

== ENCOUNTER 2024-11-12 15:48 | Outpatient (CLI) | payer MEDICARE, SELFPAY | END 2024-11-12 15:49 | disposition home or self-care (01) | LOC: AMB 12-27 04:21 | PROVIDERS: Visit Provider Student in an Organized Health Care Education/Training Program | DX: R11.10 Vomiting, unspecified (principal); L08.9 Local infection of the skin and subcutaneous tissue, unspecified | CPT/HCPCS: A0425; A0427 ==

== ENCOUNTER 2024-11-21 17:17 | Outpatient (CLI) | payer MEDICARE, SELFPAY | END 2024-11-21 17:18 | disposition home or self-care (01) | LOC: AMB 11-25 16:43 | PROVIDERS: Visit Provider Emergency Medicine | DX: R41.82 Altered mental status, unspecified (principal); R10.9 Unspecified abdominal pain; R11.2 Nausea with vomiting, unspecified | CPT/HCPCS: A0425; A0433 ==

== ENCOUNTER 2024-11-27 16:50 | Outpatient (CLI) | payer MEDICARE, SELFPAY | END 2024-11-27 16:51 | disposition home or self-care (01) | LOC: AMB 12-02 16:40 | PROVIDERS: Visit Provider Family Medicine | DX: R41.82 Altered mental status, unspecified (principal); R00.1 Bradycardia, unspecified; R10.9 Unspecified abdominal pain | CPT/HCPCS: A0425; A0427 ==